=== PATIENT | male | born 1960 | race Caucasian/White ===

== ENCOUNTER → 2017-02-17 | Emergency (ER) | payer MEDICARE ==
[~2017-02-17] VITALS: Ht 200.7 cm; Wt 172.8 kg
[~2017-02-17] MED LIST: ALDACTONE100 MG PO; BACLOFEN20 MG PO; CYMBALTA60 MG PO; GOLYTELY SOLU4000 ML PO; INDERAL LA60 MG PO; JALYN 0.5-0.41 EACH PO; K-TAB ER20 MEQ PO; KRISTALOSE10 GM PO; LANTUS100 UNITS/ SUB-Q; LASIX20 MG PO; LEVAQUIN250 MG PO; MACRODANTIN100 MG PO; NORCO 7.5-3251 EACH PO; NYSTOP60 GM TOP; PROTONIX40 MG PO; XARELTO15 MG PO; XIFAXAN550 MG PO; ZOFRAN ODT4 MG PO
--- OUTSIDE RECORDS SUMMARY | ~2017-02-17 | XMS | Encounter Summary ---
Demographics + + + | Address | [address] | | | [place] [address] | + + + | Home Phone | | + + + | Preferred Language | Unknown | + + + | Marital Status | | + + + | Zoroastrianism Affiliation | Unknown | + + + | Race | White | + + + | Ethnic Group | Not or | + + + Author + + + | Author | [facility] | + + + | Organization | [facility] | + + + | Address | Unknown | + + + | Phone | Unavailable | + + + Support +------+ + + + +-------+ | Name | Relationship | Address | Phone | +------+ + + + +-------+ ECON | [address] | | [place] | [address] | +------+ + + + +-------+ Care Team Providers + +------+-------+ | Care Communications Program Manager Name | Role | Phone | + +------+-------+ | Conchita Walsh | PCP | tel | + +------+-------+ Encounter Details +--------+ + + + + | Date | Type | Department | Care Team | Description | +--------+ + + + + | 01/05/ | Abstract | Digestive Health | Clinic, | | | 2017 | | Center at [facility] 6th | Gastroenterology | | | | | Floor [address] | | | | | | [place] Mailcode: CH6D | | | | | | [place] [facility] | | | | | | and Healing, 6th | | | | | | Floor [place], [place] | | | | | | [address] | | | | | | [phone] | | | +--------+ + + + [...] + + | 04/20/ | Office | Hepatology | Tho Simmons MD | | | 2018 | Visit | | [address] | | | | | | [place], | | | | | | [place] [address] | | | | | | [phone] | | | | | | | | +--------+---------+ + + + as of this encounter Visit Diagnoses Not on filein this encounter"
--- OUTSIDE RECORDS SUMMARY | ~2017-02-17 | XMS | Encounter Summary ---
Demographics + + + | Address | [address] | | | [place] [address] | + + + | Home Phone | | + + + | Preferred Language | Unknown | + + + | Marital Status | | + + + | Taoist Affiliation | Unknown | + + + | Race | White | + + + | Ethnic Group | Not or | + + + Author + + + | Author | [facility] | + + + | Organization | [facility] | + + + | Address | Unknown | + + + | Phone | Unavailable | + + + Support +------+ + + + +-------+ | Name | Relationship | Address | Phone | +------+ + + + +-------+ ECON | [address] | | [place] | [address] | +------+ + + + +-------+ Care Team Providers + +------+-------+ | Care Life Sciences Teacher Name | Role | Phone | + +------+-------+ | Conchita Walsh | PCP | tel | + +------+-------+ Encounter Details +--------+ + + + + | Date | Type | Department | Care Team | Description | +--------+ + + + + | 01/05/ | Abstract | Digestive Health | Clinic, | | | 2017 | | Center at [facility] 6th | Gastroenterology | | | | | Floor [address] | | | | | | [place] Mailcode: CH6D | | | | | | [place] [facility] | | | | | | and Healing, 6th | | | | | | Floor [place], [place] | | | | | | [address] | | | | | | [phone] | | | +--------+ + + + [...] | | | | | [place], | | | | | | [place] [address] | | | | | | [phone] | | | | | | | | +--------+---------+ + + + as of this encounter Visit Diagnoses Not on filein this encounter"
== END ==
LOC: ED 04:29
PROC: 0T9B70Z Drainage of Bladder with Drainage Device, Via Natural or Artificial Opening (ICD-10-PCS; principal; 2017-02-17)
DX: T83.021A Displacement of indwelling urethral catheter, initial encounter (principal); I50.9 Heart failure, unspecified; J44.9 Chronic obstructive pulmonary disease, unspecified; E11.9 Type 2 diabetes mellitus without complications; Z88.1 Allergy status to other antibiotic agents; Z79.899 Other long term (current) drug therapy; Z79.891 Long term (current) use of opiate analgesic; Z79.4 Long term (current) use of insulin
CPT/HCPCS: 51702; 99283

== ENCOUNTER 2017-03-08 14:29 | Emergency (ER) | payer MEDICARE, OTHER ==
[~2017-03-08] VITALS: Ht 200.7 cm; Wt 190.5 kg
[~2017-03-08 14:29] MED LIST changes: -GOLYTELY SOLU4000 ML PO; -LEVAQUIN250 MG PO; -MACRODANTIN100 MG PO; -XARELTO15 MG PO; -XIFAXAN550 MG PO
[2017-03-08] MEDS ORDERED: XIFAXAN550 MG PO (17:24)
[2017-03-08] MEDS ORDERED: MACRODANTIN100 MG PO (17:25)
[2017-03-24] MEDS ORDERED: XARELTO15 MG PO (15:33)
[2017-03-24] MEDS ORDERED: LEVAQUIN250 MG PO (17:05)
== END 2017-03-08 17:37 | disposition home or self-care (01) ==
LOC: ED 14:29
PROC: 0T9B70Z Drainage of Bladder with Drainage Device, Via Natural or Artificial Opening (ICD-10-PCS; principal; 2017-03-08)
DX: N39.0 Urinary tract infection, site not specified (principal); D64.9 Anemia, unspecified; K72.90 Hepatic failure, unspecified without coma; I50.9 Heart failure, unspecified; J44.9 Chronic obstructive pulmonary disease, unspecified; E11.9 Type 2 diabetes mellitus without complications; Z88.1 Allergy status to other antibiotic agents; Z79.899 Other long term (current) drug therapy; Z79.4 Long term (current) use of insulin
CPT/HCPCS: 51702; 80053; 81001; 82140; 83880; 85025; 85610; 85730; 87077; 87088; 87186; 99283

== ENCOUNTER 2017-03-29 17:09 | Emergency (ER) | payer MEDICARE, OTHER ==
[~2017-03-29] VITALS: Ht 200.7 cm; Wt 190.5 kg
--- OUTSIDE RECORDS SUMMARY | ~2017-03-29 | XMS | Clinical Summary ---
Demographics + + + | Address | [address] | | | [place] [address] | + + + | Home Phone | | + + + | Preferred Language | Unknown | + + + | Marital Status | | + + + | Scientologist Affiliation | Unknown | + + + [...] [address] | | [place] | [address] | +------+ + + + +-------+ Care Team Providers + +------+-------+ | Care Cco Name | Role | Phone | + +------+-------+ | Conchita Walsh | PP | tel | + +------+-------+ Source Comments RUBEN is fully live on both [facility] and [facility] InPatient.[facility] Allergies Not on File Current Medications Not on file Active Problems Not on file Encounters +--------+ + + + + | Date | Type | Specialty | Care Team | Description | +--------+ + + + + | 01/05/ | Abstract | | Clinic, | | | 2016 | | | Gastroenterology | | +--------+ + + + + from Last 3 Months Social History + +-------+ +--------+------+ | Tobacco [...] | | | | | [place], | | | | | | [place] [address] | | | | | | [phone] | | | | | | | [...]
--- OUTSIDE RECORDS SUMMARY | ~2017-03-29 | XMS | Encounter Summary ---
Demographics + + + | Address | [address] | | | [place] [address] | + + + | Home Phone | | + + + | Preferred Language | Unknown | + + + | Marital Status | | + + + | Denominational Affiliation | Unknown | + + + | Race | White | + + + | Ethnic Group | Not or | + + + Author + + + | Author | [facility] | + + + | Organization | [facility] | + + + | Address | Unknown | + + + | Phone | Unavailable | + + + Support +------+ + + + +-------+ | Name | Relationship | Address | Phone | +------+ + + + +-------+ ECON | [address] | | [place] | [address] | +------+ + + + +-------+ Care Team Providers + +------+-------+ | Care Microsoft Office Instructor Name | Role | Phone | + +------+-------+ | Conchita Walsh | PCP | tel | + +------+-------+ Encounter Details +--------+ + + + + | Date | Type | Department | Care Team | Description | +--------+ + + + + | 01/05/ | Abstract | Digestive Health | Clinic, | | | 2017 | | Center at [facility] 6th | Gastroenterology | | | | | Floor [address] | | | | | | [place] Mailcode: CH6D | | | | | | [place] [facility] | | | | | | and Healing, 6th | | | | | | Floor [place], [place] | | | | | | [address] | | | | | | [phone] | | | +--------+ + + + [...] | | | | | [place], | | | | | | [place] [address] | | | | | | [phone] | | | | | | | | +--------+---------+ + + + as of this encounter Visit Diagnoses Not on filein this encounter"
--- OUTSIDE RECORDS SUMMARY | ~2017-03-29 | XMS | Encounter Summary ---
Demographics + + + | Address | [address] | | | [place] [address] | + + + | Home Phone | | + + + | Preferred Language | Unknown | + + + | Marital Status | | + + + | Gnosticist Affiliation | Unknown | + + + | Race | White | + + + | Ethnic Group | Not or | + + + Author + + + | Author | [facility] | + + + | Organization | [facility] | + + + | Address | Unknown | + + + | Phone | Unavailable | + + + Support +------+ + + + +-------+ | Name | Relationship | Address | Phone | +------+ + + + +-------+ ECON | [address] | | [place] | [address] | +------+ + + + +-------+ Care Team Providers + +------+-------+ | Care Transportation Dispatcher Name | Role | Phone | + +------+-------+ | Conchita Walsh | PCP | tel | + +------+-------+ Encounter Details +--------+ + + + + | Date | Type | Department | Care Team | Description | +--------+ + + + + | 01/05/ | Abstract | Digestive Health | Clinic, | | | 2017 | | Center at [facility] 6th | Gastroenterology | | | | | Floor [address] | | | | | | [place] Mailcode: CH6D | | | | | | [place] [facility] | | | | | | and Healing, 6th | | | | | | Floor [place], [place] | | | | | | [address] | | | | | | [phone] | | | +--------+ + + + [...] | | | | | [place], | | | | | | [place] [address] | | | | | | [phone] | | | | | | | | +--------+---------+ + + + as of this encounter Visit Diagnoses Not on filein this encounter"
--- OUTSIDE RECORDS SUMMARY | ~2017-03-29 | XMS | Clinical Summary ---
Demographics + + + | Address | [address] | | | [place] [address] | + + + | Home Phone | | + + + | Preferred Language | Unknown | + + + | Marital Status | | + + + | Islam Affiliation | Unknown | + + + [...] [address] | | [place] | [address] | +------+ + + + +-------+ Care Team Providers + +------+-------+ | Care Principal Solutions Architect Name | Role | Phone | + +------+-------+ | Conchita Walsh | PP | tel | + +------+-------+ Source Comments [facility]UB[facility] is fully [facility] both [facility] and [facility] Allergies Not on File Current [...] | | | | | [place], | | | | | | [place] [address] | | | | | | [phone] | | | | | | | [...]
[~2017-03-29 17:09] MED LIST changes: +CONSTULOSE10 GM/15 M PO; -INDERAL LA60 MG PO; -KRISTALOSE10 GM PO; +LEVAQUIN250 MG PO; +MACRODANTIN100 MG PO; +PROPRANOLOL HCL10 MG PO; +XARELTO15 MG PO; +XIFAXAN550 MG PO
[2017-03-29] MEDS ORDERED: GOLYTELY SOLU4000 ML PO (17:41)
== END 2017-03-29 18:27 | disposition home or self-care (01) ==
LOC: ED 17:09
PROC: 0T9B70Z Drainage of Bladder with Drainage Device, Via Natural or Artificial Opening (ICD-10-PCS; principal; 2017-03-29)
DX: Z46.6 Encounter for fitting and adjustment of urinary device (principal); E66.01 Morbid (severe) obesity due to excess calories; J44.9 Chronic obstructive pulmonary disease, unspecified; E11.22 Type 2 diabetes mellitus with diabetic chronic kidney disease; N18.9 Chronic kidney disease, unspecified; I50.9 Heart failure, unspecified; Z98.890 Other specified postprocedural states; Z88.1 Allergy status to other antibiotic agents; Z79.899 Other long term (current) drug therapy; Z79.4 Long term (current) use of insulin
CPT/HCPCS: 51702; 81001; 87088; 99283

== ENCOUNTER 2017-04-13 16:47 | Observation (INO) | payer MEDICARE, OTHER ==
[~2017-04-13] VITALS: Ht 200.7 cm; Wt 179.5 kg
--- OUTSIDE RECORDS SUMMARY | ~2017-04-13 | XMS | Clinical Summary ---
Demographics + + + | Address | [address] | | | [place] [address] | + + + | Home Phone | | + + + | Preferred Language | Unknown | + + + | Marital Status | | + + + | Adventist Affiliation | Unknown | + + + | Race | White | + + + | Ethnic Group | Not or | + + + Author + + + | Author | [facility] | + + + | Organization | [facility] | + + + | Address | Unknown | + + + | Phone | Unavailable | + + + Support +------+ + + + +-------+ | Name | Relationship | Address | Phone | +------+ + + + +-------+ ECON | [address] | | [place] | [address] | +------+ + + + +-------+ Care Team Providers + +------+ + | Care Head Of Transport Logistics Name | Role | Phone | + +------+ + | Conchita Walsh VENDOR QUALITY SUPERVISOR | PP | | + +------+ + Source Comments RUBEN is fully live on both [facility] and [facility] InPatient.[facility] Allergies Not on File Current Medications [...] Description | +--------+---------+ + + + | 04/20/ | Office | | Tho Simmons MD | | | 2018 | Visit | | [address] | | | | | | [place], | | | | | | [place] [address] | | | | | | [phone] | | | | | | | [...]
--- OUTSIDE RECORDS SUMMARY | ~2017-04-13 | XMS | Clinical Summary ---
Demographics + + + | Address | [address] | | | [place] [address] | + + + | Home Phone | | + + + | Preferred Language | Unknown | + + + | Marital Status | | + + + | Taoism Affiliation | Unknown | + + + [...] [address] | | [place] | [address] | +------+ + + + +-------+ Care Team Providers + +------+ + | Care Ginner Name | Role | Phone | + +------+ + | Conchita Walsh PRODUCTION GRIP | PP | | + +------+ + Source Comments RUBEN is fully live on both [facility] Amb[facility] and [facility] InPatient.[facility] Allergies Not on File Current [...] | | | | | [place], | | | | | | [place] [address] | | | | | | [phone] | | | | | | | [...]
--- OUTSIDE RECORDS SUMMARY | ~2017-04-13 | XMS | Clinical Summary ---
Demographics + + + | Address | [address] | | | [place] [address] | + + + | Home Phone | | + + + | Preferred Language | Unknown | + + + | Marital Status | | + + + | Confucianism Affiliation | Unknown | + + + [...] [address] | | [place] | [address] | +------+ + + + +-------+ Care Team Providers + +------+ + | Care Technical Operations Vice President Name | Role | Phone | + +------+ + | Conchita Walsh HIGHWAY LANDSCAPE ARCHITECT | PP | | + +------+ + Source Comments RUBEN is fully live on both [facility] Ambulatory and [facility] InPatient.[facility] Allergies Not on File Current Medications Not [...] | | | | | [place], | | | | | | [place] [address] | | | | | | [phone] | | | | | | | [...]
[~2017-04-13 16:47] MED LIST changes: +GOLYTELY SOLU4000 ML PO
--- NOTE | 2017-04-13 19:10 | NUR ---
SHIFT REPORT RECIEVED. PATIENT IN BED. DENIES PAIN AND STATES "I FEEL FINE". 3L NC PROVIDED PER PATIENT REQUEST. CALL LIGHT IN REACH.
--- NOTE | 2017-04-13 21:15 | NUR ---
PATIENT ASSESSMENT COMPLETE. PATIENT IS AAOX3. LUNGS ARE CLEAR. REPORTS PAIN IN HIS LOWER BACK, STATES THIS IS CHRONIC. ABD IS ROUND, SOFT, AND BOWEL SOUNDS ARE ACTIVE. PEDAL PULSES ARE WEAK/THREADY. SKIN ON LOWER EXTREMITIES IS RED, THICK AND ROUGH. PATIENT STATES THIS IS NORMAL FOR HIM. PATIENT IS LAYING IN BED, BUT DENIES DIZZINESS. PATIENT HAS MADERA IN PLACE THAT HE HAS HAD FOR A YEAR AND A HALF. OUTPUT IS DARK AND CONCENTRATED. PATIENT'S BP IS BELOW PARAMETERS. MD NOTIFIED. PATIENT'S BLOOD GLUCOSE WITHIN RANGE, NO INSULIN PER ORDERS. PATIENT REQUESTING A SNACK. PARTS IDENTIFICATION TECHNICIAN WILL BRING HIM A FRUIT PLATE. PATIENT'S IV IN RIGHT FOREARM FLUSHES EASILY.
--- NOTE | 2017-04-13 21:24 | NUR ---
FIRST UNIT OF PRBC ADMINISTERED. PRE BLOOD ADMIN VS COMPLETE. DISCUSSED ADVERSE REACTIONS WITH THE PATIENT AND HE VERBILIZED UNDERSTANDING. HE STATES HE HAS HAD BLOOD ADMINISTERED IN THE PAST WITHOUT ISSUE. BLOOD PRODUCT DOUBLE CHECKED WITH GRANT CAMPOS.
--- NOTE | 2017-04-13 21:40 | NUR ---
RN IN ROOM WITH PATIENT FOR FIRST 15MINS OF BLOOD ADMINISTRATION. BLOOD WAS RUNNING AT 75ML PER HOUR FOR THESE 15MINS. PATIENT HAS NO SIGNS OF ADVERSE REACTION. VS PERFORMED AND DOCUMENTED. BLOOD RUNNING AT 125 MLS/HR. WILL CONTINUE TO MONIOR.
--- NOTE | 2017-04-13 22:30 | NUR ---
PATIENT RESTING IN BED. BLOOD PRODUCTS INFUSING. IV SITE WNL. PATIENTS BREATHING IS REGULAR AND NONLABORED. CALL LIGHT IN REACH.
--- NOTE | 2017-04-14 | NUR ---
FIRST UNIT OF PRBC FINISHED. POST OP VS COMPLETE. MD CONTACTED ABOUT SYSTOLIC BP LOWER THAN PREVIOUS BP. NO NEW ORDERS. PATIENT DENIES ANY NEW SYMPTOMS. PATIENT IS LAYING IN BED. DENIES NEEDS AT THIS TIME. LAB UNABLE TO PROVIDED SECOND UNIT OF PRBC AT THIS TIME. NS INFUSING TO KEEP LINE PATENT.
--- NOTE | 2017-04-14 00:45 | NUR ---
SECOND UNIT OF PRBC STARTED. RN IN ROOM FOR FIRST 15MINS. BLOOD INFUSING AT 75MLS/HOUR. NO SIGNS OF ADVERSE REACTION. IV TIRTRATED UP TO 125ML/HOUR FOR THE REST OF THE UNIT OF BLOOD. PATIENT RESTING COMFORTABLY IN BED. DENIES NEEDS AT THIS TIME.
--- NOTE | 2017-04-14 01:40 | NUR ---
PATIENT RESTING IN BED. EYES CLOSED. RR 18. BLOOD PRODUCTS INFUSING, SITE WNL.
--- NOTE | 2017-04-14 03:15 | NUR ---
SECOND UNIT OF BLOOD HAS FINISHED. POST VITAL SIGNS DONE. PATIENT DENIES ANY NEW SYMPTOMS. IV IS FLUSHED AND SL. PATIENT DENIES ANY NEEDS AT THIS TIME. 3L NC IN PLACE. ALLOWED PATIENT TO REST. CALL LIGHT IN REACH.
--- NOTE | 2017-04-14 05:15 | NUR ---
LAB IN ROOM. PATIENT RESTING COMFORTABLY. HE DENIES ANY NEEDS THIS MORNING.
--- NOTE | 2017-04-14 05:23 | NUR ---
PATIENT RESTED ON AND OFF THROUGHOUT THE NIGHT. HE REPORTS ONLY FEELING TIRED. HE RECIEVED 2 UNITS PRBC. NO ADVERSE REACTION. BP HAS REMAINED LOW, MD AWARE. HE IS AAOX3. LUNGS ARE CLAER. MINIMAL EDEMA IN LOWER EXTREMITIES. CHRONIC MADERA. PATIENT HAS NOT BEEN OUT OF BED. USES WC AND WALKER AT HOME. 3L NC AT NIGHT.
--- NOTE | 2017-04-14 06:00 | NUR ---
CRITIAL LAB VALUE RECIEVED. NOTIFIED. NO NEW ORDERS. DOCUMENTED IN CRITICAL LAB VALUE BOOK.
--- NOTE | 2017-04-14 06:20 | NUR ---
PATIENT REPORTS FEELING TIRED THIS MORNING, BUT NOT DIZZY. HE HAS NO COMPLAINTS. LUNGS ARE CLEAR. ABD IS ROUND, SOFT, AND NONTEDER. BOWEL SOUNDS ACTIVE. MADERA IN PLACE. OUTPUT QS. CMS INTACT. IV SL. PATIENT WANTS TO ORDER BREAKFAST. NO MENU IN ROOM, WILL LOOK FOR ONE.
--- NOTE | 2017-04-14 07:20 | NUR ---
BEDSIDE HANDOFF REPORT RECEIVED FROM TRANSPORTATION ENGINEER RN. PT RESTING BED. PT WITH BLOODY NOSE, PROVIDED WITH WET WASH CLOTH. PT REQUESTING MENU TO ORDER BREAKFAST. PT DENIES OTHER NEEDS AT THIS TIME.
--- NOTE | 2017-04-14 08:29 | NUR ---
PT RESTIGN IN BED. PT ON 3L NC, CHRONIC NIGHT LEVEL, O2 SATS 100%, WEANED TO ROOM AIR, LUNG SOUNDS CLEAR, DENIES SOB. PT ASSISTED TO CHAIR FOR BREAKFAST, 1PA. PT BLOOD GLUCOSE 108, NO SS INSULIN GIVEN, DENIES NAUSEA, BOWEL TONES ACTIVE. PT WITH EDEMA TO BLE, 1+, PULSES PALPABLE. PT DENIES PAIN. SALINE LOCKED. MADERA CATH DRAINING FREELY. PT DENIES OTHER NEEDS AT THIS TIME. DISCUSSED PLAN OF CARE.
--- NOTE | 2017-04-14 09:58 | NUR ---
PT IS RESTING IN BED SAFELY WITH CALL LIGHT IN REACH. PT DID NOT NEED ANYTHING AT THE MOMENT
--- NOTE | 2017-04-14 11:13 | NUR ---
PT RESTING IN BED. PT DENIES NEEDS AT THIS TIME.
--- NOTE | 2017-04-14 11:57 | NUR ---
FAMILY MEMBER AT BEDSIDE, REQUESTING UPDATE. DISCUSSED MEDICATIONS, BLOOD TRANSFUSION LAST NIGHT, BLOOD LEVELS. PT DENIES OTHER NEEDS AT THIS TIME.
--- NOTE | 2017-04-14 13:50 | NUR ---
PT IS RESTING IN BED WITH CALL LIGHT IN REACH. PT ASKED FOR MORE ICE WATER
[2017-04-14] MEDS ORDERED: BACLOFEN20 MG PO (15:17)
--- NOTE | 2017-04-14 15:17 | NUR ---
PT TO RECIEVED 2 UNITS OF BLOOD. IV TO RIGHT FORARM, FLUSHED, INFILTATED. ATTEMPTED TO GAIN IV ACCESS, UANBLE TO OBTAIN, FLOAT RN AND ENZYME CHEMIST RN TO BED TO ATTMEP IV INSERTION, UNABLE. AWAITING ED RN TO COME TO BEDSIDE. PT RESTIGN IN BED.
[2017-04-14] MEDS ORDERED: ANORO ELLIPTA1 EACH INH (15:18)
[2017-04-14] MEDS ORDERED: HYDROCODON-ACE1 EAC8 PO (15:18)
[2017-04-14] MEDS ORDERED: ALBUTEROL2.5 MG/3 M INH (16:18)
--- NOTE | 2017-04-14 16:19 | NUR ---
MED REC COMPLETE
--- NOTE | 2017-04-14 17:12 | NUR ---
INFUSION 1 OF 2 STARTED. 2 RN VERIFICATION WITH SUKHJINDER FANG RN. THIS VACUUM EXTRACTOR OPERATOR REMAINED WITH PT DURING FIRST 15 MINUTES OF TRANSFUSION, NO S/S OF TRANSFUSION REACTION. PT EDUCATED ON S/S OF REACTION AND DIRECTED TO CALL NURSE IF EXPERIENCING SYMPTOMS.
--- NOTE | 2017-04-14 17:20 | NUR ---
PT BLOOD GLUCOSE 128, SS INSULIN HELD. PT COMPLAINT OF NAUSEA, ASSESSED FOR TRANSFUSION REACTION, NO S/S OF REACTION. DINNER AT BEDSIDE. PT DENIES OTHER NEEDS AT THIS TIME.
--- NOTE | 2017-04-14 17:58 | NUR ---
PT IS SITTING UP IN BED EATING HIS DINNER
--- NOTE | 2017-04-14 18:20 | NUR ---
PT DENIES PAIN. PT ON RA-3L, WEARS CHRONIC O2, LUNG SOUNDS CLEAR. PT TOLERATIGN REGULAR DIET, ACHS BG, HAS NOT REQUIRED SS NOVOLOG COVERAGE. PT UP WITH 1PA. NEW IV ACCESS OBTAINED TO RIGHT AC, RECEIVING FIRST UNIT OF BLOOD. PT WITH CHRONIC MADERA IN PLACE, DRAINING QS. PT HAD 1 LARGE BM TODAY, RECEIVING LACTULOSE. PT CONTINUES TO BE HYPOTENISVE.
--- NOTE | 2017-04-14 19:00 | NUR ---
SHIFT REPORT RECIEVED AT BEDSIDE. PATIENT APPEARED TO BE SLEEPING. OPENED HIS EYES WHEN RN ENTERED ROOM. PATIENT DENIES ANY NEEDS AT THIS TIME AND STATED HE HAD A GOOD DAY. 1ST UNIT OF PRBC INFUSING AT THIS TIME. IV SITE WNL. CALL LIGHT IN REACH.
--- NOTE | 2017-04-14 19:15 | NUR ---
FIRST UNIT OF BLOOD PRODUCT HAS FINISHED INFUSING. IV SITE WNL. NS FLUSHING LINE AT THIS TIME. CALLED LAB FOR SECOND UNIT. SONIA LUNSFORD WENT TO PICK IT UP.
--- NOTE | 2017-04-14 19:45 | NUR ---
SECOND UNIT OF PRBC STARTED. VERIFIED WITH SECOND RN, ANNEL. PRE VS COMPLETED, WNL.
--- NOTE | 2017-04-14 20:00 | NUR ---
PATIENT ASSESSMENT COMPLETE. PATIENT IS AAOX3. LUNGS ARE CLEAR, DIMINISHED IN THE BASES. 3L NC AT NIGHT, PATIENT DOES THIS AT HOME. ABD IS LARGE, ROUND, NONTENDER, AND BOWEL SOUNDS ACTIVE. PATIENT'S SKIN IS DUSKY ON HIS ABD AND LOWER EXTREMITIES. 1+ EDEMA IN THE LOWER EXTREMITIES. SKIN IS GROSSLY INTACT. DRY SKIN ON BACK, PATIENT STATES "I'VE BEEN BROKEN OUT FOR ABOUT A MONTH". LOTION APPLIED. PATIENT HAS CHRONIC MADERA, OUTPUT QS. PATIENT DENIES FEELING DIZZY OR LIGHTHEADED.
--- NOTE | 2017-04-14 20:15 | NUR ---
SECOND UNIT OF PRBC INFUSED AT 75ML/HR FOR FIRST 15MINS. RN STAYED IN ROOM WITH PATIENT. 15MIN VS COMPLETED, WNL. NO ADVERSE REACTION. PATIENT DENIES NEEDS. CALL LIGHT IN REACH. WILL CONTINUE TO MONITOR.
--- NOTE | 2017-04-14 20:35 | NUR ---
NO ADVERSE REACTION TO BLOOD INFUSION, RESTING, OPENS EYES EASILY, NO C/O PAIN, NO REQUESTS
--- NOTE | 2017-04-14 21:05 | NUR ---
PATIENT RESTING IN BED WATCHING TV. HE DENIES NEEDS AT THIS TIME. CALL LIGHT IN REACH.
--- NOTE | 2017-04-14 22:10 | NUR ---
2ND UNIT OF PRBC HAS FINISHED. NS INFUSING TO FLUSH LINE. IV SITE WNL. PATIENT RESTING WITH EYES CLOSED. RR18. CALL LIGHT IN REACH.
--- NOTE | 2017-04-14 23:10 | NUR ---
1 HOUR POST OP VS COMPLETED, WNL. PATIENT UP TO THE BATHROOM, SBA. PATIENT HAD LARGE SEMI-FORMED BM. LINENS CHANGED ON BED. PATIENT BACK TO BED. DENIES FURTHER NEEDS. IV FLUSHED WITH NS, WNL. CALL LIGHT IN REACH.
--- NOTE | 2017-04-15 01:01 | NUR ---
PATIENT RESTING IN BED. EYES CLOSED. RR18. CALL LIGHT IN REACH.
--- NOTE | 2017-04-15 03:10 | NUR ---
PATIENT RESTING IN BED. EYES CLOSED. RR18. CALL LIGHT IN REACH.
--- NOTE | 2017-04-15 05:27 | NUR ---
PATIENT SLEPT WELL THROUGHOUT THE NIGHT. RECIEVED 2 UNITS OF PRBC LAST NIGHT, NO REACTION. VS WNL. 3L NC AT NIGHT. SBA TO BATHROOM. LARGE SEMI FORMED BM LAST NIGHT. CHRONIC MADERA IN PLACE, OUTPUT QS. ADA DIET, BLOOD GLUCOSE CHECKS WITH MEALS.
--- NOTE | 2017-04-15 05:40 | NUR ---
MORNING ASSESSMENT AND MEDS GIVEN. PATIENT REPORTS FEELING TIRED THIS MORNING, BUT DENIES PAIN. HE IS ON 2L NC WHILE IN BED. LUNGS ARE CLEAR, DIMINISHED IN THE BASES. HIS ABD IS LARGE AND ROUND, SOFT AND NONTENDER. BOWEL SOUNDS ARE ACTIVE. 1+ EDEMA IN LOWER EXTREMITIES. DUSKY IN COLOR, WEAK PULSES. HE REPORTS A GOOD APPETITE AND IS EXCITED FOR BREAKFAST. HE IS HOPEFUL THAT HE GETS TO RETURN HOME TODAY.
--- NOTE | 2017-04-15 06:00 | NUR ---
DISCUSSED CONCERN OF PATIENT NOT HAVING MORNING LABS WITH HOSPITALIST. VERBAL ORDERS FOR CBC RECIEVED AND INPUT. LAB CONTACTED. PATIENT AWARE.
--- NOTE | 2017-04-15 07:10 | NUR ---
BEDSIDE HANDOFF REPORT RECEIVED FROM CHIEF OPERATING ENGINEER RN. PT RESTING IN BED. PT DENIES NEEDS AT THIS TIME.
--- NOTE | 2017-04-15 08:30 | NUR ---
PT SITTING ON EDGE OF BED. ATE BREAKFAST, BLOOD GLUCOE 134, SS INSULIN HELD. PT ON 2L NC, O2 SATS 100%, LUNG SOUNDS CLEAR WITH DIMINISHED BASES. PT TOLERATING REGULAR DIET, DENIES NAUSEA, BOWEL TONES ACTIVE. PT WITH IV SALINE LOCKED. CMS INATCT, 1+ EDEMA TO BLE. PT WITH CHRONIC MADERA, DRAINING FREELY. PT DENIES PAIN. MD TO BEDSIDE TO DISCUSS DISCHARGE FOR TODAY. PT DENIES OTHER NEEDS AT THIS TIME.
--- NOTE | 2017-04-15 11:35 | NUR ---
PT COMPLAINT OF HEADAHCE. OFFERED TYLENOL PER EMAR, PT DECLINING DUE TO LIVER IMPAIRMENT, REQUEST IBUPROFEN. MD CALLED, DISCUSSED PT REQUEST, MD WILL NOT ADD IBUPROFEN DUE TO RISK OF GASTRIC BLEEDING AND CHRONIC ANEMIA. DISCUSSED WITH PT AND EDUCATED ON TYLENOL WITH LIVER IMPAIRMENT, PT CONTINUES TO DECLINE, INSTRUCTED PT TO REST. AWAITING FAMILY TO ARRIVE FOR DISCHARGE.
== END 2017-04-15 13:10 | disposition home or self-care (01) ==
LOC: ED 16:47 → MS 16:49
PROVIDERS: ADMIT Internal Medicine
DX: D64.9 Anemia, unspecified (principal); K76.9 Liver disease, unspecified; N19 Unspecified kidney failure; J44.9 Chronic obstructive pulmonary disease, unspecified; E80.6 Other disorders of bilirubin metabolism; E72.20 Disorder of urea cycle metabolism, unspecified; R74.0 Nonspecific elevation of levels of transaminase and lactic acid dehydrogenase [LDH]; R79.89 Other specified abnormal findings of blood chemistry; E11.9 Type 2 diabetes mellitus without complications; G89.29 Other chronic pain; N40.0 Benign prostatic hyperplasia without lower urinary tract symptoms; E66.9 Obesity, unspecified; Z96.0 Presence of urogenital implants; Z77.22 Contact with and (suspected) exposure to environmental tobacco smoke (acute) (chronic); Z99.81 Dependence on supplemental oxygen; Z88.1 Allergy status to other antibiotic agents; Z68.41 Body mass index [BMI] 40.0-44.9, adult; Z79.2 Long term (current) use of antibiotics; Z79.4 Long term (current) use of insulin; Z79.899 Other long term (current) drug therapy
CPT/HCPCS: 36415; 36430; 80048; 80053; 82607; 82746; 83540; 83605; 83735; 83880; 85025; 85045; 85610; 86850; 86900; 86901; 86920; 96360; 99285; G0378; J7120; P9016

== ENCOUNTER 2017-04-27 16:28 | Inpatient (IN) | payer MEDICARE, OTHER ==
[~2017-04-27] VITALS: Ht 200.7 cm; Wt 157.9 kg
--- OUTSIDE RECORDS SUMMARY | ~2017-04-27 | XMS | Clinical Summary ---
Demographics + + + | Address | [address] | | | [place] [address] | + + + | Home Phone | | + + + | Preferred Language | Unknown | + + + | Marital Status | | + + + | Shinto Affiliation | Unknown | + + + [...] [address] | | [place] | [address] | +------+ + + + +-------+ Care Team Providers + +------+ + | Care Brand Protection Manager Name | Role | Phone | + +------+ + | Conchita Walsh AZURE DEVELOPER | PP | | + +------+ + Source Comments RUBEN is fully live on both [facility] Ambulatory and [facility] InPatient.[facility] Allergies Not on File Current Medications [...]
--- OUTSIDE RECORDS SUMMARY | ~2017-04-27 | XMS | Clinical Summary ---
Demographics + + + | Address | [address] | | | [place] [address] | + + + | Home Phone [...] [address] | | [place] | [id number] | +------+ + + + +-------+ Care Team Providers + +------+ + | Care Cage Manager Name | Role | Phone | + +------+ + | Conchita Walsh AUTOMOBILE UPHOLSTERY TRIM INSTALLER | PP | | + +------+ + Source Comments RUBEN is fully live on both [facility] and [facility] InPatient.[facility] Allergies Not on File Current Medications [...]
--- OUTSIDE RECORDS SUMMARY | ~2017-04-27 | XMS | Clinical Summary ---
Demographics + + + | Address | [address] | | | [place] [address] | + + + | Home Phone | | + + + | Preferred Language | Unknown | + + + | Marital Status | | + + + | Pentecostalism Affiliation | Unknown | + + + [...] [address] | | [place] | [address] | +------+ + + + +-------+ Care Team Providers + +------+ + | Care Office Mail Clerk Name | Role | Phone | + +------+ + | Conchita Walsh OFFICE NURSE PRACTITIONER | PP | | + +------+ + Source Comments RUBEN is fully live on both [facility] and [facility] InPatient.[facility] Allergies Not on File Current Medications [...]
[~2017-04-27 16:28] MED LIST changes: +ALBUTEROL2.5 MG/3 M INH; +ANORO ELLIPTA1 EACH INH; +HYDROCODON-ACE1 EAC8 PO
--- NOTE | 2017-04-27 21:19 | NUR ---
REPORT RECEIVED FROM Gomez SMITH. PT ARRIVES VIA STRETCHER. PT SOMNOLENT, WILL NOT ANSWER QUESTIONS, WILL ASSIST TO ROLL OVER IN BED WHEN ASKED. DOES NOT APPEAR TO BE IN ANY DISTRESS. LUNGS SOUND CLEAR, DIM IN BASES, 3L O2 VIA NC WHICH IS CHRONIC FOR HIM. HR REGULAR. BOWEL TONES ACTIVE. MADERA IN PLACE, NEW DRAINAGE BAG CONNECTED. BED ALARM IS ON FOR SAFETY, PT IS IN VIEW OF NURSES' STATION. WILL CONTINUE TO MONITOR.
--- NOTE | 2017-04-27 21:44 | NUR ---
PT'S SON AND IN ROOM TO VISIT PT AT THIS TIME.
--- NOTE | 2017-04-27 22:10 | NUR ---
LACTULOSE ENEMA GIVEN AT THIS TIME. PT CONTINUES TO REST, WILL NOT ANSWER QUESTIONS, BUT WILL FOLLOW DIRECTIONS TO ASSIST IN TURNING.
--- NOTE | 2017-04-27 23:11 | NUR ---
PT INCONTINENT OF LARGE, FORMED BM. PERICARE AND NEW CHUX PROVIDED. URINE SAMPLE SENT TO LAB, WILL CONTINUE TO MONITOR.
--- NOTE | 2017-04-28 00:10 | NUR ---
ASSESSMENT COMPLETED. PT REMAINS SOMOLENT, ABLE TO STATE HIS NAME, ONLY ORIENTED TO SELF. DOES NOT APPEAR TO BE IN ANY DISTRESS. LUNGS REMAIN CLEAR, 3L O2 VIA NC. HR REGULAR. BOWEL TONES ACTIVE. HAD A SMALL SMEAR OF BM, REGINALDO-CARE PROVIDED. MADERA PATENT, DRAINING ZACH URINE. SKIN REMAINS JAUNDICED, GENERALIZED EDEMA. WILL CONTINUE TO MONITOR.
--- NOTE | 2017-04-28 02:01 | NUR ---
PT RESTING, APPEARS TO HAVE SLIGHTLY BLOODY NOSE, NASAL CANNULA IS OUT OF NOSTRILS AND SATS 96-98%. REMOVED OXYGEN AT THIS TIME AND WILL CONTINUE TO MONITOR.
--- NOTE | 2017-04-28 04:08 | NUR ---
ASSESSMENT COMPLETED, NO CHANGES FROM PREVIOUS ASSESSMENT. PT RESTING, NO APPARENT DISTRESS. REMAINS ON RA, SPO2:97%. WILL CONTINUE TO MONITOR.
--- NOTE | 2017-04-28 05:56 | NUR ---
OSCAR FROM LAB CALLED TO NOTIFY ME OF CRITICAL LAB VALUE. HGB: 6.7. DR. BETTENCOURT NOTIFIED, NO NEW ORDERS RECEIVED AT THIS TIME.
--- NOTE | 2017-04-28 06:09 | NUR ---
NEW GOWN, TOP SHEET, AND BLANKET PROVIDED FOR PT. OLD ONES HAD LITTLE BIT OF BLOOD ON THEM FROM PT WIPING HIS NOSE.
--- NOTE | 2017-04-28 08:35 | NUR ---
IV SITE INTACT, NO REDNESS OR SWELLING NOTED, FLUSHES EASILY, PT DOES NOT FLINCH WITH FLUSH. PT ABLE TO ANSWER SOME YES OR NO QUESTIONS, NOT ALL. PT FOLLOWS DIRECTION WITH REPOSITIONING. PT APPEARS CALM DROWSY, NO ATTEMPT MADE BY THE PT TO COMMUNICATE OR INTERACT. VITALS STABLE AT THIS TIME.
--- NOTE | 2017-04-28 09:00 | NUR ---
COMPLETE BED CHANGE DONE. PT ABLE TO ASSIST WITH ROLLING BACK AND FORTH. FULL BED BATH DONE, SHAMPOO CAP. PT DROWSY AND SOMULENT DURING PROCESS, BUT COOPERATIVE.
--- NOTE | 2017-04-28 09:50 | NUR ---
PT ABLE TO SWALLOW WATER WELL. PT DENIES PAIN AT THIS TIME.
--- NOTE | 2017-04-28 12:01 | NUR ---
PT RRECENTLY MOVED FROM [facility]. BETH FIELDS MENTIONED THAT MED RECORDS FOR HIM ARE SKETCHY. PT IS IN LIVER FAILURE, HIGH AMONIA LEVELS IN BLOOD. PT WAS SOMEWHAT RESPONSIVE WHEN I ENTERED. ACKNOWLEDGED ME, DENIED ANY PAIN, THEN DRIFTED OFF. EXTENDED A BLESSING, WILL CONTINUE TO FOLLOW
--- NOTE | 2017-04-28 12:01 | NUR ---
IV SITE IN LEFT WRIST PULLED BY PT, NO REDNESS OR SWELLING NOTED, TIP OF CATH INTACT. NEW IV STARTED IN RT UPPER ARM BY MALGORZATA CAMPOS. PT CARMELO WELL, COOPERATIVE, NON COMMUNICATIVE. VITALS WNL AT THIS TIME. PT WILL ANSWER YES OR NO QUESTIONS BUT DOES NOT ATTEMPT TO CONVERSE.
--- NOTE | 2017-04-28 12:40 | NUR ---
PT DENIES DESIRE FOR LUNCH AT THIS TIME. REMINDED PT THAT HE IS ALLOWED TO ORDER A TRAY AT ANY TIME. PT IS AWARE THAT HE IS ON A CLEAR LIQUID DIET.
--- NOTE | 2017-04-28 14:33 | NUR ---
pt resting quietly at this time, vitals wnl. pt well able to reposition self in bed.
--- NOTE | 2017-04-28 15:12 | NUR ---
CLEAR LIQUID TRAY GIVEN TO PT, IS AT THE BEDSIDE ASSISTING TO FEED PT JELLO AND DRINK ENSURE.
--- NOTE | 2017-04-28 15:58 | NUR ---
PT SITTING UP IN BED DRINKING COFFEE. AT BEDSIDE. DISCUSSED CURRENT PLAN OF CARE, ALL QUESTIONS ANSWERED AT THIS TIME. PT DENIES PAIN, NAUSEA, AND SOB. PT LOC HAS BEEN SLOWLY INCREASING ALL SHIFT. PT CURRENTLY WILL ANSWER QUESTIONS WITH MORE THAN A "YES" OR "NO" ANSWER.
--- NOTE | 2017-04-28 16:30 | NUR ---
AT THE BEDSIDE DISCUSSING PLAN OF CARE AND OPTIONS WITH PT AND HIS ANDREA. ALL QUESTIONS ANSWERED. STATES SHE IS GOING HOME FOR THE NIGHT.
--- NOTE | 2017-04-28 17:40 | NUR ---
MADERA CATH CARE DONE, REGINALDO CARE DONE, NYSTATIN POWDER APPLIED BILAT GROIN FOLDS, TESTIES, AND UNDER PANUS. PT CARMELO WELL, MADERA IN PLACE AND DRAINING URINE WELL. URINE REMAINS ORANGE IN COLOR.
--- NOTE | 2017-04-28 17:52 | NUR ---
MD was notified of the increased respirations of 24 and the increase in temp to 100.0. MD ordered acetaminephine PRN.
--- NOTE | 2017-04-28 18:35 | NUR ---
PT EATING A HAMBURGER FOR DINNER, SITTING UP IN BED, MINIMAL ASSIST REQUIRED FOR PT TO EAT. 3 UNITS SLIDING SCALE INSULIN GIVEN WITH MEAL.
--- NOTE | 2017-04-28 19:34 | NUR ---
SHIFT REPORT RECEIVED FROM WILLIAN, STUDENT NURSE, AND DONNIE, RN. PT IS CURRENTLY RESTING IN BED. HE FINISHED 100% OF HIS DINNER. RA. BRIAN MADERA PATENT. PT DENIES REQUESTS AT THIS TIME.
--- NOTE | 2017-04-28 20:44 | NUR ---
ASSESSMENT COMPLETED. PT IS ALERT, FLAT AFFECT, ONLY ORIENTED TO SELF. DENIES PAIN. LUNGS CLEAR, DIM, RA. HR REGULAR. BOWEL TONES ACTIVE, DENIES NAUSEA. GENERALIZED EDEMA. CMS INACT. IV FLUSHED WNL, BRUISING NOTED AT IV INSERTION SITE, CIPRO INFUSION STARTED. CB, NO INSULIN COVERAGE REQUIRED. MADERA PATENT, DRAINING ORANGE URINE. HE DENIES NEEDS AT THIS TIME, LIGHTS DIMMED. WILL CONTINUE TO MONITOR.
--- NOTE | 2017-04-28 21:40 | NUR ---
CIPRO INFUSION COMPLETED, IV SALINE LOCKED AT THIS TIME. PT AWAKE, RESTING IN BED. DENIES NEEDS. WILL CONTINUE TO MONITOR.
--- NOTE | 2017-04-28 23:00 | NUR ---
CHECKED IN ON PT WHO IS RESTING, DENIES NEEDS. RR:20, SPO2: 100% ON RA. HR:80. SANTY PATENT. WILL CONTINUE TO MONITOR.
--- NOTE | 2017-04-29 00:15 | NUR ---
ASSESSMENT COMPLETED. NO CHANGES FROM PREVIOUS ASSESSMENT. PT RESTING, NO APPARENT DISTRESS. MADERA PATENT. WILL CONTINUE TO MONITOR.
--- NOTE | 2017-04-29 02:00 | NUR ---
CHECKED IN ON PT WHO IS AWAKE, RESTING IN BED. HELPED HIM PUT HIS GOWN BACK ON AND UNTANGLE HIS BP AND SPO2 CORDS. PT DENIES NEEDS AT THIS TIME. BRIAN MADERA PATENT. WILL CONTINUE TO MONITOR.
--- NOTE | 2017-04-29 03:58 | NUR ---
ASSESSMENT COMPLETED. NO CHANGES FROM PREVIOUS ASSESSMENT. PT DENIES PAIN AND NAUSEA. REMAINS ON RA, LUNGS CLEAR/DIM. IV SL. MADERA PATENT. REMAINS ORIENTED ONLY TO SELF. DENIES NEEDS, WILL CONTINUE TO MONITOR.
--- NOTE | 2017-04-29 06:01 | NUR ---
PT AWAKE, RESTING IN BED. CONTINUES TO DENY NEEDS. DOES NOT APPEAR TO BE IN ANY DISTRESS. SANTY VIDES. WILL CONTINUE TO MONITOR.
--- NOTE | 2017-04-29 08:43 | NUR ---
PT IS AWAKE AND FEEDING SELF BKF AT THIS TIME. HE IS EATING WELL AT THIS TIME. HOB ELEVATED, WATCHING TV AND NO C/O'S AT THIS TIME
--- NOTE | 2017-04-29 10:22 | NUR ---
Pt up with physical therapy for a walk. Walked for 5 minutes and now sitting up in chair. Transferring to med/surg today.
--- NOTE | 2017-04-29 10:32 | NUR ---
PATIENT NOW ON A 2 GRAM SODIUM DIET. HE HAS A FLAT AFFECT. SITTING UP IN CHAIR. HE LIKES EGGS AND TOAST FOR BREAKFAST. DOESN'T EAT LUNCH. SOMETIMES DRINKS BROTH. DINNER MIGHT BE STEAK, MAYBE A POTATO. HE SAYS HE DOES NOT EAT CANNED SOUPS, TV DINNERS, CHIPS, PRETZELS, OR CRACKERS. THAT'S ALL I COULD TALK TO HIM ABOUT BECAUSE HE WAS NOT FEELING WELL. LOW SODIUM NUTRITION THERAPY HANDOUT LEFT AT BEDSIDE.
--- NOTE | 2017-04-29 10:36 | NUR ---
PT HAS BEEN UP AMBULATING WITH PHYSICAL THERAPY, DID WELL WITH THIS, THEN TO THE CHAIR. WHILE IN THE CHAIR PT C/O NAUSEA 4MG IVP ZOFRAN GIVEN AT THIS TIME.
--- NOTE | 2017-04-29 11:46 | NUR ---
PT REMAINS UP IN THE CARE AM CARE COMPLETED AT THIS TIME, PT DENIES THAT HE WANTS TO EAT AT THIS TIME. CONTIOUES TO BE UP IN THE CHAIR WATCHING TV.
--- NOTE | 2017-04-29 12:44 | NUR ---
REPORT CALLED TO M/S JAVIER Wilks AT THIS TIME. ALL QUESTIONS ANSWERED AND PT WILL GO OVER VIA CHAIR WITH ALL PERSON BELONGINGS.
--- NOTE | 2017-04-29 13:00 | NUR ---
THIS SATELLITE TELEVISION INSTALLER AGREES WITH ALL OF THE STUDENTS NURSES CHARTING. (FOREIGN/DCKAIA).
--- NOTE | 2017-04-29 13:01 | NUR ---
PT TRANSFERED TO ROOM 107 VIA CHAIR. PT CARMELO THIS WELL. ALL PERSONAL BELONGINGS HAD BEEN SENT HOME WITH HIS ON ADMISSION PER STAFF THAT WAS WORKING. ALSO SEE CHARTING FROM ADMIT.
--- NOTE | 2017-04-29 17:53 | NUR ---
NEW CCU TRSF. END STAGE RENAL FAILURE. LAST AMMONIA 04/27 DR AWARE. CONT. ORAL ENULOSE - TAKING WELL. BS 125 AT DINNER - DID NOT EAT LUNCH OR HAVE COVERAGE. UP IN CH. DENIES NEEDS.
--- NOTE | 2017-04-29 19:46 | NUR ---
FLAT AFFECT, WATCHING TV, DENIES C/O PAIN. SL INTACT. ATTENDS IN PLACE, F.C PATENT, DRAINING ZACH COLORED URINE. JAUNDICED SKIN.
--- NOTE | 2017-04-29 21:35 | NUR ---
CHARGE NURSE ROUNDS, PT FLAT AFFECT, FOLLOWS INSTRUCTIONS, NO C/O PAIN, F/C INTACT, ABX IV INFUSING W/O PROBLEMS.
--- NOTE | 2017-04-30 00:55 | NUR ---
VITALS AND I&OS DONE AND CHARTED. BEDSIDE TABLE AND CALL LIGHT IN REACH. PT NEEDS NOTHING ELSE AT THIS TIME.
--- NOTE | 2017-04-30 02:11 | NUR ---
VITALS AND I&OS DONE AND CHARTED. INFORMED HIS RN KOTA OF LOW B\P. BEDSIDE TABLE AND CALL LIGHT IN REACH. PT NEEDS NOTHING ELSE AT THIS TIME.
--- NOTE | 2017-04-30 02:15 | NUR ---
Pt pulled iv r upper arm, tip intact, will restart iv, pt aware. Pt turns self in bed.
--- NOTE | 2017-04-30 05:45 | NUR ---
PT AWAKENS EASILY, CONTINUES TO HAVE FLAT AFFECT, SLOW RESPONSE TO QUESTIONS/INSTRUCTIONS, SPEAKS IN SLOW VOICE WITH DELAYED REACTION. SKIN JAUNDICED.PT HAS BRUISING BOTH ARMS AND LEGS. TOLERATING DIET W/O PROBLEMS. ON ROOM AIR, DENIES C/O SOB OR DISTRESS. PULLED IV FROM R ARM DURING THE NIGHT. WILL RESTART IV. WEARS ATTENDS, HAS NOT HAD A BM THIS SHIFT, SCHEDULED LACTULOSE GIVEN EARLIER THIS SHIFT. F/C PATENT DRAINING QS DARK YELLOW/ORANGE COLORED URINE. DENIES C/O ADVERSE REACTION TO ABX. TOOK MEDS W/O PROBLEMS, NO C/O LOW OR HIGH BLOOD SUGAR LEVELS. PT TURNS SELF IN BED. FOLLOWS INSTRUCTIONS WELL
--- NOTE | 2017-04-30 06:36 | NUR ---
UNABLE TO RESTART IV AFTER 5 TRIES BY 2 DIFFERENT RNS. PROCEDURE EXPLAINED TO PT. WARM PACKS APPLIED TO ARMS, PT DECLINED "THEY ARE TOO WARM". WILL NOTIFY INCOMING SHIFT AND INCOMING [facility]. PT NOTIFIED OF ABOVE. "OK" STATED. WILL NOTIFY MD IF INCOMING SHIFT IS UNABLE TO RESTART IV.
--- NOTE | 2017-04-30 07:00 | NUR ---
REPORT RECEIVED FROM BETH ESCUDERO. PT IS AWAKE AND LAYING IN BED. PT APPEARS COMFORTABLE.
[2017-04-30] MEDS ORDERED: CIPROFLOXACIN250 MG PO (09:16)
[2017-04-30] MEDS ORDERED: XIFAXAN550 MG PO (09:17)
--- NOTE | 2017-04-30 09:26 | NUR ---
PT UP TO CHAIR FOR BREAKFAST AND ASSESSMENT. IN TO SEE PT. PT STATES SHE IS SENDING HIM HOME AND HE IS EXCITED. MADERA DRAINING DARK YELLOW URINE. LUNGS CLEAR AND DIM. HR REGULAR.
--- NOTE | 2017-04-30 10:43 | NUR ---
PT DISCHARGED HOME WITH . IV HAD BEEN REMOVED DURING ROOF TILE LAYER. VS STABLE. WEARING A GOWN HOME WITH BLANKET OVER LAP DID NOT BRING CLOTHES. PT CONTINUES TO HAVE FLAT AFFECT WITH MOST EDUCATION DONE WITH . ANSWERED ALL QUESTIONS. HAD FILLED XIFAXIN ON DAY OF ADMIT SO SHE STATED SHE DOES NOT NEED THE FOLLOW UP FOR REFILL. WHEELED OUT TO CAR WITH SONIA SAMUELS.
--- NOTE | 2017-05-02 08:17 | NUR ---
ORDER, CLINICALS FAXED TO HOME HEALTH DEPT AT [facility]. CALLED AND SPOKE WITH VALERIO IN OFFICE TO LET HER KNOW OF FAX, AND THAT PATIENT WAS DISCHARGED TUESDAY.
== END 2017-04-30 10:33 | disposition home or self-care (01) | DRG 442 ==
LOC: ED 16:28 → CCU 19:35 → MS 04-29 12:55
PROVIDERS: ADMIT Internal Medicine
DX: K72.00 Acute and subacute hepatic failure without coma (principal); E72.4 Disorders of ornithine metabolism; E46 Unspecified protein-calorie malnutrition; N39.0 Urinary tract infection, site not specified; T83.511A Infection and inflammatory reaction due to indwelling urethral catheter, initial encounter; E66.9 Obesity, unspecified; D69.6 Thrombocytopenia, unspecified; I50.9 Heart failure, unspecified; J44.9 Chronic obstructive pulmonary disease, unspecified; Z66 Do not resuscitate; Z51.5 Encounter for palliative care; N18.9 Chronic kidney disease, unspecified; E11.22 Type 2 diabetes mellitus with diabetic chronic kidney disease; Z99.2 Dependence on renal dialysis; N40.1 Benign prostatic hyperplasia with lower urinary tract symptoms; N39.498 Other specified urinary incontinence; G89.29 Other chronic pain; Z79.4 Long term (current) use of insulin; D63.1 Anemia in chronic kidney disease; F17.221 Nicotine dependence, chewing tobacco, in remission
CPT/HCPCS: 36415; 80053; 81001; 82140; 83735; 85025; 85610; 86850; 86900; 86901; 87077; 87088; 87181; 87186; 97162; J0744; J2405

== ENCOUNTER 2017-05-13 14:40 | Inpatient (IN) | payer MEDICARE, OTHER ==
[~2017-05-13] VITALS: Ht 200.7 cm; Wt 148.9 kg
--- OUTSIDE RECORDS SUMMARY | ~2017-05-13 | XMS | Clinical Summary ---
Demographics + + + | Address | [address] | | | [place] [address] | + + + | Home Phone [...] [place], [place] | | | | | [phone] | | + + + + + Care Team Providers + +------+ + | Care Community Relations Liaison Name | Role | Phone | + +------+ + | Nico Conchita RUIZ | PP | | + +------+ + Source Comments [facility]UB[facility] both [facility] and [facility] InPatient.[facility] Allergies Not on File Current [...]
--- OUTSIDE RECORDS SUMMARY | ~2017-05-13 | XMS | Clinical Summary ---
Demographics + + + | Address | [address] | | | [place] [address] | + + + | Home Phone | | + + + | Preferred Language | Unknown | + + + | Marital Status | | + + + | Tenriism Affiliation | Unknown | + + + [...] [place], [place] | | | | | [address] | | + + + + + Care Team Providers + +------+ + | Care Roll Bucker Name | Role | Phone | + +------+ + | Nico Conchita RUIZ | PP | | + +------+ + Source Comments [facility]UB[facility] both [facility] and [facility] InPatient.[facility] Allergies Not on File Current Medications [...]
--- OUTSIDE RECORDS SUMMARY | ~2017-05-13 | XMS | Clinical Summary ---
Demographics + + + | Address | [address] | | | [place] [address] | + + + | Home Phone | | + + + | Preferred Language | Unknown | + + + | Marital Status | | + + + | Protestant Affiliation | Unknown | + + + [...] [place], [place] | | | | | [phone] | | + + + + + Care Team Providers + +------+ + | Care Program Mgr Name | Role | Phone | + +------+ + | Nico Conchita RUIZ | PP | | + +------+ + Source Comments [facility] and [facility] InPatient.[facility] Allergies Not on File Current Medications Not [...]
[~2017-05-13 14:40] MED LIST changes: +CIPROFLOXACIN250 MG PO
--- NOTE | 2017-05-13 19:15 | NUR ---
michael phillips in room to place midline. pt tolerated well.
--- NOTE | 2017-05-13 19:40 | NUR ---
in room to assess pt. pt remains confused. alert to self. denies pain. pts lungs clear. on ra. pt abdomen is distened but denies pain. bowel tones hypoactive. coy cath in place. cloudy urine. pt has 1 plus edema to lower extremities.
--- NOTE | 2017-05-13 19:45 | NUR ---
LE 1830: PHONE CALL RECEIVED FROM SURG TECH REPORTING CCU NEEDED A MIDLINE IN THIS PATIENT D/T LVS AND ONLY EXISTING LINE BEING 22G AND PATIENT NEEDS BLOOD. EMR REVIEWED AND 22G IS IN RIGHT AC. LEFT UPPER ARM VENOUS ANATOMY VISUALIZED USING SITE RITE ULTRASOUND AND BASILIC VEIN IS FOUND TO BE LARGER THAN 8 CROATIAN. ATTEMPT MADE TO ACCESS VEIN IS SUCCESSFUL; HOWEVER, I AM UNABLE TO THREAD THE CATHETER INTO PLACE. THIS ATTEMPT IS DISCONTINUED. SITE RITE ULTRASOUND USED AND LEFT BRACHIAL VEIN IS FOUND TO BE LARGER THAN 8 CROATIAN. ATTEMPT TO ACCESS THIS VEIN IS SUCCESSFUL AND A MIDLINE IS PLACED WITH NO COMPLICATIONS. PATIENT TOLERATES THE ENTIRE PROCEDURE WELL. LINE IS FLUSHED EASILY W/20 ML NS AND BRIGHT RED BLOOD BRISKLY RETURNS. DRESSING IS PLACED AND VERBAL REPORT IS GIVEN AND QUESTIONS ARE ANSWERED. THIS ENTIRE PROCEDURE IS COMPLETED USING STERILE TECHNIQUE PER PROTOCOL.
--- NOTE | 2017-05-13 20:21 | NUR ---
PT SITTING UP IN BED EATING BOXED LUNCH. PT NEEDED MINIMAL ASSISTANCE WITH EATING.
--- NOTE | 2017-05-13 21:01 | NUR ---
in room to place attends on pt. irina care and cath care performed at this time. pts penis red. pt stated, "its sore down there".
--- NOTE | 2017-05-13 23:08 | NUR ---
PT RESTING IN BED. REMAINS ORIENTED TO SELF ONLY. PT FOLLOWING COMANDS. VISIBLE FROM NURSES STATION.
--- NOTE | 2017-05-13 23:40 | NUR ---
IN ROOM TO COMPLETE ASSESSMENT. PT REMAINS CONFUSED. ORIENTED TO SELF. REPOSITIONED IN BED. MINIMAL ASSISTANCE PROVIDED FROM PT WITH REPOSITIONING.
--- NOTE | 2017-05-14 01:56 | NUR ---
pt resting in bed watching tv. remains confused. oriented to self.
--- NOTE | 2017-05-14 03:18 | NUR ---
pt resting in bed with eye's closed. respirations even and unlabored. visible from nurses station.
--- NOTE | 2017-05-14 03:34 | NUR ---
in room to boost and reposition pt. pt tolerated well. visible from nurses station.
--- NOTE | 2017-05-14 06:01 | NUR ---
in room to draw lab from midline. good blood return. flushed line with 20cc ns following blood draw. pt continues to be confused. easily reoriented. pt able to follow commands.
--- NOTE | 2017-05-14 07:30 | NUR ---
BEDSIDE REPORT RECIEVED. PATIENT IS LAYING ON RIGHT SIDE IN BED. DENEIS PAIN. IVF INFUSING AT 75 ML/HR. IS NOT AWARE OF TIME, PLACE.
--- NOTE | 2017-05-14 09:15 | NUR ---
DR. CHAN HERE TO SEE PATIENT, ORDERS RECIEVED. WILL RECIEVE TWO UNITS OF PRBC'S TODAY.
--- NOTE | 2017-05-14 09:30 | NUR ---
1ST UNIT OF PRBC'S HUNG.
--- NOTE | 2017-05-14 10:30 | NUR ---
LARGE SOFT TO LIQUID STOOL ON BEDPAN. IS COOPERATIVE. IS FOLLOWING COMMANDS.
--- NOTE | 2017-05-14 13:30 | NUR ---
2ND UNIT OF PRBC'S INFUSED. TOLERATED TRANSFUSION WELL. HAS BEEN RESFUL.
--- NOTE | 2017-05-14 14:20 | NUR ---
INCONT OF EXTRA LARGE LIQUID BROWN STOOL. BED LINEN CHANGED.
--- NOTE | 2017-05-14 14:40 | NUR ---
OOB TO COMMODE WITH ASSIST. MOVING BETTER. HAD LARGE LIQUID STOOL. SAT ON COMMODE FOR APPROX 15 MIN THEN BACK TO BED.
--- NOTE | 2017-05-14 17:49 | NUR ---
MONITOR DC'D. PATIENT WILL BE TRANSFERRED TO MEDICAL FLOOR THIS EVENING. SITTING UP IN BED TO EAT DINNER.
--- NOTE | 2017-05-14 18:45 | NUR ---
RECEIVED REPORT FROM RN. PATIENT IS RESTING IN BED, BREATHING IS EVEN AND UNLABORED. NO NEEDS AT THIS TIME. CALL LIGHT WITHIN REACH.
--- NOTE | 2017-05-14 21:51 | NUR ---
PATIENT RESTING IN BED, BREATHING IS EVEN AND UNLABORED. DENIES NEEDS AT THIS TIME. ASSESSMENT DONE, MEDICATIONS GIVEN. CALL LIGHT WITHIN REACH, BED ALARM ON.
--- NOTE | 2017-05-14 23:01 | NUR ---
2 PA STANDBY ASSISTED PATIENT TO USE THE BEDSIDE COMMODE AND BACK TO BED. CALL LIGHT WITHIN REACH. NO OTHER NEEDS AT THIS TIME. BED ALARM ON.
--- NOTE | 2017-05-14 23:55 | NUR ---
PATIENT RESTING COMFORTABLY IN BED, BREATHING IS EVEN AND UNLABORED. CALL LIGHT WITHIN REACH.
--- NOTE | 2017-05-15 01:39 | NUR ---
PATIENT RESTING IN BED, BREATHING IS EVEN AND UNLABORED. DENIES NEEDS AT THIS TIME. CALL LIGHT WITHIN REACH, BED ALARM ON.
--- NOTE | 2017-05-15 03:48 | NUR ---
PATIENT RESTING COMFORTABLY IN BED, BREATHING IS EVEN AND UNLABORED ON 1L O2 VIA NC. DENIES NEEDS AT THIS TIME, DENIES PAIN. ASSESSMENT DONE. CALL LIGHT WITHIN REACH, BED ALARM ON.
--- NOTE | 2017-05-15 04:42 | NUR ---
PATIENT'S NIGHT WAS UNEVENTFUL. HE HAS BEEN RESTING OFF AND ON THROUGHOUT NIGHT. VSS, URINE OUTPUT QS. NO COMPLAINTS OF PAIN. PATIENT AFFECT IF FLAT/WITHDRAWN, CONFUSED AT TIMES. ALERT AND ORIENTED MAJORITY OF SHIFT. TRACE EDEMA IN BLE NOTED. LUNGS ARE CLEAR THROUGHOUT, O2 SATURATION >92% ON 1L O2 VIA NC. PATIENT'S BOWEL TONES ARE ACTIVE, HAS FREQUENT LOOSE STOOL. CHRONIC MADERA IN PLACE. SCLERAL JAUNDICE NOTED, BROWN DISCOLERATION OF BLE. 1PA/FWW TO COMODE. IV FLUIDS INFUSING THROUGH MIDLINE. NO ACUTE CHANGES FROM BEGINNING OF SHIFT.
--- NOTE | 2017-05-15 06:24 | NUR ---
PATIENT RESTING COMFORTABLY IN BED, BREATHING IS EVEN AND UNLABORED. CALL LIGHT WITHIN REACH, BED ALARM ON.
--- NOTE | 2017-05-15 07:30 | NUR ---
RECEIVED REPORT FROM CANOE BUILDER. PATIEENT STILL SLEEPING, RESPS REGULAR AND EVEN.
--- NOTE | 2017-05-15 07:49 | NUR ---
patient was in bed i got his breakfast order, he said he would get moving when breakfast came.
--- NOTE | 2017-05-15 08:19 | NUR ---
PATIENT AWAKE EATING BREAKFAST. PATIENT HAS TAKEN ALL AM MEDS. PATIENT HAVING NO PAIN. BLOOD SUGAR WITHIN PARAMETERS, NO INSULIN GIVEN.
--- NOTE | 2017-05-15 08:48 | NUR ---
DID PATIENT'S BLOOD SUGAR CHECK NOW IS UP EATING HIS BREAKFAST IN BED.
--- NOTE | 2017-05-15 09:06 | NUR ---
IKEEINT WAS IN BED, HE HAD FINISHED HIS BREKAFAST, HE ASKED FOR THE BED TO BE PUT DOWN(MEANING THE LEGS OF THE BED) AND THAT HE DIDNT NEED ANYTHING ELSE. I DID PATIENTS VS AND INPUT AND OUTPUT. HE WILL PUSH THE CALL LIGHT IF HE NEEDS ANYTHING ELSE.
--- NOTE | 2017-05-15 09:30 | NUR ---
PATIENT FINISHED BREAKFAST AND IS ONCE AGAIN SLEEPING, EYES CLOSED, RESPS EVEN. SCD'S ON.
--- NOTE | 2017-05-15 11:30 | NUR ---
PATIENT RESTING QUIETLY WATCHING TV. PATIENT SAYS HE IS HAVING NO PAIN AND HAS NO CONCERNS AT THIS TIME.
--- NOTE | 2017-05-15 12:29 | NUR ---
PATIENT SITTING UP IN CHAIR, USED CALL LIGHT. STANDBY ASSIST TO BED, EMPTIED FOLLEY. IN ROOM. CALL LIGHT IN REACH. NO OTHER NEEDS.
--- NOTE | 2017-05-15 13:30 | NUR ---
PATIENT CONTINUES TO SIT AND WATCH TV. PER PHYSICAL THERAPY PATIENT TAKES VERY TINY STEPS, IS VERY UNSTEADY AND CANNOT WALK BACKWORDS AT ALL.
--- NOTE | 2017-05-15 13:59 | NUR ---
PATIENT RELAXING IN BED, EYES CLOSED. VITALS AND I/O'S DONE. FRESH ICE WATER GOVEN. CALL LIGHT IN REACH. NO OTHER NEEDS.
--- NOTE | 2017-05-15 15:35 | NUR ---
PATIENT STILL HAS NO QUESTIONS AND IS JUST LAYING IN BED WATCHING MOVIES. MADERA BAG CHANGED VIA STERILE TECHNIQUE PER 'S REQUEST DUE TO THE OLDER TUBING AND COLLECTION BAGS APPEARANCE.
--- NOTE | 2017-05-15 18:09 | NUR ---
PATIENT LAYING IN BED WATCHING TV. IN ROOM. VITALS,I/O'S DONE GARBAGE EMPTIED. FOLLEY EMPTIED. PATIENTS ASKED WHY HIS FOLLEY WAS CHANGED TODAY, THIS LIFE SCIENTIST TOLD HER I WOULD ASK BETH MACK. CALL LIGHT IN REACH, NO OTHER NEEDS.
--- NOTE | 2017-05-15 18:36 | NUR ---
PATIENT IS VERY UNSTEADY ON HIS FEET AND WAS UP TO THE CHAIR ONCE TODAY WITH PT. PATIENT HAS SPENT MOST OF THE DAY IN BED WATCHING TV OR ON HIS PHONE. FLAT AFFECT, BUT ALERT AND ORIENTED. LEFT UPPER ARM MIDLINE OF D5LR AT 75MLS/HR RUNNING WELL AND 22G RAC IV FLUSHES WELL. HAS WANTED THE PATIENT TO HAVE AT LEAST 3 BOWEL MOVEMENTS TODAY AND PT HAS HAD LACTULOSE ORDERED Q2HRS UNTIL HE HAS 3 STOOLS THEN THE LACTULOSE ORDER WILL CHANGE. PATIENT HAS JUST NOW HAD A BOWEL MOVEMENT I WAS GOING TO GET HIM A SUPPOSITORY.
--- NOTE | 2017-05-15 20:30 | NUR ---
TWO PERSON ASSIST UP TO BSC, LG LIQUID BROWN STOOL. INC OF STOOL ALSO IN ATTENDS. GOOD SKIN CARE GIVEN, ASSISTED BACK TO BED . CALL LIGHT IN EASY REACH. AND SON AT BEDSIDE VISITING.
--- NOTE | 2017-05-15 23:21 | NUR ---
INC OF LARGE AMOUNT OF LOOSE BROWN STOOL, LINENS CHANGE AND GOODSKIN CARE, PT STATES HE IS COMFORTABLE, MADERA PATENT WITH YELLOW URINE, IVF INFUSING. IS GOING HOME FOR THE EVENING. CALL LIGHT IN EASY REACH.
--- NOTE | 2017-05-16 00:13 | NUR ---
Pt used call light "this came out of my mouth or my nose stated". Pt noted to have 1 1/2 in thick red mucus. Nares examined with q tip, clear, no nasal drainage noted. motuh care done and noted to have a 1/8 in piece of red thick mucus. Sample to be sent to lab. Primary RN to be notified and she will notify Dr in am. Pt denies sob, no cough noted dueinr this interaction
--- NOTE | 2017-05-16 00:32 | NUR ---
SPOKE WITH DR CHAN RE: TISSUE APPEARING MUSOUS PT COUGHED UP. FEELS IT IS FROM RECENT BLOODY NOSE AND NO NEED TO SEND TO LAB.
--- NOTE | 2017-05-16 02:35 | NUR ---
ONE PERSON ASSIST UP TO BSC. SMALL LOOSE BROWN STOOL, MADERA PATENT WITH YELLOW URINE, PT STATES HE IS COMFORTABLE, BACK TO BED AND POSITIONED WITH PILLOWS FOR COMFORT. CALL LIGHT IN EASY REACH. IVF PATENT.
--- NOTE | 2017-05-16 04:00 | NUR ---
RESTING QUIETLY ON BED, RESP EVEN AND UNLABORED. IVF PATENT , CALL LIGHT IN EASY REACH.
--- NOTE | 2017-05-16 08:45 | NUR ---
MORNING ASSESSMENT DUE. PT SITTING UP IN BED EATING BREAKFAST. PT DENIES PAIN AND NAUSEA. PT FRIENDLY BUT DISORIENTED TO PLACE, AND DATE. ASSESSMENT DONE. MEDICATIONS GIVEN (SEE MAR). WOUND CARE PERFORMED WITH 2ND RN ASSIST. PT HAS THE FOLLOWING SKIN WOUNDS: 1. LEFT FOOT - REDDEDNED AREA, BLANCHABLE 2. LEFT AND RIGTH SHINS - SCABS. 3. ABDOMEN - SCAR 4. BUTTOX - BILATERAL ULCERS STAGE 1, BLEEDING NONBLANCHABLE REDDENED AREA BETWEEN BUTTOX 5. SCROTAL AREA AND PENUS - NONBLANCHABLE REDDENESS. 6. RIGHT HAND - LARGE BRUISE FROM PREVIOUS IV START. 7. LEFT WRIST - ABRASIONS 8 GENERALIZED REDENED RASH. THIS RN PREFORMED SKIN CARE AND DRESSING CHANGES. ZINC OXIDE APPLIED TO BUTTOX. NYSTATIN APPLIED TO SCRTOAL CREVICES. DEPENDS IN PLACE. NO ALLEVYN AT THIS TIME R/T PLAN FOR PT TO SHOWER LATER THIS MORNING. WARM BLANKETS PROVIDED FOR PT. PT REPOSITIONED. PT RESTING WITH EYES CLOSED. RR 20 BPM. BED RAILS UP. CALL LIGHT WITHIN REACH.
--- NOTE | 2017-05-16 08:46 | NUR ---
PATIENT UP TO CHAIR WITH 1 PERSON ASSIST WITH FWW. HANDS AND FACE WASHED. PATIENT WOULD LIKE TO SHOWER AND BRUSH TEETH AFTER BREAKFAST. CALL BUTTON IN REACH. FRESH ICE WATER GIVEN. LINENS CHANGED. NO OTHER NEEDS AT THIS TIME.
--- NOTE | 2017-05-16 09:30 | NUR ---
PT UP IN CHAIR FINISHING BREAKFAST. PATIENT ORIENTED EXCEPT FOR DATE. PATIENT STATES "IM MUCH BETTER". PATIENT WISHES TO RETURN HOME AT DISCHARGE. PATIENT STILL HAS HOME HEALTH SERVICES AND WOULD LIKE TO CONTINUE WITH THAT. STATES HIS WILL BE IN LATER TODAY. NO QUESTIONS AT THIS TIME.
--- NOTE | 2017-05-16 09:40 | NUR ---
MORNING MEDS DUE. PT UP TO CHAIR EATING BREAKFAST. PT ORIENTED X4 AT THIS TIME. MORNING ASSESSMENT DONE. MEDICAITONS GIVEN (SEE MAR). PICC LINE SALINE LOCKED FOR AMBULATION WITH PHYSICAL THERAPY. PT WORKING WITH PHYSICIAL THERAPY. NO REQUESTS OR COMPLAINTS AT THIS TIME.
--- NOTE | 2017-05-16 10:39 | NUR ---
NEW ORDER FOR LACTULOSE. PT UP TO CHAIR AND TALKING ON PHONE. PT STATES "DOCTOR IS GOING TO TALK TO THE PHYSICAL THERAPIST AND SEE IF I CAN GO HOME TODAY." MEDICAITON GIVEN ORDERED (SEE MAR). PT WATCHING TV. NO REQUESTS OR COMPLAINTS AT THIS TIME.
--- NOTE | 2017-05-16 11:25 | NUR ---
RT IN ROOM WITH PATIENT. PATIENT SITTING UP IN CHAIR. CALL BUTTON IN REACH. FRESH ICE WATER GIVEN. NO NEEDS AT THIS TIME.
--- NOTE | 2017-05-16 12:48 | NUR ---
PT WELCOMED ME INTO HIS RM. SITTING IN CHAIR, PT ALERT AND ORIENTED. SEEMED PLEASANT, MENTIONED HE FELT HE WAS DOING MUCH BETTER-SLEPT WELL DURING THE NIGHT. PT PREFERS TO BE CALLED "BUD". WILL FOLLOW NEEDED
[2017-05-16] MEDS ORDERED: SULFAMETHOXAZO1 EAC1 PO (12:55)
[2017-05-16] MEDS ORDERED: CONSTULOSE10 GM/15 M PO (12:57)
--- NOTE | 2017-05-16 13:29 | NUR ---
PATIENT UP TO SHOWER WITH ONE PERSON ASSIST WITH FWW. PATIENT SITTING DOWN ON SHOWER CHAIR. IN ROOM PATIENT HAS CALL CORD IN REACH.
--- NOTE | 2017-05-16 13:48 | NUR ---
PT DRESSED AND READY FOR DISCHARGE. PHARMACIST AT BEDSIDE REVIEWING MEDICAITONS WITH PT AND . PT AND VERBALIZE UNDERSTANDING. LACTULOSE GIVEN ORDERED (SEE MAR). THIS RN REVIEWS DISCHARGE INSTRUCTIONS WITH PT AND . PT AND VERBALIZE UNDERSTANDING AND STATE THEIR QUESTIONS HAVE BEEN ANSWERED. VITALS TAKEN. PIV AND MID LINE DC'D. PT BELONGINGS COLLECTED.
--- NOTE | 2017-05-16 14:20 | NUR ---
PT WHEELED FROM MED/SURG AT 1410. PT STATES HE NO QUESTIONS OR CONCERNS AND THAT HE UNDERSTANDS ALL INSTRUCTIONS. PTS TO ACCOMPANY HOME AND ASSIST NEEDED. HOME HEALTH TO FOLLOW UP WITH HOME CARE.
== END 2017-05-16 14:10 | disposition home or self-care (01) | DRG 698 ==
LOC: ED 14:40 → CCU 17:35 → MS 05-14 19:14
PROVIDERS: ADMIT Internal Medicine
PROC: 30233N1 Transfusion of Nonautologous Red Blood Cells into Peripheral Vein, Percutaneous Approach (ICD-10-PCS; principal; 2017-05-13)
PROC: 05H633Z Insertion of Infusion Device into Left Subclavian Vein, Percutaneous Approach (ICD-10-PCS; 2017-05-13)
DX: T83.511A Infection and inflammatory reaction due to indwelling urethral catheter, initial encounter (principal); K72.00 Acute and subacute hepatic failure without coma; K76.6 Portal hypertension; J96.11 Chronic respiratory failure with hypoxia; D62 Acute posthemorrhagic anemia; D61.818 Other pancytopenia; N39.0 Urinary tract infection, site not specified; B95.62 Methicillin resistant Staphylococcus aureus infection as the cause of diseases classified elsewhere; Y84.6 Urinary catheterization as the cause of abnormal reaction of the patient, or of later complication, without mention of misadventure at the time of the procedure; D73.1 Hypersplenism; K74.60 Unspecified cirrhosis of liver; J44.9 Chronic obstructive pulmonary disease, unspecified; N40.1 Benign prostatic hyperplasia with lower urinary tract symptoms; R33.8 Other retention of urine; K21.9 Gastro-esophageal reflux disease without esophagitis; F10.21 Alcohol dependence, in remission; F39 Unspecified mood [affective] disorder; G89.4 Chronic pain syndrome; E11.9 Type 2 diabetes mellitus without complications; Z79.4 Long term (current) use of insulin; Z99.81 Dependence on supplemental oxygen
CPT/HCPCS: 36415; 36430; 36569; 80053; 81001; 82140; 83735; 85025; 86703; 86706; 86803; 86850; 86900; 86901; 86920; 87077; 87088; 87186; 87340; 94640; 97116; 97163; 97530; C1751; J2405; J3475; J7120; P9016

== ENCOUNTER 2017-05-27 18:01 | Observation (INO) | payer MEDICARE, OTHER ==
[~2017-05-27] VITALS: Ht 195.6 cm; Wt 143.0 kg
--- OUTSIDE RECORDS SUMMARY | ~2017-05-27 | XMS | Clinical Summary ---
Demographics + + + | Address | [address] | | | [place] [address] | + + + | Home Phone | | + + + | Preferred Language | Unknown | + + + | Marital Status | | + + + | Jain Affiliation | Unknown | + + + [...] [place], [place] | | | | | [address] | | + + + + + Care Team Providers + +------+ + | Care Trumpet Player Name | Role | Phone | + +------+ + | Nico Conchita RUIZ | PP | | + +------+ + Source Comments [facility] is fully live on both [facility] and [facility] InPatient.[facility] Allergies Not on File Current [...]
[~2017-05-27 18:01] MED LIST changes: +SULFAMETHOXAZO1 EAC1 PO
--- OUTSIDE RECORDS SUMMARY | 2017-05-27 19:11 | XMS | Clinical Summary ---
Demographics + + + | Address | [address] | | | [place] [address] | + + + | Home Phone | | + + + | Preferred Language | Unknown | + + + | Marital Status | | + + + | Mormonism Affiliation | Unknown | + + + | Race | White | + + + | Ethnic Group | Not or | + + + Author + + + | Author | [facility] | + + + | Organization | [facility] | + + + | Address | Unknown | + + + | Phone | Unavailable | + + + Support + + + + + | Name | Relationship | Address | Phone | + + + + + | Hannah Ha | ECON | [address] | | | | | [place], [place] | | | | | [address] | | + + + + + Care Team Providers + +------+ + | Care Death Claim Clerk Name | Role | Phone | + +------+ + | Nico Conchita RUIZ | PP | | + +------+ + Source Comments [facility] is fully live on both [facility] and [facility] InPatient.[facility] Allergies Not on File Current Medications Not on file Active Problems Not on file Social History + +-------+ +--------+------+ | Tobacco Use | Types | Packs/Day | Years | Date | | | | | Used | | + +-------+ +--------+------+ | Never Assessed | | | | | + +-------+ +--------+------+ + + + | Sex Assigned at | Date Recorded | | | | + + + | Not on file | | + + + Plan of Treatment + + + + + | Health Maintenance | Due Date | Last Done | Comments | + + + + + | INFLUENZA VACCINE | Completed | 12/24/2016 | | | (FLU SHOT) | | | | + + + + + Results Not on filefrom Last 3 Months"
--- OUTSIDE RECORDS SUMMARY | 2017-05-27 19:11 | XMS | Clinical Summary ---
Demographics + + + | Address | [address] | | | [place] [address] | + + + | Home Phone | | + + + | Preferred Language | Unknown | + + + | Marital Status | | + + + | Yazidism Affiliation | Unknown | + + + [...] [place], [place] | | | | | [phone] | | + + + + + Care Team Providers + +------+ + | Care Piping Drafter Name | Role | Phone | + +------+ + | Nico Conchita RUIZ | PP | | + +------+ + Source Comments [facility] is fully live on both [facility] and [facility] InPatient.[facility] Allergies Not on File Current Medications Not [...]
--- NOTE | 2017-05-27 22:15 | NUR ---
PT ARRIVED ON FLOOR AT 2014. PT IS ONLY ORIENTED TO SELF AT THIS TIME. SBP UPON ARRIVAL TO MS FLOOR WAS 99, MD CHAN IS AWARE. OTHERWISE V/S ARE WDL, ALL LOBES ARE CLEAR. PT IS JAUNDICE ON SKIN AND EYES. PT HAS +1 EDEMA IN BILATERAL LOWER LEGS, ANKLES AND FEET. ABD SOUNDS ARE PRESENT. NEW MADERA HAS BEEN PLACED. PT IS IN BED SLEEPING AT THIS TIME.
--- NOTE | 2017-05-28 | NUR ---
PT IS SLEEPING. WILL WAKE HIM UP FOR LACTULOSE DOSE. NO BM YET.
--- NOTE | 2017-05-28 02:41 | NUR ---
BP WAS 90/60, MD CHAN WAS CALLED. WILL CONTINUE TO MONITOR.
--- NOTE | 2017-05-28 04:10 | NUR ---
PT ALMOST REFUSED LACTULOSE AT 0400. NO BM SO FAR. PT ONLY ORIENTED TO SELF AND SOMEWHAT CIRCUMSTANCE. ALL LOBES ARE CLEAR. URINE OUTPUT IS ADEQUATE SO FAR. ABD SOUNDS ARE PRESENT AND ABD IS SOFT TO TOUCH AND NON-TENDER. NO CHANGE IN STATUS FOR THIS PT SINCE ARRIVAL ON THIS UNIT.
--- NOTE | 2017-05-28 05:36 | NUR ---
SBP SO FAR HAVE REMAINED FROM 90-99 THIS SHIFT. MD CHAN IS AWARE. OTHERWISE V/S HAVE BEEN WDL. PT SO FAR HAS BEEN ORIENTED TO SELF AND CIRCUMSTANCE AT TIMES. PT RECEIVED LACTULOSE PO SCHEDULED Q 2 HRS, NO BM SO FAR. URINE OUTPUT SO FAR IS WDL. NEW MADERA WAS INSERTED UPON ARRIVAL TO FLOOR. PT IS COOPERATIVE OVERALL, PT HAS BEEN SLEEPING MOST OF THE NIGHT. PT HAS +1 BILATERAL LOWER LEG EDEMA, PEDIS PULSES ARE +1. ALL LOBES ARE CLEAR AND ABD SOUNDS ARE PRESENT.
--- NOTE | 2017-05-28 08:05 | NUR ---
REPORT RECIEVED FROM BETH URRUTIA. PT AWAKE AND SITTING ON SIDE OF BED FROM NAUSEA. ASSISTED TO LAY BACK DOWN AND TERRY TO GIVE ZOFRAN. MADERA DRAINING DARK YELLOW URINE. FLAT AFFECT. ANSWERS QUESTIONS APPROPRIATLY.
--- NOTE | 2017-05-28 09:01 | NUR ---
PT TOOK MEDICATIONS WO DIFF. INCLUDING LACTULOSE. DENIES PAIN. HAS NOT HAD BM YET. BT ACTIVE. DOES NOT FEEL THE URGE YET. REMAINS NAUSOUS.
--- NOTE | 2017-05-28 09:39 | NUR ---
PATIENT LYING IN BED, EYES CLOSED. VITALS DONE. MADERA EMPTIED. CALL LIGHTIN REACH.
--- NOTE | 2017-05-28 10:31 | NUR ---
ADMINISTERED LACTULOSE AND PLACED A WARM BLANKET. WILL WALK PT IN A WHILE.
--- NOTE | 2017-05-28 11:52 | NUR ---
PATIENT APPEARS TO BE SLEEPING. HAS EATEN FRUIT FROM BREAKFAST TRAY. CALL LIGHT IN REACH
--- NOTE | 2017-05-28 12:45 | NUR ---
PT UP TO BEDSIDE COMMODE WITH 2 PERSON ASSIST. NOT STRONG ENOUGH TO WALK PER TOUR LEADER'S. HAD VERY LARGE LOOSE STOOL. DR IN TO ASSESS PT. KEEPING ORDERS THE SAME. WILL CHANGE LACTULOSE TO QID AFTER 3RD BM. BS ASSESS, NO COVERAGE NEEDED. LUNCH IN FRONT OF PT.
--- NOTE | 2017-05-28 13:00 | NUR ---
PT VERY WEAK, STANDING NEAR SINK WHEN THIS DELIVERY SALES WORKER ENTERED ROOM. DELIVERY SALES WORKERPilar MESSER WITH PT. PT HAD A VERY LG BM. SCD ON LEFT FOOT DIRTY AND REPLACED. BM ON FLOOR AND BED. LINENS CHANGED. PT VERY QUIET AND SLOW TO RESPOND. BACK TO BED. CALL LIGHT IN REACH.
--- NOTE | 2017-05-28 14:27 | NUR ---
PATIENT LYING ON RT SIDE. VITALS AND I/OS DONE. DIETARY IN RM. CALL LIGHT IN REACH.
--- NOTE | 2017-05-28 14:55 | EKG ---
[facility] [address] [place] [address] Signed Normal sinus rhythm Normal ECG When compared with ECG of 07-FEB-2017 23:31, Sinus rhythm has replaced Junctional rhythm Nonspecific T wave abnormality, improved in Anterolateral leads Confirmed by DANN CHAN MD ([id number]) on 05/28/2017 2:55:41 PM Electronically Signed By: DANN CHAN MD 05/28/17 1455 PATIENT NAME: DALE CASEY Electrocardiogram DATE OF : 58 PHYSICIAN: DANN CHAN MD REPORT #: [id number] REPORT IS CONFIDENTIAL AND NOT TO BE RELEASED WITHOUT AUTHORIZATION
--- NOTE | 2017-05-28 15:34 | NUR ---
RT IN ROOM TO DO NEB. PT SLEEPING ON AND OFF. HAS HAD 3 BM'S. CHANGED LACTULOSE TO QID PER ORDER.
[2017-05-28] MEDS ORDERED: POTASSIUM CHLO20 ME1 PO (16:12)
--- NOTE | 2017-05-28 16:19 | NUR ---
PT LYING IN BED, RT SIDE. APPEARS TO BE SLEEPING. SANTY EMPTIED CALLLIGHT IN REACH
[2017-05-28] MEDS ORDERED: BACLOFEN20 MG PO (16:20)
--- NOTE | 2017-05-28 17:09 | NUR ---
WOKE PT FROM NAPPING FOR BS CHECK AND ENULOSE. BS DID NOT NEED COVERAGE. PT DENIES NEEDS ATT.
--- NOTE | 2017-05-28 17:41 | NUR ---
PT UP TO COMMODE FOR ANOTHER LARGE LOOSE STOOL. PIVOT TRANSFER TO BEDSIDE HE IS VERY WEAK TODAY. CHANGED BEDDING DUE TO ACCIDENT. CALL LIGHT IN REACH.
--- NOTE | 2017-05-28 18:01 | NUR ---
PATIENT SITTING UP IN BED WATCHING TV. VITALS AND I/OS DONE. PATIENT MORE AWAKE AND TALKATIVE THIS EVENING. CALL LIGHT IN REACH NO OTHER NEEDS AT THIS TIME
--- NOTE | 2017-05-28 18:14 | NUR ---
PT HAD SEVERAL LARGE LOOSE STOOLS THIS AFTERNOON. ENULOSE CHANGED TO QID. GOOD APPETITE. LUNGS CLEAR BUT DIM. BEDSIDE COMMODE DUE TO WEAKNESS.
--- NOTE | 2017-05-28 19:15 | NUR ---
RECEIVED REPORT FROM RN. PATIENT IS RESTING COMFORTABLY IN BED, BREATHING IS EVEN AND UNLABORED. DENIES NEEDS AT THIS TIME. CALL LIGHT WITHIN REACH.
--- NOTE | 2017-05-28 21:21 | NUR ---
CHANGE NURSE ROUNDING NOTE: PT AWAKE, CONTINUES TO HAVE FLAT AFFECT, COOPERATIVE WITH INSTRUCTIONS, INCONTINENT OF BOWEL FROM LACTULOSE, WEARS ATTENDS,IVF INFUSING W/O PROBLEMS, BED ALARM ON, CONTINUES ON OBSERVATION STATUS
--- NOTE | 2017-05-28 22:00 | NUR ---
PATIENT RESTING COMFORTABLY IN BED, BREATHING IS EVEN AND UNLABORED. DENIES NEEDS AT THIS TIME. CALL LIGHT WITHIN REACH.
--- NOTE | 2017-05-28 22:50 | NUR ---
PATIENT RESTING COMFORTABLY IN BED, BREATHING IS EVEN AND UNLABORED. DENIES NEEDS AT THIS TIME. ASSESSMENT DONE, MEDICATIONS GIVEN. CALL LIGHT WITHIN REACH.
--- NOTE | 2017-05-28 22:56 | NUR ---
UPDATED DR. CHAN REGARDING PATIENT'S LOW URINE OUTPUT. NO NEW ORDERS AT THIS TIME.
--- NOTE | 2017-05-28 23:47 | NUR ---
ASSISTED PATIENT TO BEDSIDE COMDOE WITH 2PA. NOW RESTING COMFORTABLY IN BED, BREATHING IS EVEN AND UNLABORED. DENIES FURTHER NEEDS AT THIS TIME. CALL LIGHT WITHIN REACH, BED ALARM ON.
--- NOTE | 2017-05-29 02:17 | NUR ---
PATIENT RESTING COMFORTABLY IN BED, BREATHING IS EVEN AND UNLABORED. DENIES NEEDS AT THIS TIME. CALL LIGHT WITHIN REACH, BED ALARM ON.
--- NOTE | 2017-05-29 03:55 | NUR ---
PATIENT RESTING COMFORTABLY IN BED, BREATHING IS EVEN AND UNLABORED. DENIES NEEDS AT THIS TIME. ASSESSMENT DONE. CALL LIGHT WITHIN REACH, BED ALARM ON.
--- NOTE | 2017-05-29 04:16 | NUR ---
PATIENT'S NIGHT WAS UNEVENTFUL. HE HAS BEEN RESTING COMFORTABLY IN BED THROUGHOUT SHIFT. VSS, NO COMPLAINTS OF PAIN. URINE OUTPUT HAS BEEN INADEQUATE THIS SHIFT. PATIENT REMIANS ALERT AND ORIENTED X4 WITH FLAT AFFECT. PATIENT CONTINUES TO HAVE +1 EDEMA IN BLE. LUNGS ARE CLEAR, SATS >90% ON ROOM AIR. BOWEL TONES ARE ACTIVE, HAD BM X1 THIS SHIFT. CHRONIC MADERA IN PLACE. PATIENT HAS GENERALIZED WEAKNESS, 2PA/FWW. IV HAS IV FLUIDS INFUSING. NO ACUTE CHANGES FROM BEGINNING OF SHIFT.
--- NOTE | 2017-05-29 07:40 | NUR ---
PATIENT IN BED WTACHING TV. BOARD UPDATED, FRESH ICE WATER. CALL LIGHT IN REACH. NO THER NEEDS ATT
--- NOTE | 2017-05-29 08:15 | NUR ---
PT SITTING UP IN RECLINER, EATING BREAKFAST. TOLERATED WELL. ATE 100% OF BREAKFAST. PT DENIED PAIN. PERSONAL SUPPLIES AND CALL LIGHT IN REACH.
--- NOTE | 2017-05-29 08:36 | NUR ---
2 person assist with other building rental superintendent- pt to chair for breakfast. Partial linen change. Pt says he slept well. Ambulation to chair with little trouble. Call light in reach.
--- NOTE | 2017-05-29 09:10 | NUR ---
2 PERSON ASSIST TO SHOWER. PT ASSISTED IN WASHING FRONT OF BODY. CLEAN GOWN AND SOCKS. CLEAN SCDS ON. BACK TO BED, BETH COREA IN ROOM TO CHECK IV SITE. ORDERED LUNCH. CALL LIGHT IN REACH. NO OTHER NEEDS.
--- NOTE | 2017-05-29 10:15 | NUR ---
DR. CHAN IN TO SEE PT. DISCUSSED PALN TO FOR PT TO DISCHARGE TO HOME TODAY. PT VERBALIZED UNDERSTANDING. PERSONAL SUPPLIES IN REACH, IS CALL LIGHT.
[2017-05-29] MEDS ORDERED: CONSTULOSE10 GM/15 M PO (10:23)
--- NOTE | 2017-05-29 10:48 | NUR ---
PT SITTING UP IN RECLINER. DUKE, PHARMACIST IN SPEAKING WITH PT. CALL LIGHT AND PERSONAL SUPPLIES IN REACH.
--- NOTE | 2017-05-29 10:57 | NUR ---
NOTIFIED DR. CHAN THAT PT ONLY HAD 200 CC URINE OUT OF MADERA OVER PAST 4 HOURS. NO NEW ORDERS.
--- NOTE | 2017-05-29 11:22 | NUR ---
GAVE PT DISCHARGE INSTRUCTIONS. DISCUSSED CHANGE OF MEDICATION ORDER FOR LACTULOSE. PT VERBALIZED UNDERSTANDING OF INSTRUCTIONS. DENIED QUESTIONS.
--- NOTE | 2017-05-29 11:47 | NUR ---
PT SITTING UP IN RECLINER, EATING LUNCH. TOLERATING WELL. DENIED NEEDS.
== END 2017-05-29 12:06 | disposition home or self-care (01) ==
LOC: ED 18:01 → MS 18:02
PROVIDERS: ADMIT Internal Medicine
DX: K72.90 Hepatic failure, unspecified without coma (principal); K76.6 Portal hypertension; D73.1 Hypersplenism; D61.818 Other pancytopenia; E11.9 Type 2 diabetes mellitus without complications; K59.00 Constipation, unspecified; N40.0 Benign prostatic hyperplasia without lower urinary tract symptoms; J44.9 Chronic obstructive pulmonary disease, unspecified; J96.11 Chronic respiratory failure with hypoxia; I50.9 Heart failure, unspecified; Z88.1 Allergy status to other antibiotic agents; Z79.2 Long term (current) use of antibiotics; Z79.4 Long term (current) use of insulin; Z96.0 Presence of urogenital implants; Z99.81 Dependence on supplemental oxygen; Z79.899 Other long term (current) drug therapy
CPT/HCPCS: 36415; 51702; 71045; 80053; 81001; 82140; 83690; 85025; 87077; 87088; 93005; 93010; 94640; 96374; 96376; 99285; G0378; G0480; J2405; J7120

== ENCOUNTER 2017-06-14 18:16 | Emergency (ER) | payer MEDICARE, OTHER ==
[~2017-06-14] VITALS: Ht 200.7 cm; Wt 156.1 kg
--- OUTSIDE RECORDS SUMMARY | ~2017-06-14 | XMS | Clinical Summary ---
Demographics + + + | Address | [address] | | | [place] [address] | + + + | Home Phone [...] [place], [place] | | | | | [address] | | + + + + + Care Team Providers + +------+ + | Care Labor Relations Specialist Name | Role | Phone | + +------+ + | Nico Conchita RUIZ | PP | | + +------+ + Source Comments [facility] is fully [facility] and [facility] InPatient.[facility] Allergies Not on File Current Medications [...] + + + | INFLUENZA VACCINE | | 12/24/2016 | | | (FLU SHOT) | 8 | | | + + + + + Results Not on filefrom Last 3 Months"
--- OUTSIDE RECORDS SUMMARY | ~2017-06-14 | XMS | Clinical Summary ---
Demographics + + + | Address | [address] | | | [place] [address] | + + + | Home Phone | | + + + | Preferred Language | Unknown | + + + | Marital Status | | + + + | Evangelical Affiliation | Unknown | + + + [...] [place], [place] | | | | | [address] | | + + + + + Care Team Providers + +------+ + | Care Coffee Sommelier Name | Role | Phone | + +------+ + | Nico Conchita RUIZ | PP | | + +------+ + Source Comments RUBEN is fully live on both [facility] and [facility] InPatient.[facility] Allergies Not on File Current Medications Not [...]
[~2017-06-14 18:16] MED LIST changes: +POTASSIUM CHLO20 ME1 PO
== END 2017-06-14 22:50 | disposition home or self-care (01) ==
LOC: ED 18:16
DX: S20.212A Contusion of left front wall of thorax, initial encounter (principal); S80.02XA Contusion of left knee, initial encounter; S80.01XA Contusion of right knee, initial encounter; S50.812A Abrasion of left forearm, initial encounter; K76.9 Liver disease, unspecified; D64.9 Anemia, unspecified; I50.9 Heart failure, unspecified; J44.9 Chronic obstructive pulmonary disease, unspecified; E11.9 Type 2 diabetes mellitus without complications; Z88.1 Allergy status to other antibiotic agents; Z79.2 Long term (current) use of antibiotics; Z79.4 Long term (current) use of insulin; Z79.899 Other long term (current) drug therapy; W01.198A Fall on same level from slipping, tripping and stumbling with subsequent striking against other object, initial encounter
CPT/HCPCS: 36415; 71045; 73560; 74177; 80053; 85025; 86850; 86900; 86901; 86920; 90471; 90715; 99284; Q9967

== ENCOUNTER 2017-07-12 16:50 | Emergency (ER) | payer MEDICARE, OTHER ==
[~2017-07-12] VITALS: Ht 200.7 cm; Wt 156.2 kg
[2017-07-12] MEDS ORDERED: DUTASTERIDE-TA1 EACH PO (17:06)
== END 2017-07-12 19:46 | disposition short-term general hospital (02) ==
LOC: ED 16:50
DX: K92.2 Gastrointestinal hemorrhage, unspecified (principal); K72.90 Hepatic failure, unspecified without coma; E11.9 Type 2 diabetes mellitus without complications; I50.9 Heart failure, unspecified; J44.9 Chronic obstructive pulmonary disease, unspecified; Z88.1 Allergy status to other antibiotic agents; Z79.4 Long term (current) use of insulin; Z79.899 Other long term (current) drug therapy
CPT/HCPCS: 36415; 80053; 82140; 85025; 85610; 86850; 86900; 86901; 96374; 99285

== ENCOUNTER 2017-07-24 13:56 | Observation (INO) | payer MEDICARE, OTHER ==
[~2017-07-24] VITALS: Ht 200.7 cm; Wt 156.2 kg
[~2017-07-24 13:56] MED LIST changes: +DUTASTERIDE-TA1 EACH PO
[2017-07-24] MEDS ORDERED: DULOXETINE HCL60 MG PO (15:36)
[2017-07-24] MEDS ORDERED: CONSTULOSE10 GM/15 M PO (15:40)
[2017-07-24] MEDS ORDERED: PROPRANOLOL HCL10 MG PO (15:41)
[2017-07-24] MEDS ORDERED: TRAZODONE HCL50 MG PO (15:41)
[2017-07-24] MEDS ORDERED: HYDROMORPHONE HC2 MG PO (15:41)
--- NOTE | 2017-07-24 17:50 | NUR ---
PT ARRIVED FORM ED. FULL ASSIST WITH SLIDER SHEET TO TRANSFER TO HOSPITAL BED. PT ORIENTED TO SELF ONLY. VERY SLOW TO RESPOND TO QUESTIONS AND EITHER DOESN'T ANSWER OR ANSWERS INAPPROPRIATELY. DENIES PAIN OR OTHER CONCERNS. IV IN LEFT HAND INFUSING WNL. MADERA IN PLACE PUTTING OUT DARK YELLOW URINE. SCROTAL AREA NEAR INSERTION SITE OF MADERA SLIGHTLY REDDENED, BARRIER CREAM APPLIED. HEEL PROTECTORS IN PLACE. SKIN GROSSLY INTACT. SMALL SUPERFICIAL ABRASION NOTED ON LEFT AND RIGHT KNEE CAP. PT SATTING 98% ON RA, DENIES DIFFICULTY BREATHING.
--- NOTE | 2017-07-24 19:05 | NUR ---
pt resting in bed, eyes closed, resp even and unlabored.
--- NOTE | 2017-07-24 20:26 | NUR ---
TURNED, REGINALDO CARE DONE, F/C PATENT, DRAINING DARK YELLOW URINE, RED R UPPER SCROTUM AREA. RED BUTTOCKS, BARRIER CREAR APPLIED. BRUIDING OVER R AMD FROM PREVIOUS IVS. EDEMA LEGS, NON VERBAL, COOPERATIVE WITH ASSESSMENT
--- NOTE | 2017-07-24 21:31 | EKG ---
[facility] [address] [place] [address] Signed Normal sinus rhythm Abnormal ECG When compared with ECG of 27-MAY-2017 18:20, No significant change was found Confirmed by DANN CHAN MD ([id number]) on 07/24/2017 9:30:48 PM Electronically Signed By: DANN CHAN MD 07/24/[id number] PATIENT NAME: DALE CASEY Electrocardiogram DATE OF : 58 PHYSICIAN: DANN CHAN MD REPORT #: [id number] REPORT IS CONFIDENTIAL AND NOT TO BE RELEASED WITHOUT AUTHORIZATION
--- NOTE | 2017-07-25 00:42 | NUR ---
PT AWAKEN EASILY, NO BM, CONTINUES ON LACTULOSE Q2H REGIMEN. NO C/O PAIN, CALM, F/C PATENT, IVF INFUSING W/O PROBLEMS
--- NOTE | 2017-07-25 03:03 | NUR ---
ALVIN BRANDT CNA AND I CLEANED UP PATIENT HAD BOWEL MOVEMENT.
--- NOTE | 2017-07-25 05:55 | NUR ---
PT CONTINUES TO HAVE FLAT AFFECT, HAS BEEN INCONTINENT OF BOWEL X2, CLEANSED SKIN CARED ONE, RED AREA BETWEEN BOTTUCKS, BARRIER CREAM APPLIED. dR Dillon NOTIFIED LAST NIGHT ABOUT. NEW ORDERS RECEIVED FOR CALAMINE AND HIMANSHU OXIDE OINTMENTS. pT COOPERATIVE WITH ASSESSMENT AND PROCEDURES. hAS CHRONIC F/C IN PLACE, DRAINING DARK YELLOW/ORANGE COLORED URINE. RED AREAS TOP OF RIGHT SCROTUM AREA PRESENT. BRUISING NOTED OVER L ARM, DUSKY COLORED LOWER EXTREMITIES, DISTANT PULSES. cONTINUES ON Q2H LACTULOSE REGIMEN, IVF INFUSING W/O PROBLEMS. TREVER LIFT
--- NOTE | 2017-07-25 06:23 | NUR ---
PT HAS BEEN CLEANSED 2 MORE TIMES DUE TO LARGE BOWEL INCONTINENCE X2. SKIN CARE DONE, BARRIER CREAM TO BUTTOCKS APPLIED, BED LINEN CHANGE DONE X2. CONTINUES TO BE ON Q2H LACTULOSE REGIMEN, MORE AWAKE AT THIS TIME, ASNWERED APPROPRIATELY ALTHOUGH SLOW TO RESPOND TO QUESTIONS GIVEN TO HIM BY THIS RN. COOPERATIVE WITH TURNING
--- NOTE | 2017-07-25 08:00 | NUR ---
PT IN BED AWAKE, TAKING SIPS OF CLEARS INDPENDENTLY. PT SLOW TO RESPOND BUT RESPONDING MORE APPROPRIATELY TODAY, ORIENTED TO SELF. DENIES PAIN OR OTHER CONCERNS. MADERA PATENT, PUTTING OUT ZACH URINE. IV INFUSING WNL. CALL LIGHT WITHIN REACH.
--- NOTE | 2017-07-25 09:20 | NUR ---
BETH PATTERSON AND SONIA HERNANDEZ IN ROOM WITH PATIENT AT THIS TIME.
--- NOTE | 2017-07-25 09:28 | NUR ---
PT INCONTINENT, COPIOUS AMOUNT OF GREEN LIQUID STOOL. PT CLEANED, LINENS CHANGED, PT REPOSITIONED. PT TURNED WELL WITH MINIMAL ASSIST. CALAMINE AND DESITIN APPLIED TO BUTTOCKS. CALL LIGHT WITHIN REACH.
--- NOTE | 2017-07-25 10:44 | NUR ---
PATIENT RESTING IN BED WITH HIS EYES CLOSED. THIS FACTORY REPRESENTATIVE GAVE THE PATIENT A WASH CLOTH FOR HIS HANDS AND FACE. THE PATIENT STARTED TO WASH HIS HANDS THEN APEARED TO BE FALLING ASLEEP. THIS FACTORY REPRESENTATIVE WASHED THE PATIENTS FACE AND ASKED IF I COULD ASSIST BRUSHING HIS TEETH THE PATIENT STATED "NO. NOT RIGHT NOW." THIS FACTORY REPRESENTATIVE TOLD THE PATIENT THAT I WILL CHECK IN A LITTLE LATER AND ASSIST HIM WITH SHAVING ALSO. NO OTHER NEEDS AT THIS TIME. CALL BUTTON IN REACH. FRESH ICE WATER GIVEN.
--- NOTE | 2017-07-25 11:05 | NUR ---
PPT RESTING IN BED WITH EYES CLOSED, RESP EVEN AND UNLABORED. AT BEDSIDE, DENIES NEEDS OR CONCERNS AT THIS TIME.
[2017-07-25] MEDS ORDERED: NARCAN4 MG PO (11:14)
--- NOTE | 2017-07-25 12:52 | NUR ---
PATIENT HAD SMALL BOWEL INCONTINENCE. THIS GARBAGE WORKER AND RN JAROCHO ASSISTED TO CHANGE PATIENT'S BRIEF, SKINCARE, PERICARE, AND CATH CARE PERFORMED. PATIENT READJUSTED IN BED. CALL LIGHT IN REACH. NO OTHER NEEDS AT THIS TIME.
--- NOTE | 2017-07-25 13:32 | NUR ---
PT SLEEPING UPON ENTERING ROOM. AWOKE EASILY TO VOICE. TOOK SCHEDULED LACTULOSE WITHOUT DIFFICULTY, SIPS OF WATER. MENTATION CONT TO IMPROVE. PT ORIENTED TO SELF, LOCATION, AND DATE. CALL LIGHT WITHIN REACH.
--- NOTE | 2017-07-25 13:43 | NUR ---
Ketan WORKING WITH PTTasha
--- NOTE | 2017-07-25 13:47 | NUR ---
PT RESTING IN BED, LAYING ON RIGHT SIDE. HE RESPONDED TO MY VOICE. PT SEEMED TO RESPOND IN VERY BRIEF ANSWERS, SOMETIMES ONE WORD. HE DENIES BEING IN ANY PAIN. EXTENDED BLESSING, WILL FOLLOW NEEDED
--- NOTE | 2017-07-25 15:04 | NUR ---
PT IN BED VISITING WITH . DENIES NEEDS OR CONCERNS AT THIS TIME. CALL LIGHT WITHIN REACH.
--- NOTE | 2017-07-25 15:37 | NUR ---
REGINALDO CARE AND CATH CARE DONE BY THIS SAFETY DEPOSIT BOXES CUSTODIAN. LINENS CHANGED. THIS SAFETY DEPOSIT BOXES CUSTODIAN SHAVED PATIENT'S FACE. PATIENT BRUSHING HIS TEETH. LOTION APPLIED TO PATIENTS SKIN. PATIENT CONTINUOSLY ASKS ABOUT GOING HOME. CALL BUTTON IN REACH. FRESH ICE WATER GIVEN. WARM BLANKET GIVEN. NO OTHER NEEDS AT THIS TIME.
--- NOTE | 2017-07-25 17:10 | NUR ---
PT EATING DINNER INDEPENDENTLY. MADERA PATENT. DENIES PAIN OR OTHER CONCERNS. AT BEDSIDE.
--- NOTE | 2017-07-25 18:01 | NUR ---
SPOKE WITH PATIENTS AND PATIENT IN ROOM. SHE STATES SHE PLANS ON HIS RETURNING HOME, STATES HE IS AT HIS BASELINE AND DR CHAN WILL DISCHARGE HIM TOMORROW. SHE STATES THEY HAVE ALL SUPPLIES. SHE IS AGREEABLE TO HAVE HOME HEALTH RESUME. NO FURTHER QUESTIONS AT THIS TIME.
--- NOTE | 2017-07-25 18:14 | NUR ---
PATIENT RESTING IN BED WATCHING TV. CALL BUTTON IN REACH. FRESH ICE WATER GIVEN. NO OTHER NEEDS AT THIS TIME.
--- NOTE | 2017-07-25 19:30 | NUR ---
REPORT RECEIVED FROM DAY SHIFT NURSE. PATIENT RESTING IN BED WATCHING TV. PATIENT DENIES ANY NEEDS AT THIS TIME. CALL LIGHT WITHIN REACH.
--- NOTE | 2017-07-25 21:20 | NUR ---
ASSESSMENT COMPLETED. PATIENT RESTING IN BED WATCHING TV. MEDICATIONS GIVEN PER ORDER. BARRIER CREAM APPLIED. MADERA IN PLACE, DRAINING ZACH URINE QS. FRESH ICE WATER GIVEN. PATIENT ASSISTED WITH REPOSITIONING. PATIENT DENIES ANY OTHER NEEDS AT THIS TIME. CALL LIGHT WITHIN REACH. VITAL SIGNS AND I&Os RECORDED.
--- NOTE | 2017-07-25 23:46 | NUR ---
PATIENT RESTING IN BED PLAYING ON PHONE. PATIENT DENIES ANY NEEDS AT THIS TIME. CALL LIGHT WITHIN REACH. RR 16.
--- NOTE | 2017-07-26 00:18 | NUR ---
PATIENT USED CALL LIGHT AND REQUESTED ATTENDS CHANGED. PATIENT HAD A SMALL LOOSE STOOL. DESITIN APPLIED. MADERA IN PLACE, DRAINING ZACH URINE. PATIENT STATES TROUBLE SLEEPING. WARM BLANKET OFFERED, PATIENT DENIES AT THIS TIME. PATIENT REPOSITIONED SELF IN BED. PATIENT DENIES ANY OTHER NEEDS AT THIS TIME. WILL CONTINUE TO MONITOR. CALL LIGHT WITHIN REACH. PATIENT DENIES PAIN.
--- NOTE | 2017-07-26 01:20 | NUR ---
PATIENT USED CALL LIGHT AND REQUESTED ASSISTANCE TO THE RESTROOM. PATIENT OFFERED BED DUNAWAY, PATIENT REFUSED. PATIENT 2PA WITH FWW. PATIENT GAIT WEAK AND UNSTEADY. PATIENT HAD LARGE LOOSE STOOL. DESITIN APPLIED, NO OPEN AREAS ON BUTTOCKS. MADERA IN PLACE, DRAINING ZACH URINE. PATIENT STATES NO PAIN WITH AMBULATION. NO SOB WITH AMBULATION NOTED. PATIENT ASSISTED BACK TO BED. PATIENT TOLERATED AMBULATION WELL. HEEL PROTECTORS IN PLACE. PATIENT REPOSITIONS SELF WITH THE USE OF THE TRAPEZE. PATIENT DENIES ANY OTHER NEEDS AT THIS TIME. CALL LIGHT WITHIN REACH.
--- NOTE | 2017-07-26 02:49 | NUR ---
PATIENT RESTING IN BED WITH EYES CLOSED. RR 16. BREATHING UNLABORED AND EVEN. CALL LIGHT WITHIN REACH.
--- NOTE | 2017-07-26 05:02 | NUR ---
PATIENT RESTED ON AND OFF THROUGHOUT THE NIGHT. PATIENTS IV SL. ADA DIET, 2000 CALORIE. PATIENT ON RA. MADERA IN PLACE, DRAINING ZACH COLORED URINE QS. HEEL PROTECTORS IN PLACE. PATIENT HAS A WEAK AND UNSTEADY GAIT. UP TO RESTROOM X1. PATIENT 2PA WITH FWW. DENIES PAIN. LARGE LOOSE STOOL X1. PT EVAL TODAY. REDDEND AREA BETWEEN BUTTOCKS, BARRIER CREAM APPLIED.
--- NOTE | 2017-07-26 06:16 | NUR ---
PATIENTS VITAL SIGNS AND I&Os RECORDED. PATIENT RESTING IN BED WATCHING TV. REGINALDO CARE PROVIDED. DESITIN APPLIED. PATIENT DENIES PAIN. FRESH WATER GIVEN. PATIENT DENIES ANY OTHER NEEDS AT THIS TIME. CALL LIGHT WITHIN REACH. HEEL PROTECTORS ON. ASSESSMENT COMPLETED.
--- NOTE | 2017-07-26 07:25 | NUR ---
BEDSIDE HANDOFF REPORT RECEIVED FROM FISHERIES INSPECTOR RN. PT RESTING IN BED. PT DENIES NEEDS AT THIS TIME.
--- NOTE | 2017-07-26 08:25 | NUR ---
PT RESTING IN BED, EATING BREAKFAST. PT BLOOD GLUCOSE 98, SS NOVOLOG HELD. PT ALERT/ORIENTED. PT ON ROOM AIR, LUNG SOUNDS CLEAR, DIMINIHSED BASES. PT TOLERATING ADA DIET, BOWEL TONES ACTIVE, DENIES NAUSEA. CMS INTACT, TRACE EDEMA TO BLE, PULSES PALPABLE. PT WITH MADERA CATH, DRAINING ORANGE URINE. DISCUSSED PLAN OF CARE FOR THE DAY, PLAN TO DISCHARGE AFTER PHYSICAL THERAPY. PT DENIES OTHER NEEDS AT THIS TIME.
[2017-07-26] MEDS ORDERED: ONDANSETRON ODT8 MG PO (09:33)
--- NOTE | 2017-07-26 10:21 | NUR ---
PATIENT SITTING UP IN CHAIR. MADERA DRAINED. VITALS AND I&Os DONE. CALL LIGHT WITHIN REACH. NO OTHER NEEDS AT THIS TIME.
--- NOTE | 2017-07-26 11:10 | NUR ---
PT SITTING IN CHAIR, GREETED ME AND EVEN SMILED. HE STATED HE WAS HEADED HOME TODAY, AND IS READY. PLEASANT CONVERSATION, BUT BRIEF. EXTENDED A BLESSING, WILL FOLLOW NEEDED
--- NOTE | 2017-07-26 11:14 | NUR ---
PATIENT SITTING UPRIGHT IN BEDROOM CHAIR, NOTIFIED PATIENT OF UNKNOWN DISCHARGE TIME, LUNCH ORDERED PER PATIENT'S REQUEST, PATIENT WITH NO FURTHER QUESTIONS AT THIS TIME.
[2017-07-26] MEDS ORDERED: TRAZODONE HCL50 MG PO (12:40)
== END 2017-07-26 13:35 | disposition home or self-care (01) ==
LOC: ED 13:56 → MS 13:57
PROVIDERS: ADMIT Internal Medicine
DX: K71.10 Toxic liver disease with hepatic necrosis, without coma (principal); T40.2X5A Adverse effect of other opioids, initial encounter; K74.60 Unspecified cirrhosis of liver; K76.6 Portal hypertension; I85.10 Secondary esophageal varices without bleeding; D61.818 Other pancytopenia; I50.9 Heart failure, unspecified; J96.11 Chronic respiratory failure with hypoxia; J44.9 Chronic obstructive pulmonary disease, unspecified; N40.0 Benign prostatic hyperplasia without lower urinary tract symptoms; E11.9 Type 2 diabetes mellitus without complications; K21.9 Gastro-esophageal reflux disease without esophagitis; G89.4 Chronic pain syndrome; Z88.1 Allergy status to other antibiotic agents; Z79.2 Long term (current) use of antibiotics; Z99.81 Dependence on supplemental oxygen; Z22.39 Carrier of other specified bacterial diseases; Z79.4 Long term (current) use of insulin; Z79.899 Other long term (current) drug therapy
CPT/HCPCS: 36415; 51702; 71045; 80053; 81001; 82140; 85025; 87077; 87088; 87186; 93005; 93010; 94640; 96360; 96361; 97116; 97163; 99285; G0378; G8978; G8979; G8980; J7120

== ENCOUNTER 2017-08-02 10:50 | Emergency (ER) | payer MEDICARE, OTHER ==
[~2017-08-02] VITALS: Ht 200.7 cm; Wt 166.1 kg
[~2017-08-02 10:50] MED LIST changes: +DULOXETINE HCL60 MG PO; +HYDROMORPHONE HC2 MG PO; +NARCAN4 MG PO; +ONDANSETRON ODT8 MG PO; +TRAZODONE HCL50 MG PO
== END 2017-08-02 13:23 | disposition home or self-care (01) ==
LOC: ED 10:50
PROC: 0T9B70Z Drainage of Bladder with Drainage Device, Via Natural or Artificial Opening (ICD-10-PCS; principal; 2017-08-02)
DX: R31.9 Hematuria, unspecified (principal); K72.90 Hepatic failure, unspecified without coma; N40.0 Benign prostatic hyperplasia without lower urinary tract symptoms; J44.9 Chronic obstructive pulmonary disease, unspecified; E11.9 Type 2 diabetes mellitus without complications; I50.9 Heart failure, unspecified; Z88.1 Allergy status to other antibiotic agents; Z79.899 Other long term (current) drug therapy
CPT/HCPCS: 51702; 80053; 81001; 82140; 85025; 99283

== ENCOUNTER 2017-08-14 12:38 | Emergency (ER) | payer MEDICARE, OTHER ==
[~2017-08-14] VITALS: Ht 200.7 cm; Wt 166.1 kg
[2017-08-14] MEDS ORDERED: AVODART0.5 MG PO (13:17)
[2017-08-14] MEDS ORDERED: LEVAQUIN750 MG PO (14:27)
--- NOTE | 2017-08-14 21:56 | EKG ---
[facility] [address] [facility] [place] [address] Signed Normal sinus rhythm Nonspecific T wave abnormality Abnormal ECG When compared with ECG of 24-JUL-2017 13:59, No significant change was found Confirmed by DANN CHAN MD ([id number]) on 08/14/2017 9:56:34 PM Electronically Signed By: DANN CHAN MD 08/14/17 2156 PATIENT NAME: DALE CASEY Electrocardiogram DATE OF : 58 PHYSICIAN: DANN CHAN MD REPORT #: [id number] REPORT IS CONFIDENTIAL AND NOT TO BE RELEASED WITHOUT AUTHORIZATION
== END 2017-08-14 14:40 | disposition home or self-care (01) ==
LOC: ED 12:38
DX: J40 Bronchitis, not specified as acute or chronic (principal); L03.116 Cellulitis of left lower limb; L03.115 Cellulitis of right lower limb; K74.60 Unspecified cirrhosis of liver; I50.9 Heart failure, unspecified; E11.9 Type 2 diabetes mellitus without complications; Z88.1 Allergy status to other antibiotic agents; Z79.899 Other long term (current) drug therapy
CPT/HCPCS: 71045; 80053; 83690; 84484; 85025; 93005; 93010; 94640; 99284

== ENCOUNTER 2017-08-23 16:49 | Emergency (ER) | payer MEDICARE, OTHER ==
[~2017-08-23] VITALS: Ht 200.7 cm; Wt 166.1 kg
[~2017-08-23 16:49] MED LIST changes: +AVODART0.5 MG PO; +LEVAQUIN750 MG PO
[2017-08-23] MEDS ORDERED: XIFAXAN550 MG PO (17:29)
== END 2017-08-23 20:02 | disposition home or self-care (01) ==
LOC: ED 16:49
DX: K72.90 Hepatic failure, unspecified without coma (principal); K71.51 Toxic liver disease with chronic active hepatitis with ascites; E11.9 Type 2 diabetes mellitus without complications; I50.9 Heart failure, unspecified; Z88.1 Allergy status to other antibiotic agents; Z79.899 Other long term (current) drug therapy
CPT/HCPCS: 71045; 80053; 82140; 83605; 83880; 85025; 96374; 99284

== ENCOUNTER 2017-09-02 20:59 | Inpatient (IN) | payer MEDICARE, OTHER ==
[~2017-09-02] VITALS: Ht 200.7 cm; Wt 172.5 kg
[2017-09-02] MEDS ORDERED: LASIX40 MG PO (21:11)
--- NOTE | 2017-09-02 23:53 | NUR ---
PT HAS CHRONIC MADERA, REPORTS HAVING CHANGED BY HOME HEALTH ON 08/31/17 SOMETIME AFTER 1200
--- NOTE | 2017-09-03 00:53 | NUR ---
PT ARRIVED TO ROOM 129 AT 2345. UNABLE TO TRANSFER SELF TO BED. 3 PERSON MAX ASSISTED TRANSFER. PT AWAKE, SOMEWHAT SLOW TO ANSWER QUESTIONS AND FORGETFUL. DISORIENTED TO DAY/MONTH/YEAR AND PLACE. MADERA CARE DONE. PT WITH RED SCROTUM, FOUL SMELLING, AND WITH WHITE CHUNKS. REPOSITIONED PT TO R SIDE. O2 ON 2L NC. ABD SEVERELY DISTENDED AND TIGHT. LE DISCOLORED BELOW KNEES WITH ULCER APPROXIMATELY 3CM IN DIAMETER ON L GARCIA.
--- NOTE | 2017-09-03 06:04 | NUR ---
PT AWAKENS, BUT REMAINS LETHARGIC AND DROWSY. SLOW TO RESPOND. DENIES NEEDS.
--- NOTE | 2017-09-03 08:33 | NUR ---
PT CALLED FOR STAFF, HE WANTED WARM BLANKETS AND HIS BLANKETS PULLED UP INTO HIM. TWO WARM BLANKETS GIVEN AT THIS TIME.
--- NOTE | 2017-09-03 08:53 | NUR ---
PT C/O OF NOT BEING ABLE TO BREATH, PT WAS LYING FLATE IN BED WHEN STAFF WENT INTO THE ROOM. SPO2 WAS 94%, HEAD OF THE BED ELEVATED AT THIS TIME. PT THEN REQUESTED BKF, STAFF ORDER BKF FOR HIM AT THIS TIME.
--- NOTE | 2017-09-03 09:32 | NUR ---
DR BETTENCOURT INTO SEE PT THIS AM. PT WAS ABLE TO EAT HIS BKF AND FEED HIMSELF. PT TAKE PO MEDS WELL AND IS TALKING WITH DR BETTENCOURT. PT STATES "I WANT TO GO HOME, WHAT DOES THE DOCTOR SAY?" DR BETTENCOURT AT BEDSIDE AND WAS TALKING WITH PT.
--- NOTE | 2017-09-03 10:12 | NUR ---
PT GIVEN COMPLETE BED BATH AT THIS TIME, PT ABLE TO HELP STAFF WITH TURNING AND POSITIONING SELF. CATH CARE COMPLETED.
--- NOTE | 2017-09-03 10:48 | NUR ---
PT APPEARS TO BE SLEEPING AT THIS TIME. SPO2 96% ON ROOM AIR.
--- NOTE | 2017-09-03 12:16 | NUR ---
PT UP TO THE CHAIR AT THIS TIME WITH THE CEILING LIFT. PHYSICAL THERAPY INTO HELP ALSO AT THIS TIME.
--- NOTE | 2017-09-03 12:49 | NUR ---
PT ATE HIS LUNCH AND TOLERATED WELL SO FAR THIS AFTERNOON. HE REMAINS UP IN THE CHAIR, REPOSITIONED IN THE CHAIR, NOW HAS HIS FEET ON THE GROUND AND SITTING IN A MORE UPRIGHT POSITIONS. CALL LIGHT WITHIN REACH.
--- NOTE | 2017-09-03 13:31 | NUR ---
THIS RN RESUMING CARE OF THIS PATIENT. PATIENT HELPED BACK TO BED WITH 2 PERSON ASSIST FROM CHAIR TO BED. PATIENT MOVED FAIRLY WELL THIS TIME, AND PER REPORT HE HAD TO USE THE GREEN SHEET TO GET UP INTO CHAIR EARLIER. PT ASKED ORIENTATION QUESTIONS AND ORIENTED TO SELF, BUT NOT DATE. PT IS ORIENTED TO SEASON AFTER LOOKING OUTSIDE. PT DENIES FURTHER NEEDS AT THIS TIME. PT HAS LACTULOSE DUE AT THIS TIME. CONTINUE TO MONITOR.
--- NOTE | 2017-09-03 13:36 | NUR ---
PATIENT IS WITNESSED ASKING NURSING TO TRANSFER BACK TO BED VIA STANDING. TRANSFER PERFORMED WITH PT AND HIS NURSE WITH SIT TO STAND AND STAND PIVOT TRANSFER WITH MODERATE ASSIST X 2. PATIENT STATES THAT HE NEVER FALLS IN THIS SESSION.
--- NOTE | 2017-09-03 13:44 | NUR ---
MADERA EMPTIED AT THIS TIME. PT ASKING ABOUT A BREATHING TREATMENT AND RT CALLED. PT HAS PRN BREATHING TREATMENTS ON HIS EMAR. BED ALARM ON FOR SAFETY. PT STATES HE DOES FEEL SHORT OF BREATH. CONTINUE TO MONITOR.
--- NOTE | 2017-09-03 15:26 | NUR ---
PATIENT REQUESTING TO BE SHAVED. HELPED PATIENT WITH THIS AND TOLERATED WELL. PT ALSO HAD BEEN UP TO [facility] AND HAD A LARGE, LIQUID, FOUL SMELLING BM. PT'S SIGNIFICANT OTHER IN ROOM AT THIS TIME. PT LOOKING OVER DINNER MENU NOW. OVERALL, PT STATES HE IS FEELING MUCH BETTER.
--- NOTE | 2017-09-03 19:31 | NUR ---
PT UP TO BSC TO HAVE LARGE SOFT STOOL. REQUESTED TO SIT UP TO CHAIR. CALL LIGHT IN REACH. PT EXPLAINED TO CALL FOR ALL NEEDS AND ASSISTANCE. VERBALIZED UNDERSTANDING. REPORTS ONLY PAIN HE HAS IS WHERE HIS ABD WAS TAPPED ON RUQ. PAIN WHEN HE STANDS UP ONLY.
--- NOTE | 2017-09-03 20:07 | NUR ---
PT UP TO BSC TO HAVE LARGE SEMI-LIQUID STOOL. APPLIED LOTION TO PT LOWER EXTREMITIES PER REQUEST.
--- NOTE | 2017-09-03 21:50 | NUR ---
PT TRANSFERRED FROM ICU TO ROOM 122 VIA BED. PT ORIENTED TO ROOM AND HOSP PROCEDURES, COOPERATIVE. ALERT AND ORIENTED, SKIN YELLOW, DRY, ABD LARGE AND ASCITIC, SL INPLACE INTACT. EDEMATOUS SCROTUM AREA, F/C PATENT, DRAINING YELLOW URINE. EDEMATOUS 2+ LEGS CALVES TO FEET BILAT, ELEVATED. CALL LIGHT ITHING ARMS REACH, BED ALARM ON
--- NOTE | 2017-09-03 22:02 | NUR ---
2149 - PT TRANSFERRED FROM ICU TO ROOM 122. PT ORIENTED TO ROOM AND HOSP PROCEDURE. O2 AT 3L NC AT HIS REQUESTS "I USE O2 AT HS'. ABD VERY LARGE ASCITIC, EDEMA 2+ ANKLES/FEET AND MID CALVES BILAT, ELEVATED. CHRONIC F/C PATENT, DRAINING YELLOW URINE. BED ALRM ON.
--- NOTE | 2017-09-03 22:15 | NUR ---
O2 3L ON AT PTS REQUESTS " I WEAR O2 AT NIGHT ONLY". UP TO BSC WITH 2 PERSON ASSIST, NO BM, LOTIONS TO REGINALDO AREA APPLIED DUE TO RESNESS, SKIN INTACT. BACK TO BED, CALL LIGHT AND FLUIDS WITHING REACH
--- NOTE | 2017-09-03 23:44 | NUR ---
PATIENT C/O STATLOCK ON LEFT LATERAL THIGH IS BOTHERSOME. RN KOTA NOTIFIED. THIS MECHANICAL SYSTEMS DESIGNER REMOVED THE STATLOCK ON LEFT AND PUT NEW ONE ON RIGHT ANTERIOR THIGH.
--- NOTE | 2017-09-04 00:10 | NUR ---
UP TO EDGE OF BED, LEGS DANGLING, AFTER 10 MINUTES PT USED CALL LIGHT TO GET BACK TO BED, O2 3L NC IN PLACE, F/C PATENT
--- NOTE | 2017-09-04 03:00 | NUR ---
PT UP TO BSC, NO BM, BACK TO EDGE OF BED, DANLGED FEET FOR A FEW MINUTES, THEN BACK TO BED. LEGS ELEVATED. O2 3L NC IN PLACE, NO C/O PAIN.
--- NOTE | 2017-09-04 06:18 | NUR ---
PT TRANSFERED FROM [facility]U LAST NIGHT. PT SLEPT WELL AFTER TRANSFER. NO REPORTS OF PAIN, NAUSEA, OR SOB. DAILY WEIGHT. O2 @ 3LPM, CHRONIC @ HS. LUNG SOUNDS DIM. EDEMA 2+ TO BLE'S. ASCITES, JAUNDICE. CHRONIC MADERA CATH, UO QS. IV SL. 2G SODIUM RESTRICTION. 2[place] TO [facility] [place].
--- NOTE | 2017-09-04 06:21 | NUR ---
SITTING UP ON EDGE OF BED, FEET DANGLING, ABLE TO REPOSITION SELF, NO C/O PAIN OR SOB. F/C PATENT DRAINING LIGHT ZACH COLORED URINE, NOBM THIS SHIFT. TOLERATING FLUIDS WELL, ON ROOM AIR
--- NOTE | 2017-09-04 08:31 | NUR ---
patient up in chair, eating breakfast
--- NOTE | 2017-09-04 09:24 | NUR ---
DR. BETTENCOURT IN TO SEE PT, DISCUSSING PLAN FOR DISCHARGE, AND ASSESSING PT. PT STATED THAT HE "FEELS BETTER".
[2017-09-04] MEDS ORDERED: CIPROFLOXACIN500 MG PO (09:30)
--- NOTE | 2017-09-04 10:39 | NUR ---
PATIENT HAS DISCHARGE ORDERS IN THIS MORNING. HE WILL NOT BE SEEN BY PT. HE IS LIKELY AT BASELINE MOBILITY LIMITED BY HIS MEDICAL CONDITIONS. HE WOULD BENEFTI FROM HOME HEALTH PHYSICAL THERAPY TO ADDRESS SAFETY WITH TRANSFERS IN/OUT OF WHEELCHAIR AND BED AND CAREGIVING TRAINING WITH POSSIBLE ASSESSMENT FOR A LIFT IN HOME.
--- NOTE | 2017-09-04 10:42 | NUR ---
GAVE DISCHARGE INSTRUCTIONS TO PT AND PT'S . QUESTIONS ASKED AND ANSWERED, PT AND PT'S VERBALIZED UNDERSTANDING. PT'S REPORTED THAT PT'S MEDICATION LIST FROM HOME CAME TO THE HOSPITAL WITH EMS, AND THAT THE MEDICATION LIST WAS IN THE EMERGENCY DEPARTMENT WHEN PT WAS SEEN THERE. ATTEMPTED TO LOCATEE THIS LIST. LIST NOT IN PT'S CHART. CONTACTED CCU, WHERE PT HAD BEEN UNTIL TRANSFER TO FLOOR YESTERDAY, SPOKE WITH BETH CARRENO, WHO STATED THAT THERE WERE NO RECORDS OR PT'S PAPERS LOCATED ON CCU. CALLED EMERGENCY DEPARTMENT, SPOKE WITH ED STAFF, WHO STATED THAT IF SUCH A LIST HAD BEEN LEFT IN EMERGENCY DEPARTMENT, THE LIST WOULD HAVE BEEN SENT TO MEDICAL RECORDS. ALSO CONTACTED ARYAN, PHARMACIST, ASKED IF HE HAD A RECORD OF RECIEVING A HOME MEDICATION LIST, OR IF THE LIST WAS IN PHARMACY. ARYAN STATED THAT HE HAD NO SUCH LIST, AND HAD NO RECORD OF SUCH A LIST BEING FAXED TO PHARMACY. NOTIFIED PT AND PT'S OF ABOVE NOTED. PROVIDED PT AND PT'S WITH EDUCATION, ADVISED THEM THAT HAVING AT LEAST 2 COPIES OF CURRENT MEDICATION LIST IS CONVENIENT, AND THAT MANY PEOPLE PLACE ONE COPY OF A MEDICATION LIST ON THE REFRIDGERATOR, AND ONE COPY IN PURSE OR WALLET.
== END 2017-09-04 10:45 | disposition home or self-care (01) | DRG 442 ==
LOC: ED 20:59 → CCU 22:59 → MS 09-03 21:50
PROVIDERS: ADMIT Internal Medicine
DX: K72.00 Acute and subacute hepatic failure without coma (principal); D61.818 Other pancytopenia; R18.8 Other ascites; J96.11 Chronic respiratory failure with hypoxia; Z68.42 Body mass index [BMI] 45.0-49.9, adult; K70.9 Alcoholic liver disease, unspecified; F10.21 Alcohol dependence, in remission; R53.1 Weakness; J44.9 Chronic obstructive pulmonary disease, unspecified; G89.4 Chronic pain syndrome; N18.9 Chronic kidney disease, unspecified; K21.9 Gastro-esophageal reflux disease without esophagitis; N40.0 Benign prostatic hyperplasia without lower urinary tract symptoms; E66.9 Obesity, unspecified; Z99.81 Dependence on supplemental oxygen; Z87.891 Personal history of nicotine dependence; Z88.1 Allergy status to other antibiotic agents; Z88.5 Allergy status to narcotic agent; Z79.2 Long term (current) use of antibiotics; Z79.899 Other long term (current) drug therapy
CPT/HCPCS: 36415; 71045; 80048; 80053; 81001; 82140; 83735; 85025; 85610; 85730; 94640; 97163; P9047

== ENCOUNTER 2017-10-19 22:19 | Emergency (ER) | payer MEDICARE, OTHER ==
[~2017-10-19] VITALS: Ht 200.7 cm; Wt 204.3 kg
[~2017-10-19 22:19] MED LIST changes: +CIPROFLOXACIN500 MG PO; +LASIX40 MG PO
[2017-10-20] MEDS ORDERED: SPIRONOLACTONE100 MG PO (00:03)
[2017-10-20] MEDS ORDERED: LASIX40 MG PO (00:03)
--- NOTE | 2017-10-20 12:41 | EKG ---
[facility] [address] [facility] [place] [address] Signed Normal sinus rhythm Low voltage QRS Nonspecific T wave abnormality Abnormal ECG When compared with ECG of 14-AUG-2017 12:44, No significant change was found Confirmed by DANN CHAN MD ([id number]) on 10/20/2017 12:40:59 PM Electronically Signed By: DANN CHAN MD 10/20/17 1241 PATIENT NAME: DALE CASEY Electrocardiogram DATE OF : 58 PHYSICIAN: DANN CHAN MD REPORT #: [id number] REPORT IS CONFIDENTIAL AND NOT TO BE RELEASED WITHOUT AUTHORIZATION
== END 2017-10-20 00:25 | disposition home or self-care (01) ==
LOC: ED 22:19
DX: R07.9 Chest pain, unspecified (principal); R60.1 Generalized edema; K72.90 Hepatic failure, unspecified without coma; I50.9 Heart failure, unspecified; J44.9 Chronic obstructive pulmonary disease, unspecified; E11.9 Type 2 diabetes mellitus without complications; Z88.1 Allergy status to other antibiotic agents; Z88.5 Allergy status to narcotic agent; Z79.899 Other long term (current) drug therapy; Z79.2 Long term (current) use of antibiotics
CPT/HCPCS: 71045; 80053; 84484; 85025; 85610; 85730; 93005; 93010; 96374; 96375; 99285; J2270; J2405

== ENCOUNTER 2017-11-01 10:42 | Inpatient (IN) | payer MEDICARE, OTHER ==
[~2017-11-01] VITALS: Ht 200.7 cm; Wt 204.3 kg
--- OUTSIDE RECORDS SUMMARY | ~2017-11-01 | XMS | Clinical Summary ---
Demographics + + + | Address | [address] | | | [place] [address] | + + + | Home Phone | | + + + | Preferred Language | Unknown | + + + | Marital Status | | + + + | Bahai Affiliation | Unknown | + + + | Race | Unknown | + + + | Ethnic Group | Unknown | + + + Author + + + | Author | [facility] | | | and [place] | + + + | Organization | [facility] | | | and [...] Team Providers + +------+ + | Care Aeronautical Engineering Professor Name | Role | Phone | + [...] + + + | DM (diabetes mellitus) ([facility]) | 02/08/2017 | + + + | Heart failure ([facility]) | 02/08/2017 | + + + | [...] + | 11/21/ | Office | | [facility], | | | 2017 | Visit | | [facility] [address] | | | | | | [address] | | | | | | [place] | | | | | | [address] | | | | | | | [...] + + | Colorectal Cancer | | 07/15/2017 | | | Screening | 8 [...] +--------+ + + + | EXTERNAL LAB: GERTRUDE | Routin | 08/23/2017 | | Results [...] + + + | EXTERNAL LAB: [facility] GILES | Routin | 08/23/2017 | | Results [...] + +---------+ + + External Lab: BUN (10/19/2017)Only the most recent of 3 results [...] recent of 3 results within the time aneudy faust is included. + +-------+ + + | [...] +--------+ +---------+ | MEDICARE | MEDICA | [id number] | Medica | [phone] | | | | RE | | re | [phone] | | | | PART A | | | | | | | AND B | | | | | + +--------+ +--------+ +---------+ | MEDICAID [place] | MEDICA | [id number] | Medica | [phone] | | | | ID [place] | [...] | + +--------+ +--------+ + + | DALE HA | Person | Self | [birth year] | Home: | [address] | | | al/Fam | | 1961 | [phone] | [place] | | | [place] | | | [phone] | + +--------+ +--------+ + +"
--- OUTSIDE RECORDS SUMMARY | ~2017-11-01 | XMS | Encounter Summary ---
Demographics + + + | Address | [address] | | | [place] [address] | + + + | Home Phone | | + + + | Preferred Language | Unknown | + + + | Marital Status | | + + + | Congregation Affiliation | Unknown | + + + | Race | Unknown | + + + | Ethnic Group | Unknown | + + + Author + + + | Author | [facility] | | | and [place] | + + + | Organization | [facility] | | | and [place] [...] Team Providers + +------+ + | Care Trapeze Artist Name | Role | Phone | + [...] | | | | [address] | [place] [address] | | | | | [address] | | | | | | [phone] | | | +--------+ + + + [...] | 11/21/ | Office | Gastroenterology | [facility], | | | 2018 | Visit | | [facility] [address] | | | | | | [address] | | | | | | [place] | | | | | | [address] | | | | | | | [...]
[~2017-11-01 10:42] MED LIST changes: -ANORO ELLIPTA1 EACH INH; +SPIRONOLACTONE100 MG PO
[2017-11-01] MEDS ORDERED: CITALOPRAM HBR10 MG PO (11:00)
[2017-11-01] MEDS ORDERED: PROPRANOLOL HCL10 MG PO (11:02)
[2017-11-01] MEDS ORDERED: NORCO 7.5-3251 EACH PO (11:02)
[2017-11-01] MEDS ORDERED: NARCAN4 MG (11:04)
--- OUTSIDE RECORDS SUMMARY | 2017-11-01 11:21 | XMS | Encounter Summary ---
Demographics + + + | Address | [address] | | | [place] [address] | + + + | Home Phone | | + + + | Preferred Language | Unknown | + + + | Marital Status | | + + + | Yarsanism Affiliation | Unknown | + + + | Race | Unknown | + + + | Ethnic Group | Unknown | + + + Author + + + | Author | [facility] | | | and [place] | + + + | Organization | [facility] | | | and [place] | + + + | Address | Unknown | + + + | Phone | Unavailable | + + + Support + + +---------+ + | Name | Relationship | Address | Phone | + + +---------+ + | CHACHA HA | ECON | Unknown | | + + +---------+ + | Nico Harper | ECON | Unknown | | + + +---------+ + Care Team Providers + +------+ + | Care Finished Goods Planner Name | Role | Phone | + +------+ + | No Physician | PCP | Unavailable | + +------+ + Encounter Details +--------+ + + + + | Date | Type | Department | Care Team | Description | +--------+ + + + + | 11/01/ | Abstract | [facility] | Provider, | | | 2017 | | GASTROENTEROLOGY | MD [address] | | | | | [address] [place] | [place]. | | | | | [address] [place] | [place] [address] | | | | | [address] | | | | | | [phone] | | | +--------+ + + + + Social History + +-------+ +--------+------+ | Tobacco Use | Types | Packs/Day | Years | Date | | | | | Used | | + +-------+ +--------+------+ | Never Smoker | | | | | + +-------+ +--------+------+ + +---+---+---+ | Smokeless Tobacco: | | | | | Never Used | | | | + +---+---+---+ + + +---------+ + | Alcohol Use | Drinks/We | oz/Week | Comments | | | ek | | | + + +---------+ + | Yes | | | | + + +---------+ + + + + | Sex Assigned at | Date Recorded | | | | + + + | Not on file | | + + + as of this encounter Plan of Treatment +--------+---------+ + + + | Date | Type | Specialty | Care Team | Description | +--------+---------+ + + + | 11/21/ | Office | Gastroenterology | [facility], | | | 2018 | Visit | | [facility] [address] | | | | | | [address] | | | | | | [place] | | | | | | [address] | | | | | | | | +--------+---------+ + + + as of this encounter Procedures + +--------+ + + + | Procedure Name | Priori | Date/Time | Associated Diagnosis | Comments | | | ty | | | | + +--------+ + + + | EXTERNAL LAB: BUN | Routin | 08/23/2017 | | Results for this | | | e | 0000 PDT | | procedure are in the | | | | | | results section. | + +--------+ + + + | EXTERNAL LAB: | Routin | 08/23/2017 | | Results for this | | GLUCOSE | e | 0000 PDT | | procedure are in the | | | | | | results section. | + +--------+ + + + | EXTERNAL LAB: ALT | Routin | 08/23/2017 | | Results for this | | | e | 0000 PDT | | procedure are in the | | | | | | results section. | + +--------+ + + + | EXTERNAL LAB: AST | Routin | 08/23/2017 | | Results for this | | | e | 0000 PDT | | procedure are in the | | | | | | results section. | + +--------+ + + + | EXTERNAL LAB: | Routin | 08/23/2017 | | Results for this | | ALKALINE PHOSPHATASE | e | 0000 PDT | | procedure are in the | | | | | | results section. | + +--------+ + + + | EXTERNAL LAB: | Routin | 08/23/2017 | | Results for this | | BILIRUBIN, TOTAL | e | 0000 PDT | | procedure are in the | | | | | | results section. | + +--------+ + + + | EXTERNAL LAB: | Routin | 08/23/2017 | | Results for this | | ALBUMIN | e | 0000 PDT | | procedure are in the | | | | | | results section. | + +--------+ + + + | EXTERNAL LAB: | Routin | 08/23/2017 | | Results for this | | PROTEIN, TOTAL | e | 0000 PDT | | procedure are in the | | | | | | results section. | + +--------+ + + + | EXTERNAL LAB: | Routin | 08/23/2017 | | Results for this | | CALCIUM | e | 0000 PDT | | procedure are in the | | | | | | results section. | + +--------+ + + + | EXTERNAL LAB: CARBON | Routin | 08/23/2017 | | Results for this | | DIOXIDE | e | 0000 PDT | | procedure are in the | | | | | | results section. | + +--------+ + + + | EXTERNAL LAB: | Routin | 08/23/2017 | | Results for this | | CHLORIDE | e | 0000 PDT | | procedure are in the | | | | | | results section. | + +--------+ + + + | EXTERNAL LAB: | Routin | 08/23/2017 | | Results for this | | POTASSIUM | e | 0000 PDT | | procedure are in the | | | | | | results section. | + +--------+ + + + | EXTERNAL LAB: SODIUM | Routin | 08/23/2017 | | Results for this | | | e | 0000 PDT | | procedure are in the | | | | | | results section. | + +--------+ + + + | EXTERNAL LAB: CBC | Routin | 08/23/2017 | | Results for this | | | e | 0000 PDT | | procedure are in the | | | | | | results section. | + +--------+ + + + | EXTERNAL LAB: B TYPE | Routin | 08/23/2017 | | Results for this | | NATURETIC PEPTIDE | e | 0000 PDT | | procedure are in the | | | | | | results section. | + +--------+ + + + | EXTERNAL LAB: EGFR | Routin | 08/23/2017 | | Results for this | | | e | 0000 PDT | | procedure are in the | | | | | | results section. | + +--------+ + + + | EXTERNAL LAB: | Routin | 08/23/2017 | | Results for this | | CREATININE | e | 0000 PDT | | procedure are in the | | | | | | results section. | + +--------+ + + + | CBC WITH | Routin | 08/23/2017 | | Results for this | | DIFFERENTIAL | e | 0000 PDT | | procedure are in the | | | | | | results section. | + +--------+ + + + | AMMONIA | Routin | 08/23/2017 | | Results for this | | | e | 0000 PDT | | procedure are in the | | | | | | results section. | + +--------+ + + + | COMPREHENSIVE | Routin | 08/23/2017 | | Results for this | | METABOLIC PANEL | e | 0000 PDT | | procedure are in the | | | | | | results section. | + +--------+ + + + | EXTERNAL: | Routin | 07/15/2017 | | Results for this | | COLONOSCOPY | e | 0000 PDT | | procedure are in the | | | | | | results section. | + +--------+ + + + in this encounter Results CBC with Differential (08/23/2017) + +-------+ + + | Component | Value | Ref Range | Performed At | + +-------+ + + | [facility] | 31.0 | 26.0 - 33.0 pg | | + +-------+ + + | [facility] | 32 | 30 - 36 | | + +-------+ + + | BASOPHILS % | 0.0 | 0.0 - 2.0 % | | + +-------+ + + + + | Specimen | + + | Blood | + + Ammonia (08/23/2017) + +--------+ + + | Component | Value | Ref Range | Performed At | + +--------+ + + | AMMONIA | 86 (A) | 11 - 35 umol/L | | + +--------+ + + + + | Specimen | + + | Blood | + + Comprehensive Metabolic Panel (08/23/2017) + +---------+ + + | Component | Value | Ref Range | Performed At | + +---------+ + + | ANION GAP | 9 | 7 - 21 mmol/L | | + +---------+ + + | BUN/Creatinine Ratio | 12.8 | 8 - 28.8 | | + +---------+ + + | Globulin | 4.3 (A) | 1.8 - 3.5 | | + +---------+ + + | Albumin/Globulin | 0.5 (A) | 1.1 - 2.4 | | | Ratio | | | | + +---------+ + + + + | Specimen | + + | Blood | + + External Lab: BUN (08/23/2017) + +-------+ + + | Component | Value | Ref Range | Performed At | + +-------+ + + | BUN, External | 11 | 6 - 23 | EXTERNAL LAB | + +-------+ + + + +---------+ + + | Performing | Address | City/State/Zipcode | Phone Number | | Organization | | | | + +---------+ + + | EXTERNAL LAB | | | | + +---------+ + + External Lab: Glucose (08/23/2017) + +---------+ + + | Component | Value | Ref Range | Performed At | + +---------+ + + | Glucose, External | 101 (A) | 70 - 100 | EXTERNAL LAB | + +---------+ + + + +---------+ + + | Performing | Address | City/State/Zipcode | Phone Number | | Organization | | | | + +---------+ + + | EXTERNAL LAB | | | | + +---------+ + + External Lab: ALT (08/23/2017) + +-------+ + + | Component | Value | Ref Range | Performed At | + +-------+ + + | ALT, External | 20 | 7 - 52 | EXTERNAL LAB | + +-------+ + + + +---------+ + + | Performing | Address | City/State/Zipcode | Phone Number | | Organization | | | | + +---------+ + + | EXTERNAL LAB | | | | + +---------+ + + External Lab: AST (08/23/2017) + +--------+ + + | Component | Value | Ref Range | Performed At | + +--------+ + + | AST, External | 60 (A) | 13 - 38 | EXTERNAL LAB | + +--------+ + + + +---------+ + + | Performing | Address | City/State/Zipcode | Phone Number | | Organization | | | | + +---------+ + + | EXTERNAL LAB | | | | + +---------+ + + External Lab: Alkaline Phosphatase (08/23/2017) + +-------+ + + | Component | Value | Ref Range | Performed At | + +-------+ + + | ALP, External | 120 | 31 - 120 | EXTERNAL LAB | + +-------+ + + + +---------+ + + | Performing | Address | City/State/Zipcode | Phone Number | | Organization | | | | + +---------+ + + | EXTERNAL LAB | | | | + +---------+ + + External Lab: Bilirubin, Total (08/23/2017) + +---------+ + + | Component | Value | Ref Range | Performed At | + +---------+ + + | Bilirubin, Total, | 2.1 (A) | 0 - 1.2 | EXTERNAL LAB | | External | | | | + +---------+ + + + +---------+ + + | Performing | Address | City/State/Zipcode | Phone Number | | Organization | | | | + +---------+ + + | EXTERNAL LAB | | | | + +---------+ + + External Lab: Albumin (08/23/2017) + +---------+ + + | Component | Value | Ref Range | Performed At | + +---------+ + + | Albumin, External | 2.3 (A) | 3.5 - 5 | EXTERNAL LAB | + +---------+ + + + +---------+ + + | Performing | Address | City/State/Zipcode | Phone Number | | Organization | | | | + +---------+ + + | EXTERNAL LAB | | | | + +---------+ + + External Lab: Protein, Total (08/23/2017) + +-------+ + + | Component | Value | Ref Range | Performed At | + +-------+ + + | Protein, Total, | 6.6 | 6 - 8.3 | EXTERNAL LAB | | External | | | | + +-------+ + + + +---------+ + + | Performing | Address | City/State/Zipcode | Phone Number | | Organization | | | | + +---------+ + + | EXTERNAL LAB | | | | + +---------+ + + External Lab: Calcium (08/23/2017) + +---------+ + + | Component | Value | Ref Range | Performed At | + +---------+ + + | Calcium, External | 8.3 (A) | 8.4 - 10.2 | EXTERNAL LAB | + +---------+ + + + +---------+ + + | Performing | Address | City/State/Zipcode | Phone Number | | Organization | | | | + +---------+ + + | EXTERNAL LAB | | | | + +---------+ + + External Lab: Carbon Dioxide (08/23/2017) + +-------+ + + | Component | Value | Ref Range | Performed At | + +-------+ + + | Carbon Dioxide, | 23 | 19 - 31 | EXTERNAL LAB | | External | | | | + +-------+ + + + +---------+ + + | Performing | Address | City/State/Zipcode | Phone Number | | Organization | | | | + +---------+ + + | EXTERNAL LAB | | | | + +---------+ + + External Lab: Chloride (08/23/2017) + +-------+ + + | Component | Value | Ref Range | Performed At | + +-------+ + + | Chloride, External | 103 | 95 - 112 | EXTERNAL LAB | + +-------+ + + + +---------+ + + | Performing | Address | City/State/Zipcode | Phone Number | | Organization | | | | + +---------+ + + | EXTERNAL LAB | | | | + +---------+ + + External Lab: Potassium (08/23/2017) + +---------+ + + | Component | Value | Ref Range | Performed At | + +---------+ + + | Potassium, External | 5.4 (A) | 3.6 - 5.1 | EXTERNAL LAB | + +---------+ + + + +---------+ + + | Performing | Address | City/State/Zipcode | Phone Number | | Organization | | | | + +---------+ + + | EXTERNAL LAB | | | | + +---------+ + + External Lab: Sodium (08/23/2017) + +---------+ + + | Component | Value | Ref Range | Performed At | + +---------+ + + | Sodium, External | 130 (A) | 132 - 143 | EXTERNAL LAB | + +---------+ + + + +---------+ + + | Performing | Address | City/State/Zipcode | Phone Number | | Organization | | | | + +---------+ + + | EXTERNAL LAB | | | | + +---------+ + + External Lab: CBC (08/23/2017) + + + + + | Component | Value | Ref Range | Performed At | + + + + + | WBC, External | 3.9 (A) | 4.6 - 11 | EXTERNAL LAB | + + + + + | HGB, External | 9.8 (A) | 13.6 - 18 | EXTERNAL LAB | + + + + + | HCT, External | 29.8 (A) | 41 - 50 | EXTERNAL LAB | + + + + + | PLT, External | 89 (A) | 140 - 440 | EXTERNAL LAB | + + + + + | Neutrophils %, | 48 | 39 - 80 | EXTERNAL LAB | | External | | | | + + + + + | Lymphocytes %, | 28 | 24 - 44 | EXTERNAL LAB | | External | | | | + + + + + | Monocytes %, | 15 (A) | 0 - 12 | EXTERNAL LAB | | External | | | | + + + + + | Eosinophils %, | 7 (A) | 0 - 6 | EXTERNAL LAB | | External | | | | + + + + + | RBC, External | 3.13 (A) | 4.3 - 5.7 | EXTERNAL LAB | + + + + + | MCV, External | 95 | 81 - 99 | EXTERNAL LAB | + + + + + | RDW, External | 24.1 (A) | 10.5 - 15 | EXTERNAL LAB | + + + + + + +---------+ + + | Performing | Address | City/State/Zipcode | Phone Number | | Organization | | | | + +---------+ + + | EXTERNAL LAB | | | | + +---------+ + + External Lab: B Type Naturetic Peptide (08/23/2017) + +---------+ + + | Component | Value | Ref Range | Performed At | + +---------+ + + | B-Type Naturetic | 136 (A) | 0 - 100 | EXTERNAL LAB | | Peptide, External | | | | + +---------+ + + + + | Specimen | + + | Blood | + + + +---------+ + + | Performing | Address | City/State/Zipcode | Phone Number | | Organization | | | | + +---------+ + + | EXTERNAL LAB | | | | + +---------+ + + External Lab: eGFR (08/23/2017) + +-------+ + + | Component | Value | Ref Range | Performed At | + +-------+ + + | eGFR, External | >60 | 60 - 9,999 | EXTERNAL LAB | + +-------+ + + + + | Specimen | + + | Blood | + + + +---------+ + + | Performing | Address | City/State/Zipcode | Phone Number | | Organization | | | | + +---------+ + + | EXTERNAL LAB | | | | + +---------+ + + External Lab: Creatinine (08/23/2017) + +-------+ + + | Component | Value | Ref Range | Performed At | + +-------+ + + | Creatinine, External | 0.86 | 0.7 - 1.33 | EXTERNAL LAB | + +-------+ + + + + | Specimen | + + | Blood | + + + +---------+ + + | Performing | Address | City/State/Zipcode | Phone Number | | Organization | | | | + +---------+ + + | EXTERNAL LAB | | | | + +---------+ + + EXTERNAL: COLONOSCOPY (07/15/2017) + + + + + | Component | Value | Ref Range | Performed At | + + + + + | Colonoscopy | Impression: Normal | | | | Impression, External | colonoscopy to the | | | | | proximal ascending | | | | | colon. 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 | | | | | ~Liza Merino | | | | | [place] | | | + + + + + in this encounter Visit Diagnoses Not on filein this encounter"
--- OUTSIDE RECORDS SUMMARY | 2017-11-01 11:21 | XMS | Clinical Summary ---
Demographics + + + | Address | [address] | | | [place] [address] | + + + | Home Phone | | + + + | Preferred Language | Unknown | + + + | Marital Status | | + + + | Advent Affiliation | Unknown | + + + | Race | Unknown | + + + | Ethnic Group | Unknown | + + + Author + + + | Author | [facility] | | | and [place] | + + + | Organization | [facility] | | | and [place] [...] Team Providers + +------+ + | Care Food Concession Manager Name | Role | Phone | + +------+ + | No Physician | PP | Unavailable | + +------+ + Allergies + + + + + + | Active Allergy | Reactions | Severity | Noted | Comments | | | | | Date | | + + + + + + | Cephalexin | Hives | High | 02/09/20 | | | | | | 17 | | + + + + + + | Duloxetine | | | 09/20/19 | Don't use in | | | | | 18 | patients with | | | | | | hepatic impairment | + + + + + + Current Medications + + +-------+---------+------+------+-------+ | Prescription | Sig. | Disp. | Refills | Star | End | Statu | | | | | | t | Date | s | | | | | | Date | | | + + +-------+---------+------+------+-------+ | albuterol 2.5 mg/3 | Inhale 2.5 mg into | | | 08/0 | | Activ | | mL nebulizer | the lungs 2 times | | | 10/31 | | e | | solution | daily. | | | 18 | | | + + +-------+---------+------+------+-------+ | arformoterol | Inhale 15 mcg into | | | 08/0 | | Activ | | (BROVANA) 15 MCG/2ML | the lungs 2 times | | | 10/31 | | e | | NEBU | daily. | | | 18 | | | + + +-------+---------+------+------+-------+ | citalopram | Take 10 mg by mouth | | | 05/0 | 05/0 | Activ | | (CELEXA) 10 mg | Daily. | | | 07/31 | 07/31 | e | | tablet | | | | 18 | 19 | | + + +-------+---------+------+------+-------+ | | Take 1 capsule by | | | 11/12 | | Activ | | Dutasteride-Tamsulos | mouth Daily. | | | 05/03 | | e | | in HCl 0.5-0.4 MG | | | | 17 | | | | CAPS | | | | | | | + + +-------+---------+------+------+-------+ | ferrous sulfate | Take 325 mg by mouth | | | 08/0 | | Activ | | 325 mg tablet | every morning. | | | 8/20 | | e | | | | | | 18 | | | + + +-------+---------+------+------+-------+ | furosemide (LASIX) | Take 40 mg by mouth | | | 08/0 | | Activ | | 40 mg tablet | 2 times daily. | | | 8/20 | | e | | | | | | 18 | | | + + +-------+---------+------+------+-------+ | | Take 1 tablet by | | | 08/0 | 09/0 | Activ | | HYDROcodone-acetamin | mouth every 12 | | | 8 | 20 | e | | ophen (NORCO) 10-325 | hours. | | | 18 | 18 | | | mg per tablet | | | | | | | + + +-------+---------+------+------+-------+ | lactulose 10 g/15 | Take 15 mLs by mouth | | | 09/1 | | Activ | | mL solution | 4 times daily. | | | 220 | | e | | | | | | 17 | | | + + +-------+---------+------+------+-------+ | naloxone (NARCAN) | 1 Application by | | | 08/0 | | Activ | | 4 mg/nasal spray | Nasal route. | | | 8/20 | | e | | | | | | 18 | | | + + +-------+---------+------+------+-------+ | nystatin | Apply 1 Application | | | | | Activ | | (MYCOSTATIN) powder | topically as needed. | | | | | e | + + +-------+---------+------+------+-------+ | ondansetron | Take 8 mg by mouth. | | | | | Activ | | (ZOFRAN) 8 MG tablet | | | | | | e | + + +-------+---------+------+------+-------+ | pantoprazole | Take 40 mg by mouth | | | 08/0 | | Activ | | (PROTONIX) 40 mg | Daily. | | | 8/20 | | e | | tablet | | | | 18 | | | + + +-------+---------+------+------+-------+ | potassium chloride | Take 40 mEq by mouth | | | | | Activ | | (KLOR-CON) 20 MEQ | Daily. | | | | | e | | packet | | | | | | | + + +-------+---------+------+------+-------+ | propranolol | Take 10 mg by mouth | | | 08/0 | | Activ | | (INDERAL) 10 mg | 3 times daily. | | | 8/20 | | e | | tablet | | | | 18 | | | + + +-------+---------+------+------+-------+ | rifAXIMin | Take 550 mg by mouth | | | 08/0 | | Activ | | (XIFAXAN) 550 mg | 2 times daily. | | | 8/20 | | e | | TABS | | | | 18 | | | + + +-------+---------+------+------+-------+ | spironolactone | Take 100 mg by mouth | | | | | Activ | | (ALDACTONE) 100 MG | 2 times daily. | | | | | e | | tablet | | | | | | | + + +-------+---------+------+------+-------+ | traZODone | Take 25 mg by mouth | | | 05/0 | | Activ | | (DESYREL) 50 mg | nightly. | | | 5/20 | | e | | tablet | | | | 18 | | | + + +-------+---------+------+------+-------+ | | Inhale 1 puff into | | | 08/0 | | Activ | | umeclidinium-vilante | the lungs Daily. | | | 8/20 | | e | | rol (ANORO ELLIPTA) | | | | 18 | | | | 62.5-25 mcg/puff | | | | | | | | inhaler | | | | | | | + + +-------+---------+------+------+-------+ Active Problems + + + | Problem | Noted Date | + + + | End stage liver disease (HCC) | 08/25/2017 | + + + + + | Overview: Overview: | | With ascites | + + + + + | Current severe episode of major depressive disorder without | 07/15/2017 | | psychotic features without prior episode (HCC) | | + + + | Pancytopenia (HCC) | 07/14/2017 | + + + | Acute posthemorrhagic anemia | 07/12/2017 | + + + | Alcoholic cirrhosis of liver with ascites (HCC) | 07/12/2017 | + + + | Chronic obstructive pulmonary disease (HCC) | 07/12/2017 | + + + | Portal hypertensive gastropathy (HCC) | 07/12/2017 | + + + | Urinary retention due to benign prostatic hyperplasia | 07/12/2017 | + + + | Hepatic encephalopathy (HCC) | 03/08/2017 | + + + | Chronic indwelling Case catheter | 03/03/2017 | + + + | Anasarca | 02/08/2017 | + + + | Chronic pain disorder | 02/08/2017 | + + + | CKD (chronic kidney disease) stage 3, GFR 30-59 ml/min | 02/08/2017 | + + + | DM (diabetes mellitus) ([facility]) | 02/08/2017 | + + + | Heart failure ([facility]) | 02/08/2017 | + + + | Type 2 diabetes mellitus with complication, with long-term | 02/08/2017 | | current use of insulin (HCC) | | + + + | Urinary tract infection | 02/08/2017 | + + + | Anemia in chronic kidney disease | 11/23/2016 | + + + | Benign prostatic hyperplasia | 11/23/2016 | + + + | Cirrhosis of liver with ascites (HCC) | 11/23/2016 | + + + | Diastolic heart failure (HCC) | 11/23/2016 | + + + | Morbid obesity (HCC) | 11/23/2016 | + + + | LISETH treated with BiPAP | 11/23/2016 | + + + | Type 2 diabetes mellitus with peripheral neuropathy (HCC) | 11/23/2016 | + + + Encounters +--------+ + + + + | Date | Type | Specialty | Care Team | Description | +--------+ + + + + | 11/01/ | Abstract | | Provider, | | | 2017 | | | Karen, MD | | +--------+ + + + + from Last 3 Months Immunizations + + + + | Name | Dates Previously Given | Next Due | + + + + | INFLUENZA, | 12/24/2016 | | | UNSPECIFIED | | | | FORMULATION | | | + + + + | PNEUMOCOCCAL | 08/31/2017 | | | POLYSACCHARIDE | | | | 23-VALENT (PPSV23) | | | + + + + | TDAP, (ADOL/ADULT) | 06/14/2017 | | + + + + Family History + + +------+ + | Medical History | Relation | Name | Comments | + + +------+ + | Arthritis | Father | | | + + +------+ + | Asthma | Father | | | + + +------+ + | COPD | Father | | | + + +------+ + | Cancer | Father | | | + + +------+ + | High cholesterol | Father | | | + + +------+ + | Arthritis | Mother | | | + + +------+ + | Hypertension | Mother | | | + + +------+ + | Bipolar disorder | Sister | | | + + +------+ + | Depression | Sister | | | + + +------+ + | Drug abuse | Sister | | | + + +------+ + | Mental illness | Sister | | | + + +------+ + + +------+--------+ + | Relation | Name | Status | Comments | + +------+--------+ + | Father | | | | + +------+--------+ + | Mother | | | | + +------+--------+ + | Sister | | | | + +------+--------+ + Social History + +-------+ +--------+------+ | [...] | + + + Plan of Treatment +--------+---------+ + + + | Date | Type | Specialty | Care Team | Description | +--------+---------+ + + + | 11/21/ | Office | | [facility], | | | 2017 | Visit | | [facility] [address] | | | | | | [address] | | | | | | [place] | | | | | | [id number] | | | | | | | | +--------+---------+ + + + + + + + + | Health Maintenance | Due Date | Last Done | Comments | + + + + + | Hepatitis C | | | | | Screening | 0 | | | + + + + + | Diabetic Eye Exam | | | | | (Bi-Annually) | 8 | | | + + + + + | Diabetic Foot Exam | | | | | | 8 | | | + + + + + | Hemoglobin A1c Q6 | | | | | Months | 8 | | | + + + + + | Colorectal Cancer | | | | | Screening | 0 | | | | (Colonoscopy) | | | | + + + + + | Vaccine: Influenza | | 12/24/2016 | | | (#1) | 8 | | | + + + + + | Vaccine: | | 06/14/2017 | | | Dtap/Tdap/Td (2 - | 8 | | | | Td) | | | | + + + + + | Vaccine: | Completed | 08/31/2017 | | | Pneumococcal 19-64 | | | | | (PPSV23 only) Medium | | | | | Risk | | | | + + + + + Procedures + +--------+ + + + | [...] +--------+ + + + | EXTERNAL LAB: [facility]ACK[facility] | Gerald | 08/23/2017 | | Results for this [...] +--------+ + + + | EXTERNAL LAB: DI | Routin | 08/23/2017 | | Results [...] +--------+ + + + | EXTERNAL LAB: [facility] TYPE | Routin | 08/23/2017 | | [...] | + +--------+ + + + | LABS - EXTERNAL SCAN | | 08/23/2017 | | Results for this | | | | 0000 PDT | | procedure are in the | | | | | | results section. | + +--------+ + + + from Last 3 Months Results External Lab: [facility] (08/23/2017) + +-------+ + [...] | | | + +---------+ + + LABS - EXTERNAL SCAN (08/23/2017) + + + | Narrative | Performed At | + + + | Ordered by an | | | unspecified provider. | | + + + CBC with Differential (08/23/2017) + +-------+ + [...] + + | Blood | + + from Last 3 Months Insurance + +--------+ +--------+ +---------+ | Payer | Benefi | Subscriber | Type | Phone | Address | | | t Plan | ID | | | | | | / | | | | | | | Group | | | | | + +--------+ +--------+ +---------+ | MEDICARE | MEDICA | [id number] | Medica | [phone] | | | | RE | | re | [phone] | | | | PART A | | | | | | | AND B | | | | | + +--------+ +--------+ +---------+ | [place]ID [place] | MEDICA | [id number] | Medica | [phone] | | | ID [place] | | id | [phone] | | | | PLUS | | | | | + +--------+ +--------+ +---------+ + +--------+ +--------+ + + | Guarantor Name | Accoun | Relation to | Date | Phone | Billing Address | | | t Type | Patient | of | | | | | | | | | | + +--------+ +--------+ + + | RASHI HA | Person | Self [birth year] Home: | [address] | | | [place] | | 1961 | [phone] | [place] | | | [place]una | | | [phone] | + +--------+ +--------+ + +"
--- OUTSIDE RECORDS SUMMARY | 2017-11-01 11:21 | XMS | Encounter Summary ---
Demographics + + + | Address | [address] | | | [place] [address] | + + + | Home Phone | | + + + | Preferred Language | Unknown | + + + | Marital Status | | + + + | Faith Affiliation | Unknown | + + + | Race | Unknown | + + + | Ethnic Group | Unknown | + + + Author + + + | Author | [facility] | | | and [place] | + + + | Organization | [facility] | | | and [place] | [...] Team Providers + +------+ + | Care Renewable Energy Consultant Name | Role | Phone | + [...] | | [address] | [place] [address] | | | | | [address] | | | | | | [phone] | | | +--------+ + + + [...] | 11/21/ | Office | Gastroenterology | [facility], | | | 2018 | Visit | | [facility] [address] | | | | | | [address] | | | | | | [place] | | | | | | [address] | | | | | | | [...]
--- OUTSIDE RECORDS SUMMARY | 2017-11-01 11:21 | XMS | Clinical Summary ---
Demographics + + + | Address | [address] | | | [place] [address] | + + + | Home Phone | | + + + | Preferred Language | Unknown | + + + | Marital Status | | + + + | Orthodoxy Affiliation | Unknown | + + + | Race | Unknown | + + + | Ethnic Group | Unknown | + + + Author + + + | Author | [facility] | | | and [place] | + + + | Organization | [facility] | | | and [place] [...] Team Providers + +------+ + | Care Software Systems Architect Name | Role | Phone | + [...] + + + | DM (diabetes mellitus) ([facility]) | 02/08/2017 | + + + | Heart failure ([facility]) | 02/08/2017 | + + + | [...] + | 11/21/ | Office | | [facility], | | | 2017 | Visit | | [facility] [address] | | | | | | [address] | | | | | | [place] | | | | | | [address] | | | | | | | [...] +--------+ +---------+ | MEDICARE | MEDICA | [id number] | Medica | [phone] | | | | RE | | re | [phone] | | | | PART A | | | | | | | AND B | | | | | + +--------+ +--------+ +---------+ | [place]ICAID [place] | MEDICA | [id number] | Medica | [phone] | | | [...] | Self | [birth year] | Home: | [address] | | | al/[place] | | 1961 | [phone] | [place] | | | [place] | | | [phone] | + +--------+ +--------+ + +"
--- NOTE | 2017-11-01 17:29 | NUR ---
PATIENT ADMITTED TO ROOM 129 AROUND 1615 FROM ER. PT HELPED TO MOVE OVER TO CCU BED WITH 4 PERSON ASSIST AND HOVER MAT. PATIENT IS END STAGE LIVER DISEASE. PT'S ABDOMEN IS SEVERELY DISTENDED, WHICH IS NORMAL FOR HIM, BUT THIS IS MORE SEVERE THAN NORMAL. PT HAS CHRONIC MADERA CATHETER INTACT. PT ARRIVES ON 3 L NASAL CANNULA WHICH IS ALSO CHRONIC FOR PATIENT. PLAN IS FOR PATIEN TO RECEIVE 1 UNIT OF [address]BCs AND ALSO DR. OCHAO HAS BEEN CONSULTED FOR A POTENTIAL PARACENTESIS. CHEST XRAY AND EKG DONE HERE IN CCU. 1ST UNIT OF BLOOD TO BE STARTED NOW.
--- NOTE | 2017-11-01 17:45 | NUR ---
1 UNIT OF PRBCs STARTED AT 1740. PT TOLERATING WELL THUS FAR. IV IN RIGHT AC WORKING WELL. CONTINUE TO MONITOR. PT MORE COMFORTABLE LAYING ON RIGHT SIDE OR LEFT SIDE, BUT UNABLE TO LAY ON BACK DUE TO SIZE OF ABDOMEN AND PRESSURE EXERTED BY ABDOMEN. SP02 IS 100% ON 3 L NC. PT WEARS 3-4 L AT HOME REPORTED.
--- NOTE | 2017-11-01 18:27 | EKG ---
[facility] [address] [place], [place] [address] Signed Normal sinus rhythm Low voltage QRS Cannot rule out Anterior infarct (cited on or before 01-NOV-2017) Abnormal ECG When compared with ECG of 01-NOV-2017 17:17, (Unconfirmed) QT has shortened Confirmed by ARYAN SCHILLING DO ([id number]) on 11/01/2017 6:26:45 PM Electronically Signed By: ARYAN SCHILLING DO 11/01/17 1827 PATIENT NAME: DALE CASEY Electrocardiogram DATE OF : 58 PHYSICIAN: ARYAN SCHILLING DO REPORT #: [id number] REPORT IS CONFIDENTIAL AND NOT TO BE RELEASED WITHOUT AUTHORIZATION
--- NOTE | 2017-11-01 19:15 | NUR ---
SHIFT REPORT RECEIVED FROM BETH MCGARRY. PT IS CURRENTLY ON BED DUNAWAY. 3L O2 VIA NC IN PLACE. MADERA PATENT. BLOOD CURRENTLY INFUSING, IV PATENT. WILL CONTINUE TO MONITOR.
--- NOTE | 2017-11-01 20:00 | NUR ---
ASSESSMENT COMPLETED. PT IS CONFUSED, ORIENTED TO SELF AND BIRTHDAY ONLY. DENIES PAIN. LUNGS DIMINISHED, 3L O2 VIA NC IN PLACE WHICH IS CHRONIC FOR PT. HR REGULAR. BOWEL TONES ACTIVE, PT ONLY HAD SMEAR OF BM WHILE ON BED DUNAWAY, NOT ENOUGH TO RECORD. MADERA PATENT, URINE IS ORANGE. PT HAS VERY LARGE ABDOMEN, POSSIBLE PARACENTESIS TOMORROW. EDEMA ALSO PRESENT IN BLE. CHRONIC SKIN COLOR CHANGES IN BLE. IV PATENT, BLOOD BAG NOW EMPTY, SWITCHED TO THE NORMAL SALINE SIDE OF THE TUBING TO FLUSH THE REMAINDER OF BLOOD IN THE TUBING. IV SITE WNL. SCD'S PLACED ON PT. WILL CONTINUE TO MONITOR.
--- NOTE | 2017-11-01 20:15 | NUR ---
IN TO CHECK ON PT WHO STATES "CAN YOU HELP ME? I'M BLEEDING." IT APPEARS THAT THE IV HAS BEEN PULLED OUT, UNABLE TO DETERMINE IF PT INTENTIONALLY PULLED IV OR IF IT WAS ACCIDENTALLY PULLED WHEN HE WAS REPOSITIONING HIMSELF IN BED. BANDAID PLACED ON IV SITE, SKIN CLEANED, NEW GOWN/DRAW SHEET/CHUX PLACED. PT ABLE TO HELP TURN AND BOOST HIMSELF UP IN BED. R.T. NOW IN TO GIVE BREATHING TREATMENT AND THEN WILL LOOK FOR NEW IV SITE.
--- NOTE | 2017-11-01 21:15 | NUR ---
BLOOD COMPLETED AT 2014, POST VS TAKEN AT THIS TIME, WNL. PT SHOWS NO S/SX OF ADVERSE REACTION. MERCHANDISE FLOW TEAM LEADER ATTEMPTING TO PLACE IV AT THIS TIME.
--- NOTE | 2017-11-01 21:45 | NUR ---
FREIGHT CAR REPAIRER UNABLE TO PLACE IV. CALLED AND SPOKE WITH DR. SCHILLING, RECEIVED ORDER TO CHANGE CIPRO FROM IV TO 500MG PO BID.
--- NOTE | 2017-11-01 22:04 | NUR ---
WIRE STRIPPING MACHINE OPERATORBETH ACEVES ABLE TO PLACE 22G IV IN RIGHT WRIST. PT TOLERATED WELL.
--- NOTE | 2017-11-01 23:12 | NUR ---
PT CONTINUES TO ASK FOR HIS , REMINDED HIM MULTIPLE TIMES THAT SHE WENT HOME FOR THE NIGHT AND WILL RETURN TOMORROW. PT WANTS TO SIT UP, ASSISTED HIM TO REPOSITION SELF HIGHER IN THE BED AND SAT THE HEAD OF BED UP, REMINDED PT THAT HE CAN'T GET OUT OF THE BED AT THIS TIME. PT WITHIN VIEW OF NURSES' STATION, WILL CONINUE TO CLOSELY MONITOR.
--- NOTE | 2017-11-01 23:45 | NUR ---
ASSESSMENT COMPLETED. LUNGS REMAIN DIM IN BASES, 3L O2 VIA NC IN PLACE. IV SL, PATENT, SITE WNL. MADERA PATENT, URINE APPEARS LESS CONCENTRATED, CONTINUES TO PUT OUT LARGE QUANTITIES. SCD'S IN PLACE. WILL CONTINUE TO MONITOR.
--- NOTE | 2017-11-02 00:36 | NUR ---
PT CALLED OUT SO I WENT IN TO CHECK ON HIM, STATES HE NEEDS TO GO TO THE BATHROOM. PT HAD BEEN INCONTINENT OF SMALL AMOUNT OF LOOSE BM. PLACED HIM ON BEDPAN, BUT HE DID NOT HAVE ANY MORE STOOL. PERICARE DONE, NEW ATTENDS AND CHUX IN PLACE. PT ASSISTED TO REPOSITION IN BED. PT STATES HE WANTS TO SIT UP, EXPLAINED THAT I CAN'T GET HIM OUT OF BED RIGHT NOW AND HELPED HIM TO SIT UP HIGHER IN THE BED. WILL CONTINUE TO CLOSELY MONITOR.
--- NOTE | 2017-11-02 02:59 | NUR ---
PT APPEARS TO BE SLEEPING, NO APPARENT DISTRESS. RESPIRATIONS EVEN AND UNLABORED, RR:18, SPO2: 97% ON 3L NC. HR: 96. MADERA PATENT. IV SL. WILL ALLOW FOR REST AND CONTINUE TO MONITOR.
--- NOTE | 2017-11-02 03:50 | NUR ---
ASSESSMENT COMPLETED, NO CHANGES FROM PREVIOUS ASSESSMENT. R.T. IN TO GIVE SCHEDULED BREATHING TREATMENT. WILL CONTINUE TO CLOSELY MONITOR.
--- NOTE | 2017-11-02 04:05 | NUR ---
PT HAD BEEN INCONTINENT OF MEDIUM, LOOSE BM. PERICARE AND NEW ATTENDS IN PLACE. PT REPOSITIONED SELF ONTO LEFT SIDE AND UP IN BED. DENIES FURTHER REQUESTS AT THIS TIME, WILL CONTINUE TO MONITOR.
--- NOTE | 2017-11-02 06:52 | NUR ---
PT RESTING WITH EYES CLOSED, NO APPARENT DISTRESS. RESPIRATIONS EVEN AND UNLABORED RR:16, SPO2: 99% ON 3L, HR: 104.
--- NOTE | 2017-11-02 08:04 | NUR ---
PATIENT LYING ON RIGHT SIDE AT THIS TIME WHICH SEEMS TO BE PATIENT'S PREFERRED SIDE TO LAY ON. PT SLEEPING, BUT EASILY AROUSEABLE. WHEN ASKED, PATIENT STATES HE IS FEELIGN BETTER. PT PULLED ULTRASOUND GUIDED IV OUT OF RIGHT AC LAST EVENING AND ONLY HAS A 22 IN RIGHT WRIST AT THIS TIME. ATTEMPTS TO BE MADE TO OBTAIN BETTER IV ACCESS. H/H THIS AM IS 6.4/20.9. URINE OUTPUT WAS EXCELLENT THROUGH THE NIGHT, MADERA REMAINS INTACT. HR IN THE 90-LOW 100s. CONTINUE TO MONITOR.
--- NOTE | 2017-11-02 09:44 | CONS ---
[facility] [address] [place], [place] [address] Signed DATE OF CONSULTATION: 11/01/2017 CONSULTING PHYSICIAN: Oscar Ochoa MD REASON FOR CONSULTATION: Significant ascites, need for possible paracentesis. HISTORY OF PRESENT ILLNESS: This 56-year-old morbidly obese white man has end-stage liver failure with profound ascites. He was admitted by Dr. Rubio to the intensive care unit with what was considered hepatic encephalopathy. He has had progressive and recurring ascites and issues related to his liver failure over time. His evaluation in the emergency room today by Dr. Rashi Contreras confirmed he had transferred by ambulance to the emergency room with family complaints of progressive weakness and recent falls. 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 He is followed by home health from [facility]. He is known to have hyperammonemia in the past and medicines for that. His evaluation in the emergency room by Dr. Contreras confirmed findings of anemia with hematocrit of 20.7, a platelet count of 109, creatinine somewhat elevated at 1.33 with electrolytes otherwise normal. His INR was 1.5. Bilirubin was 4.5, AST 21, alkaline phosphatase 74, ammonia 102. Urinalysis showed findings suggestive of urinary tract infection with leukocyte esterase, considered moderate bacteria 3+. He does have a chronic indwelling Case catheter is noted. Consideration for paracentesis was made by Dr. Rubio as he did have some degree of shortness of breath. At present, he is undergoing transfusion in the intensive care unit and is resting reasonably comfortably. PHYSICAL EXAMINATION: VITAL SIGNS: His vital signs show a pulse of 94, blood pressure 116/41, pulse oximetry is 100% on nasal cannula 3 L. GENERAL: On exam, he is on his right side down. He has an impressively plethoric appearance overall. ABDOMEN: He has massive enlargement of his abdomen with ascites. He has a long midline incision that is noted. There is no sign of hernia that I can tell. He is not currently tachypneic. Electronically Signed By: OSCAR OCHOA MD 11/02/17 0944 PATIENT NAME: RASHI CASEY CONSULTATION DATE OF : 58 REPORT #: [id number] PHYSICIAN: OSCAR OCHOA MD PCP: MANJIT GREENBERG MD REPORT IS CONFIDENTIAL AND NOT TO BE RELEASED WITHOUT AUTHORIZATION [facility] [address] [place], [place] [address] Signed EXTREMITIES: Show some edema and multiple tattoos. LABORATORY DATA: Lab studies were as described with white count of 4.9, hematocrit 20.7, platelets 109,000, INR of 1.5, sodium of 131, creatinine 1.31, bilirubin 4.5, ammonia 102, albumin 2.1. ASSESSMENT: The patient certainly has a fair amount of ascites and although he is not dyspneic at this time. He is reported to have been previously. Paracentesis is a consideration to assess for bacterial peritonitis, which is is not currently at the forth thought of his concern actually, but he is at risk for that of course. Paracentesis has its own risks including bleeding and so forth, but would likely be able to be performed safely. At this time since he is not acutely dyspneic this evening, we will allow for ongoing transfusion and measures initiated for his apparent hepatic encephalopathy. MEDICATIONS: His medications currently include: 1. Rifaximin. 2. Pantoprazole. 3. Cipro. 4. Budesonide inhaler. 5. Lactulose. 6. Pantoprazole. 7. Lasix. 8. Zofran. ASSESSMENT AND PLAN: We will re-evaluate tomorrow for consideration of paracentesis. This will allow me also to discuss his with his , who certainly would be component and at present the patient only . MD OMER Pino/KAYLAHL /[id number] Electronically Signed By: OSCAR OCHOA MD 11/02/17 0944 PATIENT NAME: RASHI CASEY CONSULTATION DATE OF : 58 REPORT #: [id number] PHYSICIAN: OSCAR OCHOA MD PCP: MANJIT GREENBERG MD REPORT IS CONFIDENTIAL AND NOT TO BE RELEASED WITHOUT AUTHORIZATION [facility] [address] [place] [address] Signed cc: Ari Rubio MD Copies: ARI RUBIO DO ~ Electronically Signed By: OSCAR OCHOA MD 11/02/17 0944 PATIENT NAME: RASHI CASEY CONSULTATION DATE OF : 58 REPORT #: [id number] PHYSICIAN: OSCAR OCHOA MD PCP: MANJIT GREENBERG MD REPORT IS CONFIDENTIAL AND NOT TO BE RELEASED WITHOUT AUTHORIZATION
--- NOTE | 2017-11-02 11:28 | NUR ---
1 UNIT OF BLOOD FINISHES AT THIS TIME. PT REQUESTING PAIN MEDICATION FOR PAIN IN HIS ABDOMEN DUE TO FEELING TIGHT AND DISTENDED. PT STILL TO HAVE PARACENTESIS TODAY. CBC TO BE DRAWN AT 1200. MADERA TO BE CHANGED PER ORDER FROM DR. SCHILLING. PT REMAINS MORE ALERT AND CONVERSIVE TODAY. CONTINUE TO MONITOR CLOSELY.
--- NOTE | 2017-11-02 12:59 | NUR ---
MADERA CATHETER CHANGED AT THIS TIME FOR PATIENT USING AN 18 FR COUDE. PT TOLERATED WELL. 2ND UNIT OF PRBCs STARTED AROUND THIS TIME. CONTINUE TO MONITOR. PARACENTESIS WILL NOT HAPPEN UNTIL TOMORROW. CBC AFTER 2ND UNIT INFUSES.
--- NOTE | 2017-11-02 13:51 | NUR ---
PATIENT UP TO CHAIR AND PT'S BARIATRIC BED WAS CHANGED OUT DUE TO THE SCALE FUNCTION NOT WORKING. PT TOLERATED MOVING WELL. PT NOW SITTING IN CHAIR AND WANTING TO ORDER A HAMBURGER. PT IS MENTATING VERY WELL AND CONVERSIVE AT THIS TIME. PT'S 2ND UNIT OF PRBCs STILL INFUSING. CONTINUE TO MONITOR.
--- NOTE | 2017-11-02 14:14 | NUR ---
PATIENT TO BE TRANSFERRED TO MEDICAL FLOOR WITHOUT TELEMETRY. PT IS GOING TO TRANSFER TO ROOM 114. PT FINISHING EATING HIS HAMBURGER AT THIS TIME AND TOLERATING WELL. CALL LIGHT WITHIN REACH. CONTINUE TO MONITOR.
--- NOTE | 2017-11-02 15:07 | NUR ---
PATIENT WORKED WITH PHYSICAL THERAPY. 2ND UNIT OF BLOOD FINISHED. CBC TO BE DRAWN AT 1530. PT REMAINS IN CHAIR AT THIS TIME. WAITING TO GIVE REPORT AND TRANSFER PATIENT TO MED/SURG.
--- NOTE | 2017-11-02 16:00 | NUR ---
Report received from [facility]cu nurse and patient transfered to [facility]. Patient transfered to room #114. Vital signs stable, lungs sounds clear in bilateral upper and lower lobes. Patient has no further requests at this time, call light within reach.
--- NOTE | 2017-11-02 18:10 | NUR ---
PATIENT SITTING UP IN CHAIR, BEDSIDE. CALL LIGHT IN REACH. NO FURTHER NEEDS AT THIS TIME.
--- NOTE | 2017-11-02 18:30 | NUR ---
PATIENT REQUESTS SUPPLEMENTAL OXYGEN. RECEIVED IN REPORT THAT PATIENT WEARS 3L NC CHRONICALLY AT HOME. PATIENT PLACED ON 2.5L NC AT THIS TIME. PATIENT DENIES FURTHER REQUESTS. CALL LIGHT REMAINS IN REACH.
--- NOTE | 2017-11-02 20:00 | NUR ---
PATIENT VISITING WITH HIS AND HE IS SITTING UP IN THE RECLINER WATCHING TV.
--- NOTE | 2017-11-02 21:00 | NUR ---
ROUNDED CHARGE. PATIENT IS RESTING IN RECLINER. RN IN THE ROOM. PATIENT DENIES ANY COMMENTS, QUESTIONS, OR CONCERNS. CALL LIGHT IN REACH.
--- NOTE | 2017-11-02 22:47 | NUR ---
RN FREDERICK AND I HELPED PATIENT GO TO BED FROM CHAIR USING WALKER. V/S I&O TAKEN AND CHARTED. CALL LIGHT AND BEDSIDE TABLE WITHIN REACH.
--- NOTE | 2017-11-03 00:05 | NUR ---
JUST HELPED PATIENT REPOSITION IN BED, FLUSHED HIS LEFT UPPER ARM IV AND REDRESSED IT. PATIENT HAS BEEN GETTING A LITTLE SLEEP AND SCD'S HAD TO BE DOUBLED UP TO WORK ON THE PATIENT'S LEGS. PATIENT RESTING QUIETLY NOW AT TIS TIME.
--- NOTE | 2017-11-03 02:00 | NUR ---
PATIENT REPOSITIONED WITH TREVER CEILING LIFT AND PULLED UP TO A MORE COMFORTABLE POSITION IN BED. PATIENT HAS NOT SLEPT MUCH AND LIKES WATCHING TV. SONIA YIP, EMPTIED PATIENT'S MADERA. PATIENT SAYS HE IS CURRENTLY COMFORTABLE IN HIS CURRENT POSITION.
--- NOTE | 2017-11-03 03:06 | NUR ---
PATIENT HAS NOT BEEN ABLE TO REST WELL IN HIS BARIATRIC BED AND HAS DECIDED TO GET UP AND SIT IN THE RECLINER TO WATCH TV. PATIENT'S CALL LIGHT IS IN REACH AND HE HAS 2 NEW WARM BLANKETS FOR HIS LAP. PATIENT INFORMED HIS 2000ML FLUID RESTRICTION WILL START OVER AGAIN AT 6AM AND PATIENT VERBALIZD UNDERSTANDING.
--- NOTE | 2017-11-03 06:10 | NUR ---
PATIENT WAS NOT VERY COMFORTABLE IN HIS BARIATRRIC BED LAST NIGHT. WATCHED TV MOST OF THE NIGHT AND FINALLY GOT UP TO THE RECLINER TO WATCH TV. RT WRIST IV HAD TO BE DC'D AT THE BEGINING OF THE SHIFT IT WAS NO PATENT AND THE PATIENT WANTED IT OUT. SCD'S WERE PLACED TOGETHER TO FIT PATIENT'S LEGS WHILE IN BED. MADERA HAS BEEN DRAINING WELL. BOWEL TONES ACTIVE AND LUNGS CLEAR. ALL SUPPLIES FOR 'S PROCEDURE AND CONSENT FOR THE PARACINTESIS IS IN THE ROOM FOR DAY SHIFT.
--- NOTE | 2017-11-03 08:45 | NUR ---
PT SITTING UP IN CHAIR WATCHING TV WITH NO C/O PAIN. 2 L/MIN O2 ON PT RIGHT NOW VIA NC. A/OX4. GENERALIZED, PITTING EDEMA. MEDS AND ASSESSMENT COMPLETED. HE HAS NO QUESTIONS OR CONCERNS AT THIS TIME. EDUCATION COMPLETED WITH PT. STRICT I/O BEING RECORDED WELL [address] FALL PRECAUTIONS IN PLACE. CALL LIGHT AND BELONGINGS WITHIN REACH. WILL CONTINUE TO MONITOR.
--- NOTE | 2017-11-03 09:31 | NUR ---
PT STILL RESTING UP IN CHAIR WATCHING TV WITH NO C/O PAIN, NO QUESTIONS OR CONCERNS. PT AWAITING PARACENTESIS TODAY TO "BE MORE COMFORTABLE." CALL LIGHT AND BELONGINGS WITHIN REACH. WILL CONTINUE TO MONITOR.
--- NOTE | 2017-11-03 09:55 | NUR ---
pt is sitting up in chair with call light in reach. pt did not need anything at the moment
--- NOTE | 2017-11-03 11:10 | NUR ---
PT UP IN CHAIR WATCHING TV, NO C/O PAIN OR DISCOMFORT. PT REQUEST FOR BACITRACIN FOR DRY NOSE; PT STATED THAT HE HAD A "BLOODY NOSE." I ASSESSED THE TISSUE HE USED AND IT HAD SCANT/SMALL AMOUNT OF BLOOD-NOTHING EXCESSIVE OR WORRISOME. PT HAS NO QUESTIONS OR CONCERNS AT THIS TIME. CALL LIGHT AND BELONGINGS WITHIN REACH AND FALL PRECAUTIONS IN PLACE. WILL CONTINUE TO MONITOR.
[2017-11-03] MEDS ORDERED: DUTASTERIDE-TA1 EACH PO (12:09)
--- NOTE | 2017-11-03 13:20 | NUR ---
PT UP IN CHAIR WATCHING TV WITH NO C/O PAIN. NO QUESTIONS OR CONCERNS. PT C/O OF THE SAME DISCOMFORT HE HAS ALL MORNING IN REGARDS TO ABDOMINAL DISTENTION. STILL REFUSING SCD. CALL LIGHT AND BELONGINGS WITHIN REACH. FALL PREVENTION PRECAUTIONS IN PLACE. SCHEDULED MEDS GIVEN. PT HAVING ADEQUATE UOP IN MADERA FROM SCHEDULED LASIX. WILL CONTINUE TO MONITOR.
--- NOTE | 2017-11-03 14:16 | NUR ---
pt is sitting up in chair with call light in reach. pt did not need anything at the moment
[2017-11-03] MEDS ORDERED: HYDROCODON-ACE1 EAC8 PO (14:34)
[2017-11-03] MEDS ORDERED: ANORO ELLIPTA1 EACH INH (15:44)
[2017-11-03] MEDS ORDERED: TRAZODONE HCL50 MG PO (15:48)
--- NOTE | 2017-11-03 15:49 | NUR ---
MED RED COMPLETE WITH PATIENT'S CAREGIVER/ DAUGHTER INTERVIEW AND SAFEWAY REFILL HISTORY.
--- NOTE | 2017-11-03 17:34 | NUR ---
DR. OCHOA AT PT'S BEDSIDE AT THIS TIME; THROUGHOUT THIS SHIFT PT HAS BEEN PLEASANT, CALM AND COOPERATIVE WITH NO C/O PAIN, BUT STATED THROUGHOUT HIS ABDOMINAL DISCOMFORT FROM THE DISTENTION/ASCITES. NO CONFUSION AND WAS A/O X4. PT HAD A BM THIS AFTERNOON AFTER MD INCREASED LACTULOSE TO [address] OCHOA TO PERFORM PARACENTESIS AT THIS TIME. WILL ASSIST NEEDED. PT HAS NO QUESTIONS OR CONCERNS AT THIS TIME. CALL LIGHT AND BELONGINGS WITHIN REACH. WILL CONTINUE TO MONITOR AND ASSESS PARA SITE WHEN DR. OCHOA FINISHES.
--- NOTE | 2017-11-03 19:30 | NUR ---
FINISHED GETTING REPORT. UNABLE TO PERFORM PARACENTESIS WITH TODAY AND THIS WILL HAVE TO BE DONE WITH IMAGING TOMORROW. PATIENT SITTING UP WATCHING TV AT THIS TIME.
--- NOTE | 2017-11-03 19:55 | NUR ---
CHARGE NURSE ROUNDING NOTE: PT IN BARIATRIC BED, O2 IN PLACE, RT IN ROOM FOR NEBS. PT DENIES C/O PAIN, NO REQUESTS, CALL LIGHT AT BEDSIDE, PT ON FLUID RESTRICTION
--- NOTE | 2017-11-03 20:57 | NUR ---
VITALS AND I&OS DONE AND CHARTED. BEDSIDE TABLE AND CALL LIGHT WITHIN REACH.
--- NOTE | 2017-11-04 | NUR ---
PATIENT'S ABD INJECTION SITES FROM YESTERDAY STARTED LEAKINGAND MADE THE PATIENT'S GOWN AND BEDING WET. GOT PATIENT UP TO THE RECLINER [facility] GOWN AND BED CHANGED. PATIENT'S DRESSING HAD FALLEN OFF,SO THE AREA WAS RECOVERED WITH 5 ABD'S, 5 OP-SITES, AND FOAM TAPE. PATIENT THEN GOT BACK INTO BED AND WENT TO SLEEP AFTER TAKING TRAZADONE. PATIENT'S DRESSING CLEAN AND DRY AT THIS TIME.
--- NOTE | 2017-11-04 04:04 | NUR ---
PATIENT CURRENTLY SLEEPING QUIETLY, RESPIRATIONS EVEN AND REGULAR WITH A RATE OF 18. TV IS ON, BUT PATIENT RESTING QUIETLY.
--- NOTE | 2017-11-04 06:22 | NUR ---
PATIENT CURRENTLY RESTING IN BED WATCHING TV. NEW ABD DRESSING REMAINS IN PLACE, BUT YOU CAN TELL THERE IS FLUID BUILDING UP ON THE ABD PADS UNDER THE OPSITE, BUT IT HAS NOT COME THROUGH AND BED AND GOWN ARE STILL DRY. MADERA IS STILL DRAINING WEL AND PATIENT HAS BEEN NPO SINCE MIDNIGHT. LEFT UPPER ARM IV IS STILL FLUSHIG WELL. PATIENT AWAITING TO SEE THIS AM FOR IMAGING PROCEDURE FOR PARACENTESIS.
--- NOTE | 2017-11-04 07:23 | NUR ---
RECIEVED BEDSIDE REPORT FROM BETH MACK. PT UP TO BATHROOM WITH 2 PERSON STANDBY ASSIST, USING FWW, THEN TO RECLINER. PERSONAL SUPPLIES AND CALL LIGHT IN REACH.
--- NOTE | 2017-11-04 10:00 | NUR ---
PATIENT HAS BEEN SITTING UP IN HIS CHAIR FOR BREAKFAST AND LUNCH. GOT HIM A NEW GOWN.
--- NOTE | 2017-11-04 10:30 | NUR ---
PATIENT'S BLOOD PRESSURE WAS REPORTED LOW TO THIS RN BY THE MEDICAL IMAGING TECHNOLOGIST, THEN REPORTED TO THE MD BY THIS RN. 1 LITER OF LR HUNG AND STARTED AT THIS TIME ORDERED BY THE DOCTOR FOR LOW BP.
--- NOTE | 2017-11-04 10:37 | NUR ---
ULTRA SOUND TECH TO SEE PT, DID ABDOMINAL ULTRASOUND. PT HAD ABD PADS X 5 WITH OP SITES OVER THEM TO PUNCTURE SITES TO LLQ OF ABDOMEN. THESE HAD BECOME SATURATED WITH SEROUS DRAINAGE. THIS RN CHANGED DRESSING, NEW APPLIED. PUNCTURE SITES FROM PERASENTESIS ATTEMPTS STILL DRAINING LARGE AMOUNT OF SEROUS DRAINAGE. PT IN BED. RERPORTED PAIN TO LEFT ABDOMEN, DECLINED ACETAMINOPHEN. PERSONAL SUPPLIES AND CALL LIGHT IN REACH. PT DENIED NEEDS.
--- NOTE | 2017-11-04 13:08 | NUR ---
PT WORKED WITH SENDY, PHYSICAL THERAPY. PT AMBULATED FROM DOORWAY OF ROOM 114 BACK TO HIS RECLINER IN ROOM 114 WITH FWW.
--- NOTE | 2017-11-04 13:21 | NUR ---
PER SENDY, PHYSICAL THERAPIST, PT AMBULATED 90 FEET, AND HIS GOAL IS 150 FEET.
--- NOTE | 2017-11-04 13:35 | NUR ---
PT C/O INCREASED ABDOMINAL PAIN, WELL PAIN IN HIS LEGS AND BACK, WHICH HE REPORTS IS CHRONIC FOR HIM. PT REPORTED TO THIS RN THAT HE TAKES NORCO 10/325 MG 1 TAB DAILY, PRN. NOTIFIED DR. SCHILLING OF THIS. DR. SCHILLING GAVE VORB FOR OXYCODONE 5 MG PO Q 6 HOURS PRN.
--- NOTE | 2017-11-04 14:05 | NUR ---
PT ATE A PIECE OF [place], SUGAR FREE WHILE SITTING UP IN HIS RECLINER. PT THEN TRANSFERED FROM RECLINER TO BED WITH FWW WITH 1 PERSON ASSIST. PERSONAL SUPPLIES AND CALL LIGHT IN REACH.
--- NOTE | 2017-11-04 15:52 | NUR ---
DR. MCLAIN IN TO SEE PT, WITH A DIAGNOSTIC ACID LOADER. PER DIAGNOSTIC ACID LOADERSABAS, DR. MCLAIN REMOVED 5.5 LITERS OF PERITONEAL FLUID. DR. MCLAIN IN ROOM WHEN THIS RN ENTERED, FOLLOWING REMOVAL OF FLUID. SHE PLACED A BANDAID TO PUNCTURE SITE THAT SHE MALENA FLUID FROM. PT WAS IN BED. ASSISTED PT UP TO RECLINER WITH FWW WITH 1 PERSON ASSIST. PT PROVIDED WITH ICE WATER, WITHIN HIS FLUID RESTRICTION. PT DENIED OTHER NEEDS. PERSONAL SUPPLIES AND CALL LIGHT IN REACH.
--- NOTE | 2017-11-04 18:17 | NUR ---
PT SALINE LOCKED. ON A CARDIAC DIET WITH 2000 ML FLUID RESTRICTION. PT HAS 200 ML LEFT ON THIS SHIFT, AND WILL HAVE 400 ML AVAILABLE FOR NOC SHIFT. PT UP WITH 1-2 PERSON ASSIST, USING FWW. PT HAS CHRONIC PAIN TO BACK, LEGS, AND HAS ACUTE PAIN TO ABDOMEN FROM ATTEMPTED PARACENTESIS TO RLQ ABDOMEN, AND PARACENTESIS TO LLQ TODAY. 5.[address] MCLAIN VIA PARACENTESIS THIS AFTERNOON. STARTED OXYCODONE 5 MG PO Q 6 HOURS PRN THIS SHIFT, HAD 5 MG AT 1351. MADERA CATHETER IN PLACE, DRAINING LARGE AMOUNT ORANGE COLORED URINE. PT TAKING PO LASIX. PT HAD A SMALL LOOSE BM THIS AM. PT WEARS OXYGEN 3-4L VIA NC AT HOME ON A CHRONIC BASIS. PT WAS ON 3L THIS AM, TITRATED DOWN TO 2L THIS AFTERNOON, AND IS CURRENTLY ON RA, OXYGEN SATURAITON LEVEL 96%.
--- NOTE | 2017-11-04 18:52 | NUR ---
PT'S PUNCTURE SITES TO RIGHT ABDOMEN STILL DRAINING LARGE AMOUNT OF SEROUS DRAINAGE. PT SATURATED THROUGH 5 ABD PADS WITH OP SITES OVER THEM, DRAINAGE SEROUS. PLACED 6 NEW ABD PADS OVER RIGHT ABDOMEN OVER AND AROUND PUNCTURE SITES FROM ATTEMPTED PARACENTESIS, COVERED WITH FOAM TAPE. PT IN BED, SIGNIFICANT OTHER AT BEDSIDE. PT DENIES OTHER NEEDS.
--- NOTE | 2017-11-04 19:30 | NUR ---
GETTING REPORT. PATIENT HAD HIS PARCENTESIS TODAY AND SEEMS TO BE FEELING MUCH BETTER. ONLY A SMALL PUNCTURE TO THE LEFT ABD WITH A BANDAID PRESENT, BUT THE RT ABD STILL HAS A LARGE DRESSING IN PLACE FROM DRAINAGE WHICH OCCURED THE PREVIOUS DAYS ATTEMPT TO DRAIN THE PATIENT'S ABD, BUT THE DRESSING CDI. PATIENT RESTING QUIETLY IN BED AND THE FIRST TIME HE HAS SMILED IN DAYS.
--- NOTE | 2017-11-04 20:35 | NUR ---
2034 PATIENT HAS ALBUMIN HANGING TO RUN OVER 30 MINUTES. ABD AND LOWER EXTREMITY PAIN 8/10 AND 5MG OXYCODONE GIVEN ALONG WITH OTHER EVENING MED, CATH CARE, AND PERICARE WITH NYSTATIN POWDER, WHICH THE REDNESS IN THE AREA LOOKS MUCH BETTER TO ME.
--- NOTE | 2017-11-04 21:00 | NUR ---
ALBUMIN FINISHED, BUT 18 G IV IN THE UPPER LT ARM IS LEAKING AND REDRESSING IT DID NOT HELP, NO LONGER PATENT AND HAD TO BE PULLED INTACT. JIMI KELLEY RN SUPPERVISOR CONTACTED TO COME AND TRY TO GET ANOTHER IV STARTED BEFORE NEXT ALBUMIN DUE AT 2AM.
--- NOTE | 2017-11-04 22:11 | NUR ---
HELPED PT INTO THE BATHROOM WITH HIS FWW. PT WILL CALL WHEN HE IS READY TO GET BACK TO BED.
--- NOTE | 2017-11-04 22:16 | NUR ---
ROUNDED CHARGE. PATIENT IS RESTING IN BED WATCHING TV. PATIENT DENIES ANY NEEDS, COMMENTS, QUESTIONS, OR CONCERNS. CALL LIGHT IN REACH.
--- NOTE | 2017-11-05 | NUR ---
JIMI RN TRIMMING PRESS OPERATOR CAME IN AND PLACED A NEW 24G IV IN THE PATIENT'S RT HAND. PATIENT TOLERATED IT WELL.
--- NOTE | 2017-11-05 00:59 | NUR ---
PATIENT CURRENTLY SLEEPING ON HIS RT SIDE, TV ON, RESPIRATIOND EVEN AND REGULAR, EYES CLOSED.
--- NOTE | 2017-11-05 05:16 | NUR ---
PATIENT HAD DOSES OF ALBUMIN THROUGH THE NIGHT. PHI IV WENT BAD RIGHT AFTER FIRST INFUSION AND HAD TO BE PULLED. ABOUT 2400 JIMI THE NURSING DIRECTOR INTERNAL CONTROL STARTED A 24G IN THE RIGHT HAND WHICH WENT BAD AND WAS NO PATENT WHEN TME FOR THE 2AM DOSE OF ALBUMIN SO AFER 3 ATTEMPTS A 24G IV WAS STARTED IN THE KUMAR AND THE ALBUMIN WAS INFUSED. THEN THE PATIENTS GOWN AND BEDDING WERE CHANGED WELL HIS VERY LARG RIGHT SIDED ABD DRESSING WHICH WAS SATURATED FROM ABD FLUID FROM A PREVIOUS PARACETESIS ATTEMPT. THIS WAS REINFORCED WITH 6 ABD'S, OPSITES AND FOAM TAPE. PATIENT ALSO HAVING 9/10 ABD PAIN AFTER AL THIS MOVEMENT AND 5MG OXYCODONE WAS GIVEN. PATIENT IS NOW COMFORTABLE AND SLEEPING QUIETLY,EYES CLOSED, RESPIRATIONS EVEN AND REGULAR AT A RATE OF 16. PATIENT HAS HAD GOOD URINE OUTPUT FROM MADERA AND STOOLS FROW LACTULOSE.
--- NOTE | 2017-11-05 06:24 | NUR ---
VITALS AND I&OS DONE AND CHARTED. DAILY WEIGHT DONE AND CHARTED WELL. BEDSIDE TABLE AND CALL LIGHT WITHIN REACH.
--- NOTE | 2017-11-05 06:27 | NUR ---
DID NOT GET DAILY WEIGHT YET.
--- NOTE | 2017-11-05 08:15 | NUR ---
PT UP IN CHAIR WITH NO C/O PAIN AT THIS TIME. CALM AND COOPERATIVE BUT FLAT AFFECT. HE STATES HE IS MUCH MORE COMFORTABLE AFTER PARACENTESIS COMPLETED. ASSESSMENT COMPLETED. NO QUESTIONS OR CONCERNS BUT STATES HIS READINESS TO DISCHARGE. CALL LIGHT AND BELONGINGS WITHIN REACH. CHAIR LOCKED AND FALL PRECAUTIONS IN PLACE. RIGHT ABD DRESSING DRY AFTER GETTING EARLY AM DRG CHANGE BY RAILROAD YARD WORKER RN. WILL CONTINUE TO MONITOR.
--- NOTE | 2017-11-05 09:14 | NUR ---
pt was up in chair for breakfast. pt resting in bed safely. pt has no needs at this time. call light within reach.
--- NOTE | 2017-11-05 09:25 | NUR ---
MEDICATIONS GIVEN. PT STATES HE IS HAVING ABD PAIN; PAIN MEDICATION GIVEN. PT IN BED LAYING ON RIGHT SIDE STATING HOW TIRED HE FEELS AFTER NOT GETTING MUCH SLEEP OVER NIGHT. PT STATING HIS READINESS FOR DISCHARGE. CALL LIGHT AND BELONGINGS WITHIN REACH. BED LOCKED WITH BED ALARM ON AND FALL PRECAUTIONS IN PLACE. WILL CONTINUE TO MONITOR.
[2017-11-05] MEDS ORDERED: FUROSEMIDE80 MG PO (09:55)
[2017-11-05] MEDS ORDERED: ALDACTONE100 MG PO (09:57)
[2017-11-05] MEDS ORDERED: DOXYCYCLINE HY100 MG PO (10:06)
--- NOTE | 2017-11-05 12:20 | NUR ---
THIS RN CHANGED PT'S R ABD PUNCTURE SITE DRG AT THIS TIME; THE DRG PLACED BY NOC RN EARLY THIS MORNING WAS COMPLETELY SATURATED. DRG NOW C/D/I. NO OTHER QUESTIONS OR CONCERNS BY PT AT THIS TIME; AWAITING ARRIVAL OF HIS RIDE FOR DC WHO WILL BE TO HOSPITAL AROUND 4 PM PER PT. PT UP IN CHAIR. CALL LIGHT AND BELONGINGS WITHIN REACH. WILL CONTINUE TO MONITOR.
--- NOTE | 2017-11-05 14:09 | NUR ---
pt is up in chair. pt is feeling sleepy and thirsty, nurse notified. call light within reach. pt has no further needs.
--- NOTE | 2017-11-05 14:35 | NUR ---
PT UP IN CHAIR AND APPEARS TO BE IRRITABLE/FRUSTRATED WITH PLAN OF CARE IN REGARDS TO FLUID RESTRICTION. AFTER I TOLD PT HE COULDN'T HAVE ANOTHER CAN OF SODA SINCE HE WAS OVER HIS MAX AMOUNT FOR THE AFTERNOON IN FLUIDS, PT TOLD PATIENT FINANCIAL REPRESENTATIVE THAT THE "NURSES HERE ARE A BUNCH OF JACKASSES." HE TOLD HER THAT HE IS DEHYDRATED AND THAT STAFF ARE DEPRIVING HIM. I FURTHER EDUCATED THE PT ON DISEASE PROCESS AND THE CORRELATION WITH RESTRICTING FLUIDS. PT SEEMED BOTH UNINTERESTED IN MY CONVERSATION AND APPEARED TO HAVE MINIMAL UNDERSTANDING. RIGHT ABDOMINAL DRESSING IS STILL INTACT AT THIS TIME. PT ISN'T WEARING ANY OXYGEN; 02 SAT 97% ON ROOM AIR. PT READY FOR DC BUT WE ARE WAITING FOR HIS RIDE TO ARRIVE TO HOSPITAL; PER PT HIS AUNT IS COMING BETWEEN 1600 AND 1630; PT AND HIS STATE THAT HE WOULDN'T BE ABLE TO FIT INTO HIS AUNT'S "TINY CAR" SO A TAXI IS BEING SET UP BY CHARGE NURSE FOR WHEN HIS AUNT ARRIVES. CALL LIGHT AND BELONGINGS WITHIN REACH. WILL CONTINUE TO MONITOR.
--- NOTE | 2017-11-05 22:04 | OR ---
[facility] [address], [place] [address] Signed DATE OF OPERATION: 11/03/2017 SURGEON: Oscar Ochoa MD PREOPERATIVE DIAGNOSES: 1. Mass with morbid obesity and ascites. 2. Recovering encephalopathy related to hepatic failure. POSTOPERATIVE DIAGNOSES: 1. Mass with morbid obesity and ascites. 2. Recovering encephalopathy related to hepatic failure. PROCEDURE: Attempted large volume paracentesis, unsuccessful except for small volume for analysis. ANESTHESIA: 1% lidocaine. DESCRIPTION OF PROCEDURE: In the supine position with the head slightly elevated, the right abdominal wall was widely prepared with Betadine solution and draped sterilely. Using sterile technique, 1% lidocaine was injected in the right lower abdominal area. Using an institutional paracentesis kit and a three-way stopcock and so forth for passage of the catheter and syringe and stopcock presumably through the abdominal wall was undertaken. Aspiration during the course of passage did deliver some davis-yellow fluid. It was not possible to effectively thread the catheter into the peritoneal cavity despite efforts to do so. A repeat attempt was made in a similar technique somewhat cephalad and anterior to that again without success. A small amount of peritoneal fluid was leaking at the conclusion of procedure, but a gauze was applied with a bandage. ASSESSMENT: Incomplete large volume paracentesis despite attempt to do so. This is a function of the narrow catheter that is available to me in this institution at this time. I will recommend that an ultrasound-guided paracentesis be undertaken by Radiology Department as there may be bowel loops that are loculated and prohibit passage of the narrow catheter that is available to us at this time. Electronically Signed By: OSCAR OCHOA MD 11/05/17 2204 PATIENT NAME: DALE CASEY OPERATIVE REPORT DATE OF : 58 REPORT #: [id number] PHYSICIAN: OSCAR OCHOA MD PCP: MANIJT GREENBERG MD REPORT IS CONFIDENTIAL AND NOT TO BE RELEASED WITHOUT AUTHORIZATION [facility] [address] [place] [id number] Signed Oscar Ochoa MD JM/MODL /[id number] cc: MD Dr. Radha Pagan Copies: ARYAN SCHILLING DO ~ Electronically Signed By: OSCAR OCHOA MD 11/05/17 2204 PATIENT NAME: DALE CASEY OPERATIVE REPORT DATE OF : 58 REPORT #: [id number] PHYSICIAN: OSCAR OCHOA MD PCP: MANJIT GREENBERG MD REPORT IS CONFIDENTIAL AND NOT TO BE RELEASED WITHOUT AUTHORIZATION
--- NOTE | 2017-11-08 15:50 | NUR ---
FAXED CHART NOTES TO INCLUDE FACESHEET, ORDER, H AND P, DC SUMMARY TO [facility]. RECIEVED FAX CONFIRMATION.
== END 2017-11-05 16:30 | disposition home or self-care (01) | DRG 442 ==
LOC: ED 10:42 → CCU 15:01 → MS 11-02 17:02
PROVIDERS: ADMIT Student in an Organized Health Care Education/Training Program
PROC: 0W9G3ZZ Drainage of Peritoneal Cavity, Percutaneous Approach (ICD-10-PCS; principal; 2017-11-04)
PROC: 30233N1 Transfusion of Nonautologous Red Blood Cells into Peripheral Vein, Percutaneous Approach (ICD-10-PCS; 2017-11-04)
DX: K72.90 Hepatic failure, unspecified without coma (principal); R18.8 Other ascites; T83.511A Infection and inflammatory reaction due to indwelling urethral catheter, initial encounter; J96.11 Chronic respiratory failure with hypoxia; D62 Acute posthemorrhagic anemia; I13.0 Hypertensive heart and chronic kidney disease with heart failure and stage 1 through stage 4 chronic kidney disease, or unspecified chronic kidney disease; D61.818 Other pancytopenia; D64.9 Anemia, unspecified; N40.1 Benign prostatic hyperplasia with lower urinary tract symptoms; J44.9 Chronic obstructive pulmonary disease, unspecified; F39 Unspecified mood [affective] disorder; G89.4 Chronic pain syndrome; K21.9 Gastro-esophageal reflux disease without esophagitis; Z79.891 Long term (current) use of opiate analgesic; Z99.81 Dependence on supplemental oxygen; Z79.4 Long term (current) use of insulin; E11.22 Type 2 diabetes mellitus with diabetic chronic kidney disease; N18.9 Chronic kidney disease, unspecified; I50.9 Heart failure, unspecified; R19.00 Intra-abdominal and pelvic swelling, mass and lump, unspecified site; E66.01 Morbid (severe) obesity due to excess calories
CPT/HCPCS: 36415; 36430; 49083; 71045; 80048; 80053; 81001; 82140; 84157; 85025; 85045; 85610; 85730; 86850; 86900; 86901; 86920; 87070; 87077; 87088; 87186; 87205; 89051; 93005; 93010; 94640; 94667; 94668; 97116; 97163; 97165; 97535; 99285; P9016; P9047

== ENCOUNTER 2017-11-08 15:50 | Inpatient (IN) | payer MEDICARE, OTHER ==
[~2017-11-08] VITALS: Ht 200.7 cm; Wt 182.0 kg
--- OUTSIDE RECORDS SUMMARY | ~2017-11-08 | XMS | Clinical Summary ---
Demographics + + + | Address | [address] | | | [place] [address] | + + + | Home Phone | | + + + | Preferred Language | Unknown | + + + | Marital Status | | + + + | Yazdanism Affiliation | Unknown | + + + | Race | Unknown | + + + | Ethnic Group | Unknown | + + + Author + + + | Author | [facility] | | | and Reyana | + + + | Organization | [facility] | | | and [place] [...] Team Providers + +------+ + | Care Reception Clerk Name | Role | Phone | [...] + | DM (diabetes mellitus) (FORM[facility]LY [facility]) | 02/08/2017 | + + + | Heart failure (FORMERLY [facility]) | 02/08/2017 | + + + | [...] + | 11/21/ | Office | | [facility], | | | 2017 | Visit | | [facility] [address] | | | | | | [address] | | | | | | [place] | | | | | | [address] | | | | | | | [...] + + + + | Hemoglobin A1c Q3 | | | | | Months | 8 | | | + + + + + | Vaccine: Influenza | | 12/24/2016, 12/24/2016 | | | (#1) | 8 | | | + + + + + | Vaccine: | | 06/14/2017 | | | Dtap/Tdap/Td (2 - | 8 | | | | Td) | | | | + + + + + | Colorectal Cancer | | 07/15/2017, 07/15/2017 | | | Screening | 8 | | | | (Colonoscopy) | | [...] | EXTERNAL LAB: JACKELYN | Routin | 10/19/2017 | | Results [...] | + +--------+ + + + | VERONICA WITH | Routin | 08/14/2017 | | [...] | EXTERNAL LAB: VERONICA | Routin | 08/14/2017 | | Results for this | | | e | 0000 PDT | | procedure are in the | | | | | | results section. | + +--------+ + + + | EXTERNAL LAB: BUN | Routin | 08/14/2017 | | Results [...] from Last 3 Months Results External Lab: PTT (10/19/2017) + +-------+ + [...] + +---------+ + + External Lab: JACKELYN (10/19/2017)Only the most recent of 3 results within the time period is i ncluded. + +-------+ + + | Component | [...] + +---------+ + + External Lab: Glucose (10/19/2017)Only the most recent of 3 results within the time period is included. + +---------+ + + | Component | [...] +---------+ + + External Lab: Troponin T (10/19/2017)Only the most recent of 2 results within the time irina od is included. + +--------+ + + | Component | [...] + +---------+ + + External Lab: ALT (10/19/2017)Only the most recent of 3 results within the time period is i ncluded. + +-------+ + + | Component | [...] + +---------+ + + External Lab: AST (10/19/2017)Only the most recent of 3 results within the time period is i ncluded. + +--------+ + + | Component | [...] +---------+ + + External Lab: Alkaline Phosphatase (10/19/2017)Only the most recent of 3 results within the time period is included. + +-------+ + + | Component | [...] +---------+ + + External Lab: Bilirubin, Total (10/19/2017)Only the most recent of 3 results within the is included. + +---------+ + + | Component | [...] + +---------+ + + External Lab: Albumin (10/19/2017)Only the most recent of 3 results within the time period is included. + +---------+ + + | Component | [...] +---------+ + + External Lab: Protein, Total (10/19/2017)Only the most recent of 3 results within the time period is included. + +-------+ + + | Component | [...] + +---------+ + + External Lab: Calcium (10/19/2017)Only the most recent of 3 results within the time period is included. + +---------+ + + | Component | [...] +---------+ + + External Lab: Carbon Dioxide (10/19/2017)Only the most recent of 3 results within the time period is included. + +-------+ + + | Component | [...] + +---------+ + + External Lab: Chloride (10/19/2017)Only the most recent of 3 results within the time period is included. + +-------+ + + | Component | [...] + +---------+ + + External Lab: Potassium (10/19/2017)Only the most recent of 3 results within the time perio d is included. + +-------+ + + | Component | [...] + +---------+ + + External Lab: Sodium (10/19/2017)Only the most recent of 3 results within the time period i s included. + +-------+ + + | Component | [...] + +---------+ + + External Lab: CBC (10/19/2017)Only the most recent of 3 results within the time period is i ncluded. + + + + + | Component [...] | + +---------+ + + External Lab: Protime INR (10/19/2017) + + + + + [...] + +---------+ + + External Lab: eGFR (10/19/2017)Only the most recent of 3 results within the time period is included. + +--------+ + + | Component | [...] + +---------+ + + External Lab: Creatinine (10/19/2017)Only the most recent of 3 results within the time irina od is included. + +-------+ + + | Component | [...] + +---------+ + + CBC with Differential (10/19/2017)Only the most recent of 3 results within the time period is included. + +-------+ + + | Component | [...] Blood | + + Comprehensive Metabolic Panel (10/19/2017)Only the most recent of 3 results within the time period is included. + +---------+ + + | Component | [...] | Blood | + + External Lab: B Type Naturetic [...] unspecified provider. | | + + + Ammonia (08/23/2017) + +--------+ + + | Component | Value | Ref Range | Performed At | + +--------+ + + | AMMONIA | 86 (A) | 11 - 35 umol/L | | + +--------+ + + + + | Specimen | + + | Blood | + + External Lab: Lipase (08/14/2017) + [...] | | | + +---------+ + + from Last 3 Months Insurance + +--------+ +--------+ +---------+ | Payer | Benefi | Subscriber | Type | Phone | Address | | | t Plan | ID | | | | | | / | | | | | | | Group | | | | | + +--------+ +--------+ +---------+ | MEDICARE | MEDICA | [id number] | Medica | +1-- | | | | RE | | re | [phone] | | | | PART A | | | | | | | AND B | | | | | + +--------+ +--------+ +---------+ | [place]ICAID [place] | MEDICA | [id number] | Medica | [phone] | | | [...] | Self | [birth year] Home: | [address] | | | al/Fam | | [phone] | [phone] | [place] | | | [place]una | | | [phone] | + +--------+ +--------+ + +"
--- OUTSIDE RECORDS SUMMARY | ~2017-11-08 | XMS | Clinical Summary ---
Demographics + + + | Address | [address] | | | [place] [address] | + + + | Home Phone | | + + + | Preferred Language | Unknown | + + + | Marital Status | | + + + | Episcopalian Affiliation | Unknown | + + + | Race | Unknown | + + + | Ethnic Group | Unknown | + + + Author + + + | Author | [facility] | | | and [place] | + + + | Organization | [facility] | | | and [place] [...] Team Providers + +------+ + | Care Optical Instruments Supervisor Name | Role | Phone | + [...] + + | DM (diabetes mellitus) ([facility]) | 02/08/2017 | + + + | Heart failure ([facility]) | 02/08/2017 | + + + | [...] + | 11/21/ | Office | | [facility], | | | 2017 | Visit | | [facility] [address] | | | | | | [address] | | | | | | [place] | | | | | | [address] | | | | | | | [...] +--------+ +---------+ | MEDICARE | MEDICA | [id number] | Medica | +1-- | | | | RE | | re | [phone] | | | | PART A | | | | | | | AND B | | | | | + +--------+ +--------+ +---------+ | MEDICAID [place] | MEDICA | [id number] | Medica | [phone] | | [...] | Self | [birth year] | Home: | [address] | | | al/Fam | | [phone] | [phone] | [place] | | | shauna | | | [phone] | [phone] | + +--------+ +--------+ + +"
--- OUTSIDE RECORDS SUMMARY | ~2017-11-08 | XMS | Encounter Summary ---
Demographics + + + | Address | [address] | | | [place] [address] | + + + | Home Phone | | + + + | Preferred Language | Unknown | + + + | Marital Status | | + + + | Orthodoxy Affiliation | Unknown | + + + | Race | Unknown | + + + | Ethnic Group | Unknown | + + + Author + + + | Author | [facility] | | | and [place] | + + + | Organization | [facility] | | | and [place] [...] Team Providers + +------+ + | Care Senior Consumer Insights Consultant Name | Role | Phone | [...] | | | | [address] | [place] [address] | | | | | [address] | | | | | | [phone] | | | +--------+ + + + [...] | 11/21/ | Office | Gastroenterology | [facility], | | | 2018 | Visit | | [facility] [address] | | | | | | [address] | | | | | | [place] | | | | | | [address] | | | | | | | [...] | EXTERNAL LAB: VERONICA | Routin | 08/23/2017 | | Results [...] | EXTERNAL LAB: DI | Routin | 07/12/2017 | | Results [...] eGFR, External | 57 (A) | 60 99,999 | EXTERNAL LAB | + +--------+ [...] + +---------+ + + External Lab: JACKELYN (08/14/2017) + +-------+ + + | Component [...] + +-------+ + + | UA Specific [place], | 1.021 | 1.005 - 1.03 | [...]
--- OUTSIDE RECORDS SUMMARY | ~2017-11-08 | XMS | Encounter Summary ---
Demographics + + + | Address | [address] | | | [place] [address] | + + + | Home Phone | | + + + | Preferred Language | Unknown | + + + | Marital Status | | + + + | Jew Affiliation | Unknown | + + + | Race | Unknown | + + + | Ethnic Group | Unknown | + + + Author + + + | Author | [facility] | | | and [place] | + + + | Organization | [facility] | | | and [place] [...] Team Providers + +------+ + | Care Machinist Automotive Name | Role | Phone | + [...] | | | | [address] | [place] [address] | | | | | [address] | | | | | | [phone] | | | +--------+ + + + [...] | 11/21/ | Office | Gastroenterology | [facility], | | | 2018 | Visit | | [facility] [address] | | | | | | [address] | | | | | | [place] | | | | | | [address] | | | | | | | [...] + +-------+ + + | UA Specific [place], | 1.021 | 1.005 - 1.03 | [...]
--- OUTSIDE RECORDS SUMMARY | ~2017-11-08 | XMS | Encounter Summary ---
Demographics + + + | Address | [address] | | | [place] [address] | + + + | Home Phone | | + + + | Preferred Language | Unknown | + + + | Marital Status | | + + + | Muslim Affiliation | Unknown | + + + | Race | Unknown | + + + | Ethnic Group | Unknown | + + + Author + + + | Author | [facility] | | | and [place] | + + + | Organization | [facility] | | | and [place] [...] Team Providers + +------+ + | Care Glass Etcher Helper Name | Role | Phone | + [...] | | | | [address] | [place] [address] | | | | | [address] | | | | | | [phone] | | | +--------+ + + + [...] | 11/21/ | Office | Gastroenterology | [facility], | | | 2018 | Visit | | [facility] [address] | | | | | | [address] | | | | | | [place] | | | | | | [address] | | | | | | | [...] + +-------+ + + | UA Specific [place], | 1.021 | 1.005 - 1.03 | [...]
--- OUTSIDE RECORDS SUMMARY | ~2017-11-08 | XMS | Clinical Summary ---
Demographics + + + | Address | [address] | | | [place] [address] | + + + | Home Phone | | + + + | Preferred Language | Unknown | + + + | Marital Status | | + + + | Yazidism Affiliation | Unknown | + + + | Race | Unknown | + + + | Ethnic Group | Unknown | + + + Author + + + | Author | [facility] | | | and [place] | + + + | Organization | [facility] | | | and [...] Team Providers + +------+ + | Care Cottage Cheese Maker Name | Role | Phone | + [...] + + | DM (diabetes mellitus) ([facility]) | 02/08/2017 | + + + | Heart failure ([facility]) | 02/08/2017 | + + + | [...] + | 11/21/ | Office | | [facility], | | | 2017 | Visit | | [facility] [address] | | | | | | [address] | | | | | | [place] | | | | | | [address] | | | | | | | [...] +--------+ +---------+ | MEDICARE | MEDICA | [id number] | Medica | +1-- | | | | RE | | re | [phone] | | | | PART A | | | | | | | AND B | | | | | + +--------+ +--------+ +---------+ | MEDICAID [place] | MEDICA | [id number] | Medica | [phone] | | | [...] | Self | [birth year] | Home: | [address] | | | al/Fam | | 1961 | [phone] | [place] | | | [place] | | | [phone] | [phone] | + +--------+ +--------+ + +"
[~2017-11-08 15:50] MED LIST changes: +ANORO ELLIPTA1 EACH INH; +CITALOPRAM HBR10 MG PO; +DOXYCYCLINE HY100 MG PO; +FUROSEMIDE80 MG PO; +NARCAN4 MG
[2017-11-09] MEDS ORDERED: SPIRONOLACTONE100 MG PO (17:38)
[2017-11-11] MEDS ORDERED: CLINDAMYCIN HC300 MG PO (12:29)
== END 2017-11-11 16:15 | disposition home or self-care (01) | DRG 560 ==
LOC: ED 15:50 → MS 19:07
PROVIDERS: ADMIT Internal Medicine
DX: T84.53XA Infection and inflammatory reaction due to internal right knee prosthesis, initial encounter (principal); I13.0 Hypertensive heart and chronic kidney disease with heart failure and stage 1 through stage 4 chronic kidney disease, or unspecified chronic kidney disease; I50.22 Chronic systolic (congestive) heart failure; I25.10 Atherosclerotic heart disease of native coronary artery without angina pectoris; M06.9 Rheumatoid arthritis, unspecified; Z86.718 Personal history of other venous thrombosis and embolism; Z79.01 Long term (current) use of anticoagulants; M10.9 Gout, unspecified; I25.5 Ischemic cardiomyopathy; Z95.0 Presence of cardiac pacemaker; E11.22 Type 2 diabetes mellitus with diabetic chronic kidney disease; N18.3 Chronic kidney disease, stage 3 (moderate); E11.649 Type 2 diabetes mellitus with hypoglycemia without coma; E78.5 Hyperlipidemia, unspecified
CPT/HCPCS: 36415; 36569; 71045; 80048; 80053; 81001; 82140; 83735; 85025; 85610; 86850; 86900; 86901; 86920; 94660; 96365; 99284; J0744

== ENCOUNTER 2017-12-06 19:33 | Observation (INO) | payer MEDICARE, OTHER ==
[~2017-12-06] VITALS: Ht 200.7 cm; Wt 144.5 kg
--- OUTSIDE RECORDS SUMMARY | ~2017-12-06 | XMS | Encounter Summary ---
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 | | | | | [address] | [place] [address] | | | | | [phone] | | | | | | [phone] | | | +--------+ + + + [...] as of this encounter Plan of Treatment Not on fileas of this encounter Procedures + +--------+ + + + | Procedure Name | Priori | Date/Time | Associated Diagnosis | Comments | | | ty | | | | + +--------+ + + + | EXTERNAL LAB: PTT | Routin | 10/19/2017 | | Results for this | | | e | 0000 PDT | | procedure are in the | | | | | | results section. | + +--------+ + + + | EXTERNAL LAB: BUN | Routin | 10/19/2017 | | Results for this | | | e | 0000 PDT | | procedure are in the | | | | | | results section. | + +--------+ + + + | EXTERNAL LAB: | Routin | 10/19/2017 | | Results for this | | GLUCOSE | e | 0000 PDT | | procedure are in the | | | | | | results section. | + +--------+ + + + | EXTERNAL LAB: | Routin | 10/19/2017 | | Results for this | | TROPONIN T | e | 0000 PDT | | procedure are in the | | | | | | results section. | + +--------+ + + + | EXTERNAL LAB: ALT | Routin | 10/19/2017 | | Results for this | | | e | 0000 PDT | | procedure are in the | | | | | | results section. | + +--------+ + + + | EXTERNAL LAB: AST | Routin | 10/19/2017 | | Results for this | | | e | 0000 PDT | | procedure are in the | | | | | | results section. | + +--------+ + + + | EXTERNAL LAB: | Routin | 10/19/2017 | | Results for this | | ALKALINE PHOSPHATASE | e | 0000 PDT | | procedure are in the | | | | | | results section. | + +--------+ + + + | EXTERNAL LAB: | Routin | 10/19/2017 | | Results for this | | BILIRUBIN, TOTAL | e | 0000 PDT | | procedure are in the | | | | | | results section. | + +--------+ + + + | EXTERNAL LAB: | Routin | 10/19/2017 | | Results for this | | ALBUMIN | e | 0000 PDT | | procedure are in the | | | | | | results section. | + +--------+ + + + | EXTERNAL LAB: | Routin | 10/19/2017 | | Results for this | | PROTEIN, TOTAL | e | 0000 PDT | | procedure are in the | | | | | | results section. | + +--------+ + + + | EXTERNAL LAB: | Routin | 10/19/2017 | | Results for this | | CALCIUM | e | 0000 PDT | | procedure are in the | | | | | | results section. | + +--------+ + + + | EXTERNAL LAB: CARBON | Routin | 10/19/2017 | | Results for this | | DIOXIDE | e | 0000 PDT | | procedure are in the | | | | | | results section. | + +--------+ + + + | EXTERNAL LAB: | Routin | 10/19/2017 | | Results for this | | CHLORIDE | e | 0000 PDT | | procedure are in the | | | | | | results section. | + +--------+ + + + | EXTERNAL LAB: | Routin | 10/19/2017 | | Results for this | | POTASSIUM | e | 0000 PDT | | procedure are in the | | | | | | results section. | + +--------+ + + + | EXTERNAL LAB: SODIUM | Routin | 10/19/2017 | | Results for this | | | e | 0000 PDT | | procedure are in the | | | | | | results section. | + +--------+ + + + | EXTERNAL LAB: CBC | Routin | 10/19/2017 | | Results for this | | | e | 0000 PDT | | procedure are in the | | | | | | results section. | + +--------+ + + + | EXTERNAL LAB: | Routin | 10/19/2017 | | Results for this | | PROTIME INR | e | 0000 PDT | | procedure are in the | | | | | | results section. | + +--------+ + + + | EXTERNAL LAB: EGFR | Routin | 10/19/2017 | | Results for this | | | e | 0000 PDT | | procedure are in the | | | | | | results section. | + +--------+ + + + | EXTERNAL LAB: | Routin | 10/19/2017 | | Results for this | | CREATININE | e | 0000 PDT | | procedure are in the | | | | | | results section. | + +--------+ + + + | CBC WITH | Routin | 10/19/2017 | | Results for this | | DIFFERENTIAL | e | 0000 PDT | | procedure are in the | | | | | | results section. | + +--------+ + + + | COMPREHENSIVE | Routin | 10/19/2017 | | Results for this | | [...] + + | EXTERNAL LAB: JACKELYN | Routin | 08/14/2017 | | Results for this | | | e | 0000 PDT | | procedure are in the | | | | | | results section. | + +--------+ + + + | EXTERNAL LAB: | Routin | 08/14/2017 | | Results for this | | GLUCOSE | e | 0000 PDT | | procedure are in the | | | | | | results section. | + +--------+ + + + | EXTERNAL LAB: | Routin | 08/14/2017 | | Results for this | | TROPONIN T | e | 0000 PDT | | procedure are in the | | | | | | results section. | + +--------+ + + + | EXTERNAL LAB: LIPASE | Routin | 08/14/2017 | | Results for this | | | e | 0000 PDT | | procedure are in the | | | | | | results section. | + +--------+ + + + | EXTERNAL LAB: ALT | Routin | 08/14/2017 | | Results for this | | | e | 0000 PDT | | procedure are in the | | | | | | results section. | + +--------+ + + + | EXTERNAL LAB: AST | Routin | 08/14/2017 | | Results for this | | | e | 0000 PDT | | procedure are in the | | | | | | results section. | + +--------+ + + + | EXTERNAL LAB: | Routin | 08/14/2017 | | Results for this | | ALKALINE PHOSPHATASE | e | 0000 PDT | | procedure are in the | | | | | | results section. | + +--------+ + + + | EXTERNAL LAB: | Routin | 08/14/2017 | | Results for this | | BILIRUBIN, TOTAL | e | 0000 PDT | | procedure are in the | | | | | | results section. | + +--------+ + + + | EXTERNAL LAB: | Routin | 08/14/2017 | | Results for this | | ALBUMIN | e | 0000 PDT | | procedure are in the | | | | | | results section. | + +--------+ + + + | EXTERNAL LAB: | Routin | 08/14/2017 | | Results for this | | PROTEIN, TOTAL | e | 0000 PDT | | procedure are in the | | | | | | results section. | + +--------+ + + + | EXTERNAL LAB: | Routin | 08/14/2017 | | Results for this | | CALCIUM | e | 0000 PDT | | procedure are in the | | | | | | results section. | + +--------+ + + + | EXTERNAL LAB: CARBON | Routin | 08/14/2017 | | Results for this | | DIOXIDE | e | 0000 PDT | | procedure are in the | | | | | | results section. | + +--------+ + + + | EXTERNAL LAB: | Routin | 08/14/2017 | | Results for this | | CHLORIDE | e | 0000 PDT | | procedure are in the | | | | | | results section. | + +--------+ + + + | EXTERNAL LAB: | Routin | 08/14/2017 | | Results for this | | POTASSIUM | e | 0000 PDT | | procedure are in the | | | | | | results section. | + +--------+ + + + | EXTERNAL LAB: SODIUM | Routin | 08/14/2017 | | Results for this | | | e | 0000 PDT | | procedure are in the | | | | | | results section. | + +--------+ + + + | EXTERNAL LAB: CBC | Routin | 08/14/2017 | | Results for this | | | e | 0000 PDT | | procedure are in the | | | | | | results section. | + +--------+ + + + | EXTERNAL LAB: EGFR | Routin | 08/14/2017 | | Results for this | | | e | 0000 PDT | | procedure are in the | | | | | | results section. | + +--------+ + + + | EXTERNAL LAB: | Routin | 08/14/2017 | | Results for this | | CREATININE | e | 0000 PDT | | procedure are in the | | | | | | results section. | + +--------+ + + + | CBC WITH | Routin | 08/14/2017 | | Results for this | | DIFFERENTIAL | e | 0000 PDT | | procedure are in the | | | | | | results section. | + +--------+ + + + | COMPREHENSIVE | Routin | 08/14/2017 | | Results for this | | METABOLIC PANEL | e | 0000 PDT | | procedure are in the | | | | | | results section. | + +--------+ + + + | EXTERNAL LAB: BUN | Routin | 08/02/2017 | | Results for this | | | e | 0000 PDT | | procedure are in the | | | | | | results section. | + +--------+ + + + | EXTERNAL LAB: | Routin | 08/02/2017 | | Results for this | | GLUCOSE | e | 0000 PDT | | procedure are in the | | | | | | results section. | + +--------+ + + + | EXTERNAL LAB: ALT | Routin | 08/02/2017 | | Results for this | | | e | 0000 PDT | | procedure are in the | | | | | | results section. | + +--------+ + + + | EXTERNAL LAB: AST | Routin | 08/02/2017 | | Results for this | | | e | 0000 PDT | | procedure are in the | | | | | | results section. | + +--------+ + + + | EXTERNAL LAB: | Routin | 08/02/2017 | | Results for this | | ALKALINE PHOSPHATASE | e | 0000 PDT | | procedure are in the | | | | | | results section. | + +--------+ + + + | EXTERNAL LAB: | Routin | 08/02/2017 | | Results for this | | BILIRUBIN, TOTAL | e | 0000 PDT | | procedure are in the | | | | | | results section. | + +--------+ + + + | EXTERNAL LAB: | Routin | 08/02/2017 | | Results for this | | ALBUMIN | e | 0000 PDT | | procedure are in the | | | | | | results section. | + +--------+ + + + | EXTERNAL LAB: | Routin | 08/02/2017 | | Results for this | | PROTEIN, TOTAL | e | 0000 PDT | | procedure are in the | | | | | | results section. | + +--------+ + + + | EXTERNAL LAB: | Routin | 08/02/2017 | | Results for this | | CALCIUM | e | 0000 PDT | | procedure are in the | | | | | | results section. | + +--------+ + + + | EXTERNAL LAB: CARBON | Routin | 08/02/2017 | | Results for this | | DIOXIDE | e | 0000 PDT | | procedure are in the | | | | | | results section. | + +--------+ + + + | EXTERNAL LAB: | Routin | 08/02/2017 | | Results for this | | CHLORIDE | e | 0000 PDT | | procedure are in the | | | | | | results section. | + +--------+ + + + | EXTERNAL LAB: | Routin | 08/02/2017 | | Results for this | | POTASSIUM | e | 0000 PDT | | procedure are in the | | | | | | results section. | + +--------+ + + + | EXTERNAL LAB: SODIUM | Routin | 08/02/2017 | | Results for this | | | e | 0000 PDT | | procedure are in the | | | | | | results section. | + +--------+ + + + | EXTERNAL LAB: | Routin | 08/02/2017 | | Results for this | | URINALYSIS | e | 0000 PDT | | procedure are in the | | | | | | results section. | + +--------+ + + + | EXTERNAL LAB: | Routin | 08/02/2017 | | Results for this | | URINALYSIS | e | 0000 PDT | | procedure are in the | | | | | | results section. | + +--------+ + + + | EXTERNAL LAB: CBC | Routin | 08/02/2017 | | Results for this | | | e | 0000 PDT | | procedure are in the | | | | | | results section. | + +--------+ + + + | EXTERNAL LAB: | Routin | 08/02/2017 | | Results for this | | PROTIME INR | e | 0000 PDT | | procedure are in the | | | | | | results section. | + +--------+ + + + | EXTERNAL LAB: | Routin | 08/02/2017 | | Results for this | | PROTIME INR | e | 0000 PDT | | procedure are in the | | | | | | results section. | + +--------+ + + + | EXTERNAL LAB: EGFR | Routin | 08/02/2017 | | Results for this | | | e | 0000 PDT | | procedure are in the | | | | | | results section. | + +--------+ + + + | EXTERNAL LAB: | Routin | 08/02/2017 | | Results for this | | CREATININE | e | 0000 PDT | | procedure are in the | | | | | | results section. | + +--------+ + + + | URINALYSIS, REFLEX | Routin | 08/02/2017 | | Results for this | | MICROSCOPIC AND/OR | e | 0000 PDT | | procedure are in the | | CULTURE | | | | results section. | + +--------+ + + + | CBC WITH | Routin | 08/02/2017 | | Results for this | | DIFFERENTIAL | e | 0000 PDT | | procedure are in the | | | | | | results section. | + +--------+ + + + | AMMONIA | Routin | 08/02/2017 | | Results for this | | | e | 0000 PDT | | procedure are in the | | | | | | results section. | + +--------+ + + + | COMPREHENSIVE | Routin | 08/02/2017 | | Results for this | | METABOLIC PANEL | e | 0000 PDT | | procedure are in the | | | | | | results section. | + +--------+ + + + | EXTERNAL LAB: VERONICA | Routin | 07/15/2017 | | Results [...] + +--------+ + + + | CBC NO DIFFERENTIAL | Routin | 07/15/2017 | | Results for this | | | e | 0000 PDT | | procedure are in the | | | | | | results section. | + +--------+ + + + | EXTERNAL LAB: BUN | Routin | 07/12/2017 | | Results for this | | | e | 0000 PDT | | procedure are in the | | | | | | results section. | + +--------+ + + + | EXTERNAL LAB: | Routin | 07/12/2017 | | Results for this | | GLUCOSE | e | 0000 PDT | | procedure are in the | | | | | | results section. | + +--------+ + + + | EXTERNAL LAB: ALT | Routin | 07/12/2017 | | Results for this | | | e | 0000 PDT | | procedure are in the | | | | | | results section. | + +--------+ + + + | EXTERNAL LAB: AST | Routin | 07/12/2017 | | Results for this | | | e | 0000 PDT | | procedure are in the | | | | | | results section. | + +--------+ + + + | EXTERNAL LAB: | Routin | 07/12/2017 | | Results for this | | BILIRUBIN, TOTAL | e | 0000 PDT | | procedure are in the | | | | | | results section. | + +--------+ + + + | EXTERNAL LAB: | Routin | 07/12/2017 | | Results for this | | ALBUMIN | e | 0000 PDT | | procedure are in the | | | | | | results section. | + +--------+ + + + | EXTERNAL LAB: | Routin | 07/12/2017 | | Results for this | | PROTEIN, TOTAL | e | 0000 PDT | | procedure are in the | | | | | | results section. | + +--------+ + + + | EXTERNAL LAB: | Routin | 07/12/2017 | | Results for this | | CALCIUM | e | 0000 PDT | | procedure are in the | | | | | | results section. | + +--------+ + + + | EXTERNAL LAB: CARBON | Routin | 07/12/2017 | | Results for this | | DIOXIDE | e | 0000 PDT | | procedure are in the | | | | | | results section. | + +--------+ + + + | EXTERNAL LAB: | Routin | 07/12/2017 | | Results for this | | CHLORIDE | e | 0000 PDT | | procedure are in the | | | | | | results section. | + +--------+ + + + | EXTERNAL LAB: | Routin | 07/12/2017 | | Results for this | | POTASSIUM | e | 0000 PDT | | procedure are in the | | | | | | results section. | + +--------+ + + + | EXTERNAL LAB: SODIUM | Routin | 07/12/2017 | | Results for this | | | e | 0000 PDT | | procedure are in the | | | | | | results section. | + +--------+ + + + | EXTERNAL LAB: BLOOD | Routin | 07/12/2017 | | Results for this | | TYPE | e | 0000 PDT | | procedure are in the | | | | | | results section. | + +--------+ + + + | EXTERNAL LAB: CBC | Routin | 07/12/2017 | | Results for this | | | e | 0000 PDT | | procedure are in the | | | | | | results section. | + +--------+ + + + | EXTERNAL LAB: EGFR | Routin | 07/12/2017 | | Results for this | | | e | 0000 PDT | | procedure are in the | | | | | | results section. | + +--------+ + + + | EXTERNAL LAB: | Routin | 07/12/2017 | | Results for this | | CREATININE | e | 0000 PDT | | procedure are in the | | | | | | results section. | + +--------+ + + + | CBC WITH | Routin | 07/12/2017 | | Results for this | | DIFFERENTIAL | e | 0000 PDT | | procedure are in the | | | | | | results section. | + +--------+ + + + | ANTIBODY SCREEN | Routin | 07/12/2017 | | Results for this | | | e | 0000 PDT | | procedure are in the | | | | | | results section. | + +--------+ + + + | AMMONIA | Routin | 07/12/2017 | | Results for this | | | e | 0000 PDT | | procedure are in the | | | | | | results section. | + +--------+ + + + | COMPREHENSIVE | Routin | 07/12/2017 | | Results for this | | METABOLIC PANEL | e | 0000 PDT | | procedure are in the | | | | | | results section. | + +--------+ + + + in this encounter Results CBC with Differential (10/19/2017) + +-------+ + + | Component | Value | Ref Range | Performed At | + +-------+ + + | [facility] | 30.0 | 26.0 - 33.0 pg | | + +-------+ + + | [facility] | 32.0 | 31.0 - 37.0 % | | + +-------+ + + | BASOPHILS % | 1.3 | 0.0 - 2.0 % | | + +-------+ + + + + | Specimen | + + | Blood | + + Comprehensive Metabolic Panel (10/19/2017) + +---------+ + + | Component | Value | Ref Range | Performed At | + +---------+ + + | ANION GAP | 9 | 7 - 21 mmol/L | | + +---------+ + + | BUN/Creatinine Ratio | 14.6 | 6 - 28.6 | | + +---------+ + + | Globulin | 4.8 (A) | 1.8 - 3.5 | | + +---------+ + + | Albumin/Globulin | 0.5 (A) | 1.1 - 2.4 | | | Ratio | | | | + +---------+ + + + + | Specimen | + + | Blood | + + External Lab: PTT (10/19/2017) + +-------+ + + | Component | Value | Ref Range | Performed At | + +-------+ + + | PTT, External | 30 | 22.9 - 41.3 | EXTERNAL LAB | + +-------+ + + + +---------+ + + | Performing | Address | City/State/Zipcode | Phone Number | | Organization | | | | + +---------+ + + | EXTERNAL LAB | | | | + +---------+ + + External Lab: JACKELYN (10/19/2017) + +-------+ + + | Component | Value | Ref Range | Performed At | + +-------+ + + | BUN, External | 19 | 6 - 23 | EXTERNAL LAB | + +-------+ + + + +---------+ + + | Performing | Address | City/State/Zipcode | Phone Number | | Organization | | | | + +---------+ + + | EXTERNAL LAB | | | | + +---------+ + + External Lab: Glucose (10/19/2017) + +---------+ + + | Component | Value | Ref Range | Performed At | + +---------+ + + | Glucose, External | 111 (A) | 70 - 100 | EXTERNAL LAB | + +---------+ + + + +---------+ + + | Performing | Address | City/State/Zipcode | Phone Number | | Organization | | | | + +---------+ + + | EXTERNAL LAB | | | | + +---------+ + + External Lab: Troponin T (10/19/2017) + +--------+ + + | Component | Value | Ref Range | Performed At | + +--------+ + + | Troponin T, External | <0.010 | 0 - 0.01 | EXTERNAL LAB | + +--------+ + + + +---------+ + + | Performing | Address | City/State/Zipcode | Phone Number | | Organization | | | | + +---------+ + + | EXTERNAL LAB | | | | + +---------+ + + External Lab: ALT (10/19/2017) + +-------+ + + | Component | Value | Ref Range | Performed At | + +-------+ + + | ALT, External | 25 | 7 - 52 | EXTERNAL LAB | + +-------+ + + + +---------+ + + | Performing | Address | City/State/Zipcode | Phone Number | | Organization | | | | + +---------+ + + | EXTERNAL LAB | | | | + +---------+ + + External Lab: AST (10/19/2017) + +--------+ + + | Component | Value | Ref Range | Performed At | + +--------+ + + | AST, External | 45 (A) | 13 - 39 | EXTERNAL LAB | + +--------+ + + + +---------+ + + | Performing | Address | City/State/Zipcode | Phone Number | | Organization | | | | + +---------+ + + | EXTERNAL LAB | | | | + +---------+ + + External Lab: Alkaline Phosphatase (10/19/2017) + +-------+ + + | Component | Value | Ref Range | Performed At | + +-------+ + + | ALP, External | 106 | 31 - 120 | EXTERNAL LAB | + +-------+ + + + +---------+ + + | Performing | Address | City/State/Zipcode | Phone Number | | Organization | | | | + +---------+ + + | EXTERNAL LAB | | | | + +---------+ + + External Lab: Bilirubin, Total (10/19/2017) + +---------+ + + | Component | Value | Ref Range | Performed At | + +---------+ + + | Bilirubin, Total, | 5.8 (A) | 0 - 1.2 | EXTERNAL LAB | | External | | | | + +---------+ + + + +---------+ + + | Performing | Address | City/State/Zipcode | Phone Number | | Organization | | | | + +---------+ + + | EXTERNAL LAB | | | | + +---------+ + + External Lab: Albumin (10/19/2017) + +---------+ + + | Component | Value | Ref Range | Performed At | + +---------+ + + | Albumin, External | 2.2 (A) | 3.5 - 5 | EXTERNAL LAB | + +---------+ + + + +---------+ + + | Performing | Address | City/State/Zipcode | Phone Number | | Organization | | | | + +---------+ + + | EXTERNAL LAB | | | | + +---------+ + + External Lab: Protein, Total (10/19/2017) + +-------+ + + | Component | Value | Ref Range | Performed At | + +-------+ + + | Protein, Total, | 7 | 6 - 8.3 | EXTERNAL LAB | | External | | | | + +-------+ + + + +---------+ + + | Performing | Address | City/State/Zipcode | Phone Number | | Organization | | | | + +---------+ + + | EXTERNAL LAB | | | | + +---------+ + + External Lab: Calcium (10/19/2017) + +---------+ + + | Component | Value | Ref Range | Performed At | + +---------+ + + | Calcium, External | 8.4 (A) | 8.5 - 10.3 | EXTERNAL LAB | + +---------+ + + + +---------+ + + | Performing | Address | City/State/Zipcode | Phone Number | | Organization | | | | + +---------+ + + | EXTERNAL LAB | | | | + +---------+ + + External Lab: Carbon Dioxide (10/19/2017) + +-------+ + + | Component | Value | Ref Range | Performed At | + +-------+ + + | Carbon Dioxide, | 25 | 19 - 31 | EXTERNAL LAB | | External | | | | + +-------+ + + + +---------+ + + | Performing | Address | City/State/Zipcode | Phone Number | | Organization | | | | + +---------+ + + | EXTERNAL LAB | | | | + +---------+ + + External Lab: Chloride (10/19/2017) + +-------+ + + | Component | [...] + +---------+ + + External Lab: Potassium (10/19/2017) + +-------+ + + | Component | Value | Ref Range | Performed At | + +-------+ + + | Potassium, External | 4.2 | 3.6 - 5.1 | EXTERNAL LAB | + +-------+ + + + +---------+ + + | Performing | Address | City/State/Zipcode | Phone Number | | Organization | | | | + +---------+ + + | EXTERNAL LAB | | | | + +---------+ + + External Lab: Sodium (10/19/2017) + +-------+ + + | Component | Value | Ref Range | Performed At | + +-------+ + + | Sodium, External | 133 | 132 - 143 | EXTERNAL LAB | + +-------+ + + + +---------+ + + | Performing | Address | City/State/Zipcode | Phone Number | | Organization | | | | + +---------+ + + | EXTERNAL LAB | | | | + +---------+ + + External Lab: CBC (10/19/2017) + + + + + | Component | Value | Ref Range | Performed At | + + + + + | WBC, External | 4.3 (A) | 4.5 - 11 | EXTERNAL LAB | + + + + + | HGB, External | 8 (A) | 13.5 - 18 | EXTERNAL LAB | + + + + + | HCT, External | 24.9 (A) | 41 - 50 | EXTERNAL LAB | + + + + + | PLT, External | 48 | 39 - 80 | EXTERNAL LAB | + + + + + | Neutrophils %, | 65.8 | 39 - 80 | EXTERNAL LAB | | External | | | | + + + + + | Lymphocytes %, | 16.3 (A) | 24 - 44 | EXTERNAL LAB | | External | | | | + + + + + | Monocytes %, | 10.8 | 0 - 12 | EXTERNAL LAB | | External | | | | + + + + + | Eosinophils %, | 5.5 | 0 - 6 | EXTERNAL LAB | | External | | | | + + + + + | RBC, External | 2.6 (A) | 4.3 - 5.7 | EXTERNAL LAB | + + + + + | MCV, External | 94 | 81 - 99 | EXTERNAL LAB | + + + + + | RDW, External | 20.4 (A) | 10.5 - 15 | EXTERNAL LAB | + + + + + + +---------+ + + | Performing | Address | City/State/Zipcode | Phone Number | | Organization | | | | + +---------+ + + | EXTERNAL LAB | | | | + +---------+ + + External Lab: Essence INR (10/19/2017) + + + + + | Component | Value | Ref Range | Performed At | + + + + + | INR, External | 1.5 | | EXTERNAL LAB | + + + + + | PT, External | 19.6 (A) | 12.8 - 15.5 | EXTERNAL LAB | + + + + + + + | Specimen | + + | Blood | + + + +---------+ + + | Performing | Address | City/State/Zipcode | Phone Number | | Organization | | | | + +---------+ + + | EXTERNAL LAB | | | | + +---------+ + + External Lab: eGFR (10/19/2017) + +--------+ + + | Component | Value | Ref Range | Performed At | + +--------+ + + | eGFR, External | 57 (A) | 60 - 99,999 | EXTERNAL LAB | + +--------+ + + + + | Specimen | + + | Blood | + + + +---------+ + + | Performing | Address | City/State/Zipcode | Phone Number | | Organization | | | | + +---------+ + + | EXTERNAL LAB | | | | + +---------+ + + External Lab: Creatinine (10/19/2017) + +-------+ + + | Component | Value | Ref Range | Performed At | + +-------+ + + | Creatinine, External | 1.3 | 0.7 - 1.33 | EXTERNAL LAB | + +-------+ + + + + | Specimen | + + | Blood | + + + +---------+ + + | Performing | Address | City/State/Zipcode | Phone Number | | Organization | | | | + +---------+ + + | EXTERNAL LAB | | | | + +---------+ + + CBC with Differential (08/23/2017) + [...] | | | + +---------+ + + CBC with Differential (08/14/2017) + +---------+ + + | Component | Value | Ref Range | Performed At | + +---------+ + + | [facility] | 31.0 | 26.0 - 33.0 pg | | + +---------+ + + | [facility] | 34.0 | 31.0 - 37.0 % | | + +---------+ + + | BASOPHILS % | 2.2 (A) | 0.0 - 2.0 % | | + +---------+ + + + + | Specimen | + + | Blood | + + Comprehensive Metabolic Panel (08/14/2017) + +---------+ + + | Component | Value | Ref Range | Performed At | + +---------+ + + | ANION GAP | 7 | 7 - 21 mmol/L | | + +---------+ + + | BUN/Creatinine Ratio | 9.1 | 6 - 28.6 | | + +---------+ + + | Globulin | 4.2 (A) | 1.8 - 3.5 | | + +---------+ + + | Albumin/Globulin | 0.5 (A) | 1.1 - 2.4 | | | Ratio | | | | + +---------+ + + + + | Specimen | + + | Blood | + + External Lab: CBC (08/14/2017) + + + + + | Component | Value | Ref Range | Performed At | + + + + + | WBC, External | 3.5 (A) | 4.5 - 11 | EXTERNAL LAB | + + + + + | HGB, External | 8.7 (A) | 13.5 - 18 | EXTERNAL LAB | + + + + + | HCT, External | 25.7 (A) | 41 - 50 | EXTERNAL LAB | + + + + + | PLT, External | 89 (A) | 30 - 36 | EXTERNAL LAB | + + + + + | Neutrophils %, | 63.5 | 39 - 80 | EXTERNAL LAB | | External | | | | + + + + + | Lymphocytes %, | 17.7 (A) | 24 - 44 | EXTERNAL LAB | | External | | | | + + + + + | Monocytes %, | 12 | 0 - 12 | EXTERNAL LAB | | External | | | | + + + + + | Eosinophils %, | 4.6 | 0 - 6 | EXTERNAL LAB | | External | | | | + + + + + | RBC, External | 2.8 (A) | 4.3 - 5.7 | EXTERNAL LAB | + + + + + | MCV, External | 92 | 81 - 99 | EXTERNAL LAB | + + + + + | RDW, External | 25.6 (A) | 10.5 - 15 | EXTERNAL LAB | + + + + + + +---------+ + + | Performing | Address | City/State/Zipcode | Phone Number | | Organization | | | | + +---------+ + + | EXTERNAL LAB | | | | + +---------+ + + External Lab: BUN (08/14/2017) + +-------+ + + | Component | Value | Ref Range | Performed At | + +-------+ + + | BUN, External | 6 | 6 - 23 | EXTERNAL LAB | + +-------+ + + + +---------+ + + | Performing | Address | City/State/Zipcode | Phone Number | | Organization | | | | + +---------+ + + | EXTERNAL LAB | | | | + +---------+ + + External Lab: Glucose (08/14/2017) + +---------+ + + | Component | Value | Ref Range | Performed At | + +---------+ + + | Glucose, External | 137 (A) | 70 - 100 | EXTERNAL LAB | + +---------+ + + + +---------+ + + | Performing | Address | City/State/Zipcode | Phone Number | | Organization | | | | + +---------+ + + | EXTERNAL LAB | | | | + +---------+ + + External Lab: Troponin T (08/14/2017) + +-------+ + + | Component | Value | Ref Range | Performed At | + +-------+ + + | Troponin T, External | <0.01 | 0 - 0.01 | EXTERNAL LAB | + +-------+ + + + +---------+ + + | Performing | Address | City/State/Zipcode | Phone Number | | Organization | | | | + +---------+ + + | EXTERNAL LAB | | | | + +---------+ + + External Lab: Lipase (08/14/2017) + +-------+ + + | Component | Value | Ref Range | Performed At | + +-------+ + + | Lipase, External | 65 | 11 - 82 | EXTERNAL LAB | + +-------+ + + + +---------+ + + | Performing | Address | City/State/Zipcode | Phone Number | | Organization | | | | + +---------+ + + | EXTERNAL LAB | | | | + +---------+ + + External Lab: ALT (08/14/2017) + +-------+ + + | Component | Value | Ref Range | Performed At | + +-------+ + + | ALT, External | 17 | 7 - 52 | EXTERNAL LAB | + +-------+ + + + +---------+ + + | Performing | Address | City/State/Zipcode | Phone Number | | Organization | | | | + +---------+ + + | EXTERNAL LAB | | | | + +---------+ + + External Lab: AST (08/14/2017) + +-------+ + + | Component | Value | Ref Range | Performed At | + +-------+ + + | AST, External | 24 | 13 - 39 | EXTERNAL LAB | + +-------+ + + + +---------+ + + | Performing | Address | City/State/Zipcode | Phone Number | | Organization | | | | + +---------+ + + | EXTERNAL LAB | | | | + +---------+ + + External Lab: Alkaline Phosphatase (08/14/2017) + +---------+ + + | Component | Value | Ref Range | Performed At | + +---------+ + + | ALP, External | 142 (A) | 31 - 120 | EXTERNAL LAB | + +---------+ + + + +---------+ + + | Performing | Address | City/State/Zipcode | Phone Number | | Organization | | | | + +---------+ + + | EXTERNAL LAB | | | | + +---------+ + + External Lab: Bilirubin, Total (08/14/2017) + +---------+ + + | Component | Value | Ref Range | Performed At | + +---------+ + + | Bilirubin, Total, | 2.5 (A) | 0 - 1.2 | EXTERNAL LAB | | External | | | | + +---------+ + + + +---------+ + + | Performing | Address | City/State/Zipcode | Phone Number | | Organization | | | | + +---------+ + + | EXTERNAL LAB | | | | + +---------+ + + External Lab: Albumin (08/14/2017) + +-------+ + + | Component | Value | Ref Range | Performed At | + +-------+ + + | Albumin, External | 2 (A) | 3.5 - 5 | EXTERNAL LAB | + +-------+ + + + +---------+ + + | Performing | Address | City/State/Zipcode | Phone Number | | Organization | | | | + +---------+ + + | EXTERNAL LAB | | | | + +---------+ + + External Lab: Protein, Total (08/14/2017) + +-------+ + + | Component | Value | Ref Range | Performed At | + +-------+ + + | Protein, Total, | 6.2 | 6 - 8.3 | EXTERNAL LAB | | External | | | | + +-------+ + + + +---------+ + + | Performing | Address | City/State/Zipcode | Phone Number | | Organization | | | | + +---------+ + + | EXTERNAL LAB | | | | + +---------+ + + External Lab: Calcium (08/14/2017) + +-------+ + + | Component | Value | Ref Range | Performed At | + +-------+ + + | Calcium, External | 8 (A) | 8.4 - 10.2 | EXTERNAL LAB | + +-------+ + + + +---------+ + + | Performing | Address | City/State/Zipcode | Phone Number | | Organization | | | | + +---------+ + + | EXTERNAL LAB | | | | + +---------+ + + External Lab: Carbon Dioxide (08/14/2017) + +-------+ + + | Component | Value | Ref Range | Performed At | + +-------+ + + | Carbon Dioxide, | 24 | 19 - 31 | EXTERNAL LAB | | External | | | | + +-------+ + + + +---------+ + + | Performing | Address | City/State/Zipcode | Phone Number | | Organization | | | | + +---------+ + + | EXTERNAL LAB | | | | + +---------+ + + External Lab: Chloride (08/14/2017) + +-------+ + + | Component | Value | Ref Range | Performed At | + +-------+ + + | Chloride, External | 106 | 95 - 112 | EXTERNAL LAB | + +-------+ + + + +---------+ + + | Performing | Address | City/State/Zipcode | Phone Number | | Organization | | | | + +---------+ + + | EXTERNAL LAB | | | | + +---------+ + + External Lab: Potassium (08/14/2017) + +-------+ + + | Component | Value | Ref Range | Performed At | + +-------+ + + | Potassium, External | 4.5 | 3.6 - 5.1 | EXTERNAL LAB | + +-------+ + + + +---------+ + + | Performing | Address | City/State/Zipcode | Phone Number | | Organization | | | | + +---------+ + + | EXTERNAL LAB | | | | + +---------+ + + External Lab: Sodium (08/14/2017) + +-------+ + + | Component | Value | Ref Range | Performed At | + +-------+ + + | Sodium, External | 133 | 132 - 143 | EXTERNAL LAB | + +-------+ + + + +---------+ + + | Performing | Address | City/State/Zipcode | Phone Number | | Organization | | | | + +---------+ + + | EXTERNAL LAB | | | | + +---------+ + + External Lab: eGFR (08/14/2017) + +-------+ + + | Component | Value | Ref Range | Performed At | + +-------+ + + | eGFR, External | >120 | | EXTERNAL LAB | + +-------+ + + + + | Specimen | + + | Blood | + + + +---------+ + + | Performing | Address | City/State/Zipcode | Phone Number | | Organization | | | | + +---------+ + + | EXTERNAL LAB | | | | + +---------+ + + External Lab: Creatinine (08/14/2017) + + + + + | Component | Value | Ref Range | Performed At | + + + + + | Creatinine, External | 0.66 (A) | 0.7 - 1.33 | EXTERNAL LAB | + + + + + + + | Specimen | + + | Blood | + + + +---------+ + + | Performing | Address | City/State/Zipcode | Phone Number | | Organization | | | | + +---------+ + + | EXTERNAL LAB | | | | + +---------+ + + External Lab: Essence SHAFFER (08/02/2017) + +-------+ + + | Component | Value | Ref Range | Performed At | + +-------+ + + | INR, External | 1.5 | | EXTERNAL LAB | + +-------+ + + + + | Specimen | + + | Blood | + + + +---------+ + + | Performing | Address | City/State/Zipcode | Phone Number | | Organization | | | | + +---------+ + + | EXTERNAL LAB | | | | + +---------+ + + External Lab: Essence INR (08/02/2017) + +-------+ + + | Component | Value | Ref Range | Performed At | + +-------+ + + | PT, External | 18.7 | | EXTERNAL LAB | + +-------+ + + + + | Specimen | + + | Blood | + + + +---------+ + + | Performing | Address | City/State/Zipcode | Phone Number | | Organization | | | | + +---------+ + + | EXTERNAL LAB | | | | + +---------+ + + CBC with Differential (08/02/2017) + +-------+ + + | Component | Value | Ref Range | Performed At | + +-------+ + + | MCH | 29.0 | 26.0 - 33.0 pg | | + +-------+ + + | MCHC | 32.0 | 31.0 - 37.0 % | | + +-------+ + + | BASOPHILS % | 0.1 | 0.0 - 2.0 % | | + +-------+ + + + + | Specimen | + + | Blood | + + Comprehensive Metabolic Panel (08/02/2017) + +---------+ + + | Component | Value | Ref Range | Performed At | + +---------+ + + | ANION GAP | 8 | 7 - 21 mmol/L | | + +---------+ + + | BUN/Creatinine Ratio | 9.9 | 6 - 28.6 | | + +---------+ + + | Globulin | 4.3 (A) | 1.8 - 3.5 | | + +---------+ + + | Albumin/Globulin | 0.5 (A) | 1.1 - 2.4 | | | Ratio | | | | + +---------+ + + + + | Specimen | + + | Blood | + + External Lab: BUN (08/02/2017) + +-------+ + + | Component | Value | Ref Range | Performed At | + +-------+ + + | BUN, External | 7 | 6 - 23 | EXTERNAL LAB | + +-------+ + + + +---------+ + + | Performing | Address | City/State/Zipcode | Phone Number | | Organization | | | | + +---------+ + + | EXTERNAL LAB | | | | + +---------+ + + External Lab: Glucose (08/02/2017) + +---------+ + + | Component | Value | Ref Range | Performed At | + +---------+ + + | Glucose, External | 129 (A) | 70 - 100 | EXTERNAL LAB | + +---------+ + + + +---------+ + + | Performing | Address | City/State/Zipcode | Phone Number | | Organization | | | | + +---------+ + + | EXTERNAL LAB | | | | + +---------+ + + External Lab: ALT (08/02/2017) + +-------+ + + | Component | Value | Ref Range | Performed At | + +-------+ + + | ALT, External | 15 | 7 - 52 | EXTERNAL LAB | + +-------+ + + + +---------+ + + | Performing | Address | City/State/Zipcode | Phone Number | | Organization | | | | + +---------+ + + | EXTERNAL LAB | | | | + +---------+ + + External Lab: AST (08/02/2017) + +-------+ + + | Component | Value | Ref Range | Performed At | + +-------+ + + | AST, External | 22 | 13 - 39 | EXTERNAL LAB | + +-------+ + + + +---------+ + + | Performing | Address | City/State/Zipcode | Phone Number | | Organization | | | | + +---------+ + + | EXTERNAL LAB | | | | + +---------+ + + External Lab: Alkaline Phosphatase (08/02/2017) + +-------+ + + | Component | Value | Ref Range | Performed At | + +-------+ + + | ALP, External | 119 | 31 - 120 | EXTERNAL LAB | + +-------+ + + + +---------+ + + | Performing | Address | City/State/Zipcode | Phone Number | | Organization | | | | + +---------+ + + | EXTERNAL LAB | | | | + +---------+ + + External Lab: Bilirubin, Total (08/02/2017) + +---------+ + + | Component | Value | Ref Range | Performed At | + +---------+ + + | Bilirubin, Total, | 3.2 (A) | 0 - 1.2 | EXTERNAL LAB | | External | | | | + +---------+ + + + +---------+ + + | Performing | Address | City/State/Zipcode | Phone Number | | Organization | | | | + +---------+ + + | EXTERNAL LAB | | | | + +---------+ + + External Lab: Albumin (08/02/2017) + +---------+ + + | Component | Value | Ref Range | Performed At | + +---------+ + + | Albumin, External | 2.2 (A) | 3.5 - 5 | EXTERNAL LAB | + +---------+ + + + +---------+ + + | Performing | Address | City/State/Zipcode | Phone Number | | Organization | | | | + +---------+ + + | EXTERNAL LAB | | | | + +---------+ + + External Lab: Protein, Total (08/02/2017) + +-------+ + + | Component | Value | Ref Range | Performed At | + +-------+ + + | Protein, Total, | 6.5 | 6 - 8.3 | EXTERNAL LAB | | External | | | | + +-------+ + + + +---------+ + + | Performing | Address | City/State/Zipcode | Phone Number | | Organization | | | | + +---------+ + + | EXTERNAL LAB | | | | + +---------+ + + External Lab: Calcium (08/02/2017) + +-------+ + + | Component | Value | Ref Range | Performed At | + +-------+ + + | Calcium, External | 8/0.1 | 8.4 - 10.2 | EXTERNAL LAB | + +-------+ + + + +---------+ + + | Performing | Address | City/State/Zipcode | Phone Number | | Organization | | | | + +---------+ + + | EXTERNAL LAB | | | | + +---------+ + + External Lab: Carbon Dioxide (08/02/2017) + +-------+ + + | Component | Value | Ref Range | Performed At | + +-------+ + + | Carbon Dioxide, | 24 | 19 - 31 | EXTERNAL LAB | | External | | | | + +-------+ + + + +---------+ + + | Performing | Address | City/State/Zipcode | Phone Number | | Organization | | | | + +---------+ + + | EXTERNAL LAB | | | | + +---------+ + + External Lab: Chloride (08/02/2017) + +-------+ + + | Component | Value | Ref Range | Performed At | + +-------+ + + | Chloride, External | 107 | 95 - 112 | EXTERNAL LAB | + +-------+ + + + +---------+ + + | Performing | Address | City/State/Zipcode | Phone Number | | Organization | | | | + +---------+ + + | EXTERNAL LAB | | | | + +---------+ + + External Lab: Potassium (08/02/2017) + +-------+ + + | Component | Value | Ref Range | Performed At | + +-------+ + + | Potassium, External | 4.1 | 3.6 - 5.1 | EXTERNAL LAB | + +-------+ + + + +---------+ + + | Performing | Address | City/State/Zipcode | Phone Number | | Organization | | | | + +---------+ + + | EXTERNAL LAB | | | | + +---------+ + + External Lab: Sodium (08/02/2017) + +-------+ + + | Component | Value | Ref Range | Performed At | + +-------+ + + | Sodium, External | 135 | 132 - 143 | EXTERNAL LAB | + +-------+ + + + +---------+ + + | Performing | Address | City/State/Zipcode | Phone Number | | Organization | | | | + +---------+ + + | EXTERNAL LAB | | | | + +---------+ + + External Lab: CBC (08/02/2017) + + + + + | Component | Value | Ref Range | Performed At | + + + + + | WBC, External | 2.4 (A) | 4.5 - 11 | EXTERNAL LAB | + + + + + | HGB, External | 8.6 (A) | 13.5 - 18 | EXTERNAL LAB | + + + + + | HCT, External | 27 (A) | 41 - 50 | EXTERNAL LAB | + + + + + | PLT, External | 111 (A) | 140 - 440 | EXTERNAL LAB | + + + + + | Neutrophils %, | 52.7 | 39 - 80 | EXTERNAL LAB | | External | | | | + + + + + | Lymphocytes %, | 31.7 | 24 - 44 | EXTERNAL LAB | | External | | | | + + + + + | Monocytes %, | 14.9 (A) | 0 - 12 | EXTERNAL LAB | | External | | | | + + + + + | Eosinophils %, | 0.6 | 0 - 6 | EXTERNAL LAB | | External | | | | + + + + + | RBC, External | 3 (A) | 4.3 - 5.7 | EXTERNAL LAB | + + + + + | MCV, External | 90 | 81 - 99 | EXTERNAL LAB | + + + + + | RDW, External | 26.4 (A) | 10.5 - 15 | EXTERNAL LAB | + + + + + + +---------+ + + | Performing | Address | City/State/Zipcode | Phone Number | | Organization | | | | + +---------+ + + | EXTERNAL LAB | | | | + +---------+ + + External Lab: eGFR (08/02/2017) + +-------+ + + | Component | Value | Ref Range | Performed At | + +-------+ + + | eGFR, External | >60 | 60 - 99,999 | EXTERNAL LAB | + +-------+ + + + + | Specimen | + + | Blood | + + + +---------+ + + | Performing | Address | City/State/Zipcode | Phone Number | | Organization | | | | + +---------+ + + | EXTERNAL LAB | | | | + +---------+ + + External Lab: Creatinine (08/02/2017) + +-------+ + + | Component | Value | Ref Range | Performed At | + +-------+ + + | Creatinine, External | 0.71 | 0.7 - 1.33 | EXTERNAL LAB | + +-------+ + + + + | Specimen | + + | Blood | + + + +---------+ + + | Performing | Address | City/State/Zipcode | Phone Number | | Organization | | | | + +---------+ + + | EXTERNAL LAB | | | | + +---------+ + + Ammonia (08/02/2017) + +---------+ + + | Component | Value | Ref Range | Performed At | + +---------+ + + | AMMONIA | 119 (A) | 11 - 35 umol/L | | + +---------+ + + + + | Specimen | + + | Blood | + + External Lab: Urinalysis (08/02/2017) + +-------+ + + | Component | Value | Ref Range | Performed At | + +-------+ + + | UA RBC, External | >50 | 0 - 4 | EXTERNAL LAB | + +-------+ + + + +---------+ + + | Performing | Address | City/State/Zipcode | Phone Number | | Organization | | | | + +---------+ + + | EXTERNAL LAB | | | | + +---------+ + + Urinalysis, Reflex Microscopic and/or Culture (08/02/2017) + + + + + | Component | Value | Ref Range | Performed At | + + + + + | COLLECTION METHOD 1 | Clean Catch | | | + + + + + | Color | Red | | | + + + + + | WBC, UA | 0 | 0 - 4 | | + + + + + | CLARITY | Hazy | | | + + + + + | Squamous epithelial, | Negative | | | | UA, POC | | | | + + + + + | CRYSTAL UA | Negative | | | + + + + + | Bacteria, UA | 1+ | | | + + + + + | CASTS | Negative | | | + + + + + + + | Specimen | + + | Urine | + + External Lab: Urinalysis (08/02/2017) + +-------+ + + | Component | Value | Ref Range | Performed At | + +-------+ + + | UA Specific [place], | 1.021 | 1.005 - 1.03 | EXTERNAL LAB | | External | [...] vascular ectasia. | | | | | [place] | | | | | [place] | | | + + + + + CBC no Differential (07/15/2017) + +-------+ + + | Component | Value | Ref Range | Performed At | + +-------+ + + | MCH | 27.3 | | | + +-------+ + + | MCHC | 32.5 | | | + +-------+ + + | MPV | 9.6 | | | + +-------+ + + + + | Specimen | + + | Blood | + + External Lab: CBC (07/15/2017) + +-------+ + + | Component | Value | Ref Range | Performed At | + +-------+ + + | WBC, External | 3.12 | | EXTERNAL LAB | + +-------+ + + | HGB, External | 7.7 | | EXTERNAL LAB | + +-------+ + + | HCT, External | 23.7 | | EXTERNAL LAB | + +-------+ + + | PLT, External | 73 | | EXTERNAL LAB | + +-------+ + + | RBC, External | 2.82 | | EXTERNAL LAB | + +-------+ + + | MCV, External | 84 | | EXTERNAL LAB | + +-------+ + + | RDW, External | 58.6 | | EXTERNAL LAB | + +-------+ + + + +---------+ + + | Performing | Address | City/State/Zipcode | Phone Number | | Organization | | | | + +---------+ + + | EXTERNAL LAB | | | | + +---------+ + + Antibody Screen (07/12/2017) + + + + + | Component | Value | Ref Range | Performed At | + + + + + | Antibody Screen | Negative | | | + + + + + + + | Specimen | + + | Blood | + + CBC with Differential (07/12/2017) + +---------+ + + | Component | Value | Ref Range | Performed At | + +---------+ + + | MCH | 26.0 | 26.0 - 33.0 pg | | + +---------+ + + | MCHC | 32.0 | 31.0 - 37.0 % | | + +---------+ + + | BASOPHILS % | 4.0 (A) | 0.0 - 2.0 % | | + +---------+ + + + + | Specimen | + + | Blood | + + Comprehensive Metabolic Panel (07/12/2017) + +---------+ + + | Component | Value | Ref Range | Performed At | + +---------+ + + | ANION GAP | 10 | 7 - 21 mmol/L | | + +---------+ + + | BUN/Creatinine Ratio | 22 | 6 - 28.6 | | + +---------+ + + | Globulin | 4.2 (A) | 1.8 - 3.5 | | + +---------+ + + | Albumin/Globulin | 0.5 (A) | 1.1 - 2.4 | | | Ratio | | | | + +---------+ + + + + | Specimen | + + | Blood | + + External Lab: BUN (07/12/2017) + +-------+ + + | Component | Value | Ref Range | Performed At | + +-------+ + + | BUN, External | 18 | 6 - 23 | EXTERNAL LAB | + +-------+ + + + +---------+ + + | Performing | Address | City/State/Zipcode | Phone Number | | Organization | | | | + +---------+ + + | EXTERNAL LAB | | | | + +---------+ + + External Lab: Glucose (07/12/2017) + +---------+ + + | Component | Value | Ref Range | Performed At | + +---------+ + + | Glucose, External | 121 (A) | 70 - 100 | EXTERNAL LAB | + +---------+ + + + +---------+ + + | Performing | Address | City/State/Zipcode | Phone Number | | Organization | | | | + +---------+ + + | EXTERNAL LAB | | | | + +---------+ + + External Lab: ALT (07/12/2017) + +-------+ + + | Component | Value | Ref Range | Performed At | + +-------+ + + | ALT, External | 14 | 7 - 52 | EXTERNAL LAB | + +-------+ + + + +---------+ + + | Performing | Address | City/State/Zipcode | Phone Number | | Organization | | | | + +---------+ + + | EXTERNAL LAB | | | | + +---------+ + + External Lab: AST (07/12/2017) + +-------+ + + | Component | Value | Ref Range | Performed At | + +-------+ + + | AST, External | 28 | 13 - 39 | EXTERNAL LAB | + +-------+ + + + +---------+ + + | Performing | Address | City/State/Zipcode | Phone Number | | Organization | | | | + +---------+ + + | EXTERNAL LAB | | | | + +---------+ + + External Lab: Bilirubin, Total (07/12/2017) + +---------+ + + | Component | [...] + +---------+ + + External Lab: Albumin (07/12/2017) + +-------+ + + | Component | Value | Ref Range | Performed At | + +-------+ + + | Albumin, External | 2 (A) | 3.5 - 5 | EXTERNAL LAB | + +-------+ + + + +---------+ + + | Performing | Address | City/State/Zipcode | Phone Number | | Organization | | | | + +---------+ + + | EXTERNAL LAB | | | | + +---------+ + + External Lab: Protein, Total (07/12/2017) + +-------+ + + | Component | Value | Ref Range | Performed At | + +-------+ + + | Protein, Total, | 6.2 | 6 - 8 | EXTERNAL LAB | | External | | | | + +-------+ + + + +---------+ + + | Performing | Address | City/State/Zipcode | Phone Number | | Organization | | | | + +---------+ + + | EXTERNAL LAB | | | | + +---------+ + + External Lab: Calcium (07/12/2017) + +---------+ + + | Component | Value | Ref Range | Performed At | + +---------+ + + | Calcium, External | 8.2 (A) | 8.4 - 10.2 | EXTERNAL LAB | + +---------+ + + + +---------+ + + | Performing | Address | City/State/Zipcode | Phone Number | | Organization | | | | + +---------+ + + | EXTERNAL LAB | | | | + +---------+ + + External Lab: Carbon Dioxide (07/12/2017) + +--------+ + + | Component | Value | Ref Range | Performed At | + +--------+ + + | Carbon Dioxide, | 18 (A) | 19 - 31 | EXTERNAL LAB | | External | | | | + +--------+ + + + +---------+ + + | Performing | Address | City/State/Zipcode | Phone Number | | Organization | | | | + +---------+ + + | EXTERNAL LAB | | | | + +---------+ + + External Lab: Chloride (07/12/2017) + +-------+ + + | Component | Value | Ref Range | Performed At | + +-------+ + + | Chloride, External | 108 | 95 - 112 | EXTERNAL LAB | + +-------+ + + + +---------+ + + | Performing | Address | City/State/Zipcode | Phone Number | | Organization | | | | + +---------+ + + | EXTERNAL LAB | | | | + +---------+ + + External Lab: Potassium (07/12/2017) + +-------+ + + | Component | Value | Ref Range | Performed At | + +-------+ + + | Potassium, External | 4.8 | 3.6 - 5.1 | EXTERNAL LAB | + +-------+ + + + +---------+ + + | Performing | Address | City/State/Zipcode | Phone Number | | Organization | | | | + +---------+ + + | EXTERNAL LAB | | | | + +---------+ + + External Lab: Sodium (07/12/2017) + +---------+ + + | Component | Value | Ref Range | Performed At | + +---------+ + + | Sodium, External | 131 (A) | 132 - 143 | EXTERNAL LAB | + +---------+ + + + +---------+ + + | Performing | Address | City/State/Zipcode | Phone Number | | Organization | | | | + +---------+ + + | EXTERNAL LAB | | | | + +---------+ + + External Lab: CBC (07/12/2017) + + + + + | Component | Value | Ref Range | Performed At | + + + + + | WBC, External | 3.9 (A) | 4.5 - 11 | EXTERNAL LAB | + + + + + | HGB, External | 5.3 (A) | 13.5 - 18 | EXTERNAL LAB | + + + + + | HCT, External | 16.8 (A) | 41 - 50 | EXTERNAL LAB | + + + + + | PLT, External | 64 (A) | 140 - 440 | EXTERNAL LAB | + + + + + | Neutrophils %, | 49 | 39 - 80 | EXTERNAL LAB | | External | | | | + + + + + | Lymphocytes %, | 40 | 24 - 44 | EXTERNAL LAB | | External | | | | + + + + + | Monocytes %, | 4 | 0 - 12 | EXTERNAL LAB | | External | | | | + + + + + | Eosinophils %, | 0 | 0 - 6 | EXTERNAL LAB | | External | | | | + + + + + | RBC, External | 2.04 (A) | 4.3 - 5.7 | EXTERNAL LAB | + + + + + | MCV, External | 82 | 80 - 99 | EXTERNAL LAB | + + + + + | RDW, External | 20.6 (A) | 10.5 - 15 | EXTERNAL LAB | + + + + + + +---------+ + + | Performing | Address | City/State/Zipcode | Phone Number | | Organization | | | | + +---------+ + + | EXTERNAL LAB | | | | + +---------+ + + External Lab: eGFR (07/12/2017) + +-------+ + + | Component | Value | Ref Range | Performed At | + +-------+ + + | eGFR, External | >60 | 60 - 999,999 | EXTERNAL LAB | + +-------+ + + + + | Specimen | + + | Blood | + + + +---------+ + + | Performing | Address | City/State/Zipcode | Phone Number | | Organization | | | | + +---------+ + + | EXTERNAL LAB | | | | + +---------+ + + External Lab: Creatinine (07/12/2017) + +-------+ + + | Component | Value | Ref Range | Performed At | + +-------+ + + | Creatinine, External | 0.82 | 0.7 - 1.33 | EXTERNAL LAB | + +-------+ + + + + | Specimen | + + | Blood | + + + +---------+ + + | Performing | Address | City/State/Zipcode | Phone Number | | Organization | | | | + +---------+ + + | EXTERNAL LAB | | | | + +---------+ + + External Lab: Blood Type (07/12/2017) + +-------+ + + | Component | Value | Ref Range | Performed At | + +-------+ + + | ABO, External | B | | EXTERNAL LAB | + +-------+ + + + +---------+ + + | Performing | Address | City/State/Zipcode | Phone Number | | Organization | | | | + +---------+ + + | EXTERNAL LAB | | | | + +---------+ + + Ammonia (07/12/2017) + +--------+ + + | Component | Value | Ref Range | Performed At | + +--------+ + + | [facility] | 65 (A) | 11 - 35 umol/L | | + +--------+ + + + + | Specimen | + + | Blood | + + in this encounter Visit Diagnoses Not on filein this encounter"
--- OUTSIDE RECORDS SUMMARY | ~2017-12-06 | XMS | Clinical Summary ---
Demographics + + + | Address | [address] | | | [place] [address] | + + + | Home Phone | | + + + | Preferred Language | Unknown | + + + | Marital Status | | + + + | Hindu Affiliation | Unknown | + + + | Race | Unknown | + + + | Ethnic Group | Unknown | + + + Author + + + | Author | [facility] | | | and [place] | + + + | Organization | [facility] | | | and [place] [...] Team Providers + +------+ + | Care Class B Driver Name | Role | Phone | + [...] | 4 times daily. | | | 2/20 | | e | | | | [...] | | | 08/0 | 09/0 | Expir | | HYDROcodone-acetamin | mouth every 12 | | | 8/20 | 7/20 | ed | | ophen (NORCO) 10-325 | hours. [...] | | | 2017 | | | Historical, MD | | +--------+ + + + [...] | LABS - EXTERNAL SCAN | | 10/19/2017 | | Results for this [...] + +---------+ + + External Lab: BUN (10/19/2017) + +-------+ + + | Component [...] | + +---------+ + + External Lab: [facility] INR (10/19/2017) + + + + + [...] +---------+ + + LABS - EXTERNAL SCAN (10/19/2017) + + + | Narrative | Performed At | + + + | Ordered by an | | | unspecified provider. | | + + + CBC with Differential (10/19/2017) + +-------+ + [...] +--------+ +---------+ | MEDICARE | MEDICA | [id number] | Medica | [phone] | | | | RE | | re | [phone] | | | | PART A | | | | | | | AND B | | | | | + +--------+ +--------+ +---------+ | [place]ID [place] | MEDICA | [id number] | Medica | [phone] | | | [...] | Self [birth year] Home: | [address] | | | al/Fam | | 1961 | [phone] | [place] | | | shauna | | | [phone] | [phone] | + +--------+ +--------+ + +"
--- OUTSIDE RECORDS SUMMARY | ~2017-12-06 | XMS | Clinical Summary ---
Demographics + + + | Address | [address] | | | [place] [address] | + + + | Home Phone | | + + + | Preferred Language | Unknown | + + + | Marital Status | | + + + | Roman Catholic Affiliation | Unknown | + + + | Race | Unknown | + + + | Ethnic Group | Unknown | + + + Author + + + | Author | [facility] | | | and [place] | + + + | Organization | [facility] | | | and [place] [...] Team Providers + +------+ + | Care Director Of Strategic Sales Name | Role | Phone | + [...] + + + | DM (diabetes mellitus) ([facility]) | 02/08/2017 | + + + | Heart failure ([facility]) | 02/08/2017 | + + + | [...] +--------+ +---------+ | MEDICARE | MEDICA | [id number] | Medica | [phone] | | | | RE | | re | [phone] | | | | PART A | | | | | | | AND B | | | | | + +--------+ +--------+ +---------+ | [place]ID [place] | MEDICA | [id number] | Medica | [phone] | | | [...] | Self | [birth year] Home: | [address] | | | al/Fam | | 1961 | [phone] | [place] | | | shauna | | | [phone] | [phone] | + +--------+ +--------+ + +"
--- OUTSIDE RECORDS SUMMARY | ~2017-12-06 | XMS | Encounter Summary ---
Demographics + + + | Address | [address] | | | [place] [address] | + + + | Home Phone | | + + + | Preferred Language | Unknown | + + + | Marital Status | | + + + | Worship Affiliation | Unknown | + + + | Race | Unknown | + + + | Ethnic Group | Unknown | + + + Author + + + | Author | [facility] | | | and [place] | + + + | Organization | [facility] | | | and [place] [...] Team Providers + +------+ + | Care Architectural Design Lecturer Name | Role | Phone | + [...] | | | | [address] | [place] [address] | | | | | [address] | | | | | | [phone] | | | +--------+ + + + [...] + +-------+ + + | [facility] Specific [place], | 1.021 | 1.005 - 1.03 | [...]
--- OUTSIDE RECORDS SUMMARY | ~2017-12-06 | XMS | Clinical Summary ---
Demographics + + + | Address | [address] | | | [place] [address] | + + + | Home Phone | | + + + | Preferred Language | Unknown | + + + | Marital Status | | + + + | Sikh Affiliation | Unknown | + + + | Race | Unknown | + + + | Ethnic Group | Unknown | + + + Author + + + | Author | [facility] | | | and [place] | + + + | Organization | [facility] [...] Team Providers + +------+ + | Care Connie Scratcher Name | Role | Phone | + [...] + + + | DM (diabetes mellitus) ([facility]) | 02/08/2017 | + + + | Heart failure ([facility]) | 02/08/2017 | + + + | [...] +--------+ +---------+ | MEDICARE | MEDICA | [id number] | Medica | [phone] | | | | RE | | re | [phone] | | | | PART A | | | | | | | AND B | | | | | + +--------+ +--------+ +---------+ | [place]ID [place] | MEDICA | [id number] | Medica | [phone] | | | [...] | Self [birth year] Home: | [address] | | | al/Fam | | 1961 | [phone] | [place] | | | [place] | | | [phone] | [phone] | + +--------+ +--------+ + +"
--- OUTSIDE RECORDS SUMMARY | ~2017-12-06 | XMS | Encounter Summary ---
Demographics + + + | Address | [address] | | | [place] [address] | + + + | Home Phone | | + + + | Preferred Language | Unknown | + + + | Marital Status | | + + + | Congregational Affiliation | Unknown | + + + | Race | Unknown | + + + | Ethnic Group | Unknown | + + + Author + + + | Author | [facility] | | | and [place] | + + + | Organization | [facility] | | | and [place] [...] Team Providers + +------+ + | Care Water Analyst Name | Role | Phone | + [...] | | | | [address] | [place] [address] | | | | | [address] | | | | | | [phone] | | | +--------+ + + + [...] + +-------+ + + | [employer] Specific [place], | 1.021 | 1.005 - 1.03 | [...]
[~2017-12-06 19:33] MED LIST changes: +CLINDAMYCIN HC300 MG PO
--- OUTSIDE RECORDS SUMMARY | 2017-12-06 19:38 | XMS ---
PreManage Notification: DALE CASEY Security Sanitary Engineering Teacher Events No recent Security Events currently on file CRITERIA MET - 6 ED Visits in 6 Months - [facility] - Has Care Guidelines - [facility] - 2 Visits in 30 Days CARE PROVIDERS MANJIT GREENBERG Internal Medicine: Geriatric Medicine 11/02/2017-Current PHONE: [phone] YULIA TADEO Student in an Organized Health Care 11/23/2017-Current Education/Training Program PHONE: Unknown [place] Case or Blast Hole Driller Current [employer] PHONE: [phone] DR MANJIT GREENBERG Primary Care Current PHONE: [phone] Guidelines Source: [facility] Guidelines Date: 11/17/2017 Care Coordination: PATIENT IS UNDER SERVICES AT [facility] DEPARTMENT.\T\nbsp; IF PATIENT IS SEEN IN THE ED, PLEASE NOTIFY THEM AT [phone].\T\nbsp; IF AFTER HOURS OR ON WEEKENDS PLEASE CALL SWITCHBOARD AT [phone] AND HAVE ON-CALL RN NOTIFIED. Care History Medical/Surgical 11/17/2017 [facility] PROVIDERS:\T\nbsp; IF PATIENT IS ADMITTED FOR DECREASE LOC DUE TO AMONIA LEVEL - CONSIDER OBSERVATION ADMIT FIRST. 09/22/2017 [facility] IF PATIENT IS SEEN DURING BUSINESS HOURS, CONTACT PATIENTS PCP DR MAZIN GREENBERG [phone] FOR TREATMENT PLAN. E.D. VISIT COUNT (12 MO.) [address] 20 [facility]. TOTAL 24 NOTE: Visits indicate total known visits. ED/UCC VISIT TRACKING (12 MO.) 12/06/2017 19:34 [facility] TYPE: Emergency COMPLAINT: - WEAKNESS 11/08/2017 15:50 [facility] TYPE: Emergency COMPLAINT: - UNRESPONSIVE 11/01/2017 10:43 [facility] TYPE: Emergency COMPLAINT: - WEAKNESS 10/19/2017 22:19 [facility] TYPE: Emergency COMPLAINT: - CHEST PAIN DIAGNOSES: - Heart failure, unspecified - Generalized edema - Type 2 diabetes mellitus without complications - Chest pain, unspecified - terminal block assembler (current) use of antibiotics - Allergy status to other antibiotic agents status - Other intermediate manager (current) drug therapy - Hepatic failure, unspecified without coma - Allergy status to narcotic agent status - Chronic obstructive pulmonary disease, unspecified 09/02/2017 20:59 [facility] [place] TYPE: Emergency COMPLAINT: - WEAKNESS 08/31/2017 16:52 [facility] TYPE: Emergency COMPLAINT: - SHORTNESS OF BREATH 08/23/2017 16:49 [facility] TYPE: Emergency COMPLAINT: - BILATERAL LEG SWELLING/ABD SWELLING DIAGNOSES: - Allergy status to other antibiotic agents status - Hepatic failure, unspecified without coma - Type 2 diabetes mellitus without complications - Heart failure, unspecified - Other senior living (current) drug therapy - Other specified soft tissue disorders - 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 08/14/2017 12:38 [facility] TYPE: Emergency COMPLAINT: - CHEST PAIN DIAGNOSES: - Heart failure, unspecified - Allergy status to other antibiotic agents status - Type 2 diabetes mellitus without complications - Bronchitis, not specified as acute or chronic - Cellulitis of right lower limb - Cellulitis of left lower limb - Precordial pain - Unspecified cirrhosis of liver - Other intermediate manager (current) drug therapy 08/02/2017 10:51 [facility] TYPE: Emergency COMPLAINT: - CATHETER PROBLEMS DIAGNOSES: - Benign prostatic hyperplasia without lower urinary tract symptoms - Chronic obstructive pulmonary disease, unspecified - Hepatic failure, unspecified without coma - Other intermediate manager (current) drug therapy - Heart failure, unspecified - Type 2 diabetes mellitus without complications - Hematuria, unspecified - Allergy status to other antibiotic agents status 07/24/2017 13:56 [facility] TYPE: Emergency COMPLAINT: - ALTERED LOC 07/12/2017 21:13 [facility] TYPE: Emergency DIAGNOSES: - Fatigue - Anemia, unspecified - Gastrointestinal hemorrhage, unspecified - Personal history of other diseases of the digestive system 07/12/2017 16:51 [facility] TYPE: Emergency COMPLAINT: - WEAKNESS DIAGNOSES: - terminal block assembler (current) use of insulin - Other intermediate manager (current) drug therapy - Chronic obstructive pulmonary disease, unspecified - Gastrointestinal hemorrhage, unspecified - Weakness - Hepatic failure, unspecified without coma - Allergy status to other antibiotic agents status - Type 2 diabetes mellitus without complications - Heart failure, unspecified 06/14/2017 18:16 [facility] TYPE: Emergency COMPLAINT: - FALL DIAGNOSES: - Allergy status to other antibiotic agents status - terminal block assembler (current) use of insulin - Abrasion of left forearm, initial encounter - Anemia, unspecified - Chronic obstructive pulmonary disease, unspecified - Liver disease, unspecified - Other intermediate manager (current) drug therapy - senior care (current) use of antibiotics - Fall on same level from slipping, tripping and stumbling with subsequent striking against other object, initial encounter - Contusion of left front wall of thorax, initial encounter - Contusion of right knee, initial encounter - Type 2 diabetes mellitus without complications - Contusion of left knee, initial encounter - Heart failure, unspecified 05/27/2017 18:01 [facility] TYPE: Emergency COMPLAINT: - WEAKNESS/ALTERED LOC 05/13/2017 14:40 [facility] TYPE: Emergency COMPLAINT: - WEAKNESS 04/27/2017 16:29 [facility] TYPE: Emergency COMPLAINT: - MULTIPLE COMPLAINTS 04/13/2017 16:48 [facility] TYPE: Emergency COMPLAINT: - ABNORMAL LABS 03/29/2017 17:09 [facility] TYPE: Emergency COMPLAINT: - CATHETER PROBLEM DIAGNOSES: - Allergy status to other antibiotic agents status - Heart failure, unspecified - Encounter for fitting and adjustment of urinary device - Type 2 diabetes mellitus with diabetic chronic kidney disease - Other senior living (current) drug therapy - terminal block assembler (current) use of insulin - Morbid (severe) obesity due to excess calories - Chronic kidney disease, unspecified - Chronic obstructive pulmonary disease, unspecified - OTHER SPECIFIED POSTPROCEDURAL STATES - Other specified postprocedural states 03/24/2017 15:12 [facility] TYPE: Emergency COMPLAINT: - CATHETER ISSUE DIAGNOSES: - Unspecified complication of genitourinary prosthetic device, implant and graft, initial encounter - terminal block assembler (current) use of insulin - Chronic obstructive pulmonary disease, unspecified - Other intermediate manager (current) drug therapy - Encounter for fitting and adjustment of urinary device - Type 2 diabetes mellitus without complications - Heart failure, unspecified - Urinary tract infection, site not specified - Allergy status to other antibiotic agents status - senior care (current) use of opiate analgesic 03/08/2017 14:30 [facility] TYPE: Emergency COMPLAINT: - CATHETER PROBLEM DIAGNOSES: - Allergy status to other antibiotic agents status - Chronic obstructive pulmonary disease, unspecified - Urinary tract infection, site not specified - Heart failure, unspecified - Hepatic failure, unspecified without coma - Other senior living (current) drug therapy - Type 2 diabetes mellitus without complications - Anemia, unspecified - terminal block assembler (current) use of insulin Plus 4 More Visits INPATIENT VISIT TRACKING (12 MO.) [facility]2017 [facility] DIAGNOSES: - Personal history of other diseases of the digestive system - Gastrointestinal hemorrhage, unspecified - Acute posthemorrhagic anemia - Alcoholic cirrhosis of liver with ascites - Anemia, unspecified 02/08/2017 04[facility] [place] [facility]: [facility] DIAGNOSES: - Hepatic failure, unspecified without coma - Gastrointestinal hemorrhage, unspecified - Pain, unspecified [email or web address]
[2017-12-07] MEDS ORDERED: SPIRONOLACTONE100 MG PO (16:48)
[2017-12-08] MEDS ORDERED: SPIRONOLACTONE100 MG PO (11:11)
[2017-12-08] MEDS ORDERED: CONSTULOSE10 GM/15 M PO ×2 (11:13→12:47)
== END 2017-12-08 16:10 | disposition home or self-care (01) ==
LOC: ED 19:33 → MS 19:35
PROVIDERS: ADMIT Internal Medicine
DX: K72.90 Hepatic failure, unspecified without coma (principal); K74.60 Unspecified cirrhosis of liver; R18.8 Other ascites; D61.818 Other pancytopenia; D73.1 Hypersplenism; I85.10 Secondary esophageal varices without bleeding; K76.6 Portal hypertension; J44.9 Chronic obstructive pulmonary disease, unspecified; G89.4 Chronic pain syndrome; I50.9 Heart failure, unspecified; N19 Unspecified kidney failure; E11.9 Type 2 diabetes mellitus without complications; N40.0 Benign prostatic hyperplasia without lower urinary tract symptoms; J96.11 Chronic respiratory failure with hypoxia; Z87.891 Personal history of nicotine dependence; Z99.81 Dependence on supplemental oxygen; Z88.1 Allergy status to other antibiotic agents; Z88.5 Allergy status to narcotic agent; Z79.2 Long term (current) use of antibiotics; Z79.891 Long term (current) use of opiate analgesic; Z79.899 Other long term (current) drug therapy
CPT/HCPCS: 36415; 80053; 81001; 82140; 82565; 84132; 84520; 85025; 85610; 94640; 94760; 96360; 96361; 99285; G0378; J7120